=== PATIENT | male | born 1955 | race Caucasian/White ===

== ENCOUNTER 2018-05-03 19:30 | Inpatient (IN) | payer MEDICARE, OTHER ==
[~2018-05-03] VITALS: Ht 182.9 cm; Wt 93.4 kg
[~2018-05-03 19:30] MED LIST: ALPR0.5T6 PO; AMLO10TA4 PO; ASPI-612 PO; ATOR40TA59 PO; CARB15DR3 EACHEYE; CARB200T PO; DIVA500T4 PO; FENO54TA6 PO; FURO20TA3 PO; HYDR-2678 PO; HYDR-2868 PO; INSU100I17 SQ; ISOS30TA4 PO; LABE200T4 PO; LOSA25TA5 PO; METO25TA4 PO; OMEP20TA8 PO; PARO40TA3 PO; POLY17PO3 PO; TRAM50TA PO
[2018-05-03 20:02] LABS: BASO # 0.1 x10^3/uL (0.0-0.2); BASO % 1 % (0-3); EOS # 0.2 x10^3/uL (0.0-0.7); EOS % 2 % (0-3); HEMATOCRIT 29.9 % (39.0-53.0); LYMPH # 2.6 x10^3/uL (1.0-4.8); LYMPH % 20 % (24-48); MEAN CORPUSCULAR HEMOGLOBIN 31 pg (25-35); MEAN CORPUSCULAR HGB CONC 33 g/dL (31-37); MEAN CORPUSCULAR VOLUME 93 fL (79-100); MONO % 23 % (0-9); NEUT # 7.1 x10^3uL (1.8-7.7); NEUT % 55 % (31-73); PLATELET COUNT 334 x10^3/uL (140-400); RED BLOOD COUNT 3.22 x10^6/uL (4.30-5.70); RED CELL DISTRIBUTION WIDTH 17.3 % (11.5-14.5)
[2018-05-03 20:17] LABS: CALCIUM 9.6 mg/dL (8.5-10.1); GFR 34.1; POTASSIUM 4.5 mmol/L (3.5-5.1)
--- NOTE | 2018-05-03 20:20 | EKG ---
[facility] [address] [place] [address] Test Date: 2018-05-03 Test Time: 20:16:36 Pat Name: AUGUST MATA Department: Room: Gender: M [employer] Shearer: TW : 1955 Requested By: ISAAK MERAZ Order Number: [id number] Reading MD: Fahad Cook Measurements Intervals [place] Rate: 55 P: 42 WI: 178 QRS: -38 QRSD: 110 T: -68 QT: 432 QTc: 415 Interpretive Statements SINUS RHYTHM ABNORMAL LEFT AXIS DEVIATION LEFT ANTERIOR FASCICULAR BLOCK ST & T ABNORMALITY, CONSIDER HIGH LATERAL ISCHEMIA OR LEFT VENTRICULAR STRAIN INFERIOR ISCHEMIA OR LEFT VENTRICULAR STRAIN ABNORMAL ECG Electronically Signed On 05-04-2018 11:50:50 CDT by Fahad Cook
[2018-05-03 20:23] LABS: ALBUMIN 2.2 g/dL (3.4-5.0); ALBUMIN/GLOBULIN RATIO 0.4 (1.0-1.7); TOTAL BILIRUBIN 0.3 mg/dL (0.2-1.0); TOTAL PROTEIN 7.1 g/dL (6.4-8.2)
[2018-05-03] MEDS: fentaNYL PF VIAL 100 MCG/2 ML VIAL IV PRN (20:26)
[2018-05-03] MEDS ORDERED: ONDANSETRON PF 4 MG/2 ML VIAL. IV ONE (20:30)
[2018-05-03 20:38] LABS: % BANDS 5 % (0-9); % EOS 2 % (0-5); % LYMPHS 13 % (24-48); % MONOS 17 % (0-10); % MYELOS 1 % (0-0); % SEGS 62 % (35-66); ANISOCYTOSIS SLIGHT; PLT ESTIMATE ADEQUATE (ADEQUATE)
--- NOTE | 2018-05-03 20:57 | PHYS DOC ---
Past Medical History Past Medical History: Anemia, Anxiety, Bipolar, CVA, Diabetes-Type II, Hypertension, Other Additional Past Medical Histor: CHRONIC BACK PAIN,OSTEOMYELITIS,SPINAL STENOSIS ,CKD Past Surgical History: Coronary Bypass Surgery, Other Additional Past Surgical Histo: L LEG,BACK,L FOOT Alcohol Use: Sober Drug Use: None Adult General Chief Complaint Chief Complaint: ALTERED MENTAL STATUS HPI HPI Patient is a 62 year old [place] [facility] patient with history of CVA, left shoulder fracture, left ankle/foot cellulitis who is currently residing at [facility] for inpatient PT/OT rehab with reports of mental status changes with hallucinations. Patient's reportedly had hallucinations for the past 5 days. Initially, it was thought possibly due to his fentanyl and oxycodone. Since fentanyl was discontinued 3 days ago and patient has continued to have hallucinations at night. Patient reports feeling is that people are trying to treat her medically are orally hydrate him. Symptoms are usually present at that time. He is clearly anal 3 with GCS of 15. Denies chest pain, shortness of breath, fever chills, nausea vomiting and sweats. Reports left shoulder pain rated 2 recent fracture and chronic left ankle pain. No other acute symptoms or complaints. . Review of Systems Review of Systems ROS as per HPI. [] All other systems were reviewed and found to be within normal limits, except as documented in this note. Current Medications Current Medications Current Medications Medications (Trade) Dose Ordered Sig/Gema Start Time Stop Time Status Last Admin Dose Admin Fentanyl Citrate (Fentanyl 2ml Vial) 25 mcg PRN Q2HRS PRN 05/03/18 20:30 05/03/18 20:26 25 MCG Ondansetron HCl (Zofran) 4 mg 1X ONCE 05/03/18 20:30 05/03/18 20:31 DC 05/03/18 20:27 4 MG Allergies Allergies Allergies Coded Allergies Type Severity Reaction Last Updated Verified gabapentin Allergy Intermediate 03/05/16 Yes indomethacin Allergy Intermediate 03/05/16 Yes lisinopril Allergy Intermediate 03/05/16 Yes sertraline Allergy Intermediate 03/05/16 Yes Physical Exam Physical Exam Constitutional: Well developed, well nourished. [] HENT: Normocephalic, atraumatic, bilateral external ears normal, oropharynx moist. [] Eyes: PERRLA, EOMI, conjunctiva normal. [] Neck: Normal range of motion, no midline tenderness. [] Cardiovascular:Heart rate regular rhythm, no murmur.[] Lungs & Thorax: Bilateral breath sounds clear to auscultation. [] Abdomen: Bowel sounds normal, soft, no tenderness. [] Skin: Warm, dry. [] Back: No tenderness. [] Extremities: Left ankle swelling, tenderness, no skin breakdown, erythema or warmth. Left shoulder, deformity, bruising, tenderness. [] Neurologic: Alert and oriented X 3, normal motor function, normal sensory function, no focal deficits noted. [] Psychologic: Affect normal, judgement normal, mood normal. [] Current Patient Data Vital Signs Vital Signs Date Time Temp Pulse Resp B/P (MAP) Pulse Ox O2 Delivery O2 Flow Rate FiO2 05/03/18 20:26 14 96 Nasal Cannula 2.0 05/03/18 19:30 98.4 55 181/82 (115) 98.4 Lab Values Laboratory Tests Test 05/03/18 19:40 05/03/18 21:38 White Blood Count 13.0 x10^3/uL (4.0-11.0) H Red Blood Count 3.22 x10^6/uL (4.30-5.70) L Hemoglobin 10.0 g/dL (13.0-17.5) L Hematocrit 29.9 % (39.0-53.0) L Mean Corpuscular Volume 93 fL (79-100) Mean Corpuscular Hemoglobin 31 pg (25-35) Mean Corpuscular Hemoglobin Concent 33 g/dL (31-37) Red Cell Distribution Width 17.3 % (11.5-14.5) H Platelet Count 334 x10^3/uL (140-400) Neutrophils (%) (Auto) 55 % (31-73) Lymphocytes (%) (Auto) 20 % (24-48) L Monocytes (%) (Auto) 23 % (0-9) H Eosinophils (%) (Auto) 2 % (0-3) Basophils (%) (Auto) 1 % (0-3) Neutrophils # (Auto) 7.1 x10^3uL (1.8-7.7) Lymphocytes # (Auto) 2.6 x10^3/uL (1.0-4.8) Monocytes # (Auto) 3.0 x10^3/uL (0.0-1.1) H Eosinophils # (Auto) 0.2 x10^3/uL (0.0-0.7) Basophils # (Auto) 0.1 x10^3/uL (0.0-0.2) Segmented Neutrophils % 62 % (35-66) Band Neutrophils % 5 % (0-9) Lymphocytes % 13 % (24-48) L Monocytes % 17 % (0-10) H Eosinophils % 2 % (0-5) Myelocytes % 1 % (0-0) H Platelet Estimate Adequate (ADEQUATE) Anisocytosis Slight Erythrocyte Sedimentation Rate 103 (0-15) H D-Dimer (Elke) 1.85 ug/mlFEU (0.00-0.50) H Sodium Level 138 mmol/L (136-145) Potassium Level 4.5 mmol/L (3.5-5.1) Chloride Level 102 mmol/L (98-107) Carbon Dioxide Level 27 mmol/L (21-32) Anion Gap 9 (6-14) Blood Urea Nitrogen 31 mg/dL (8-26) H Creatinine 2.0 mg/dL (0.7-1.3) H Estimated GFR (Cockcroft-Gault) 34.1 BUN/Creatinine Ratio 16 (6-20) Glucose Level 137 mg/dL (70-99) H Calcium Level 9.6 mg/dL (8.5-10.1) Total Bilirubin 0.3 mg/dL (0.2-1.0) Aspartate Amino Transferase (AST) 14 U/L (15-37) L Alanine Aminotransferase (ALT) 12 U/L (16-63) L Alkaline Phosphatase 90 U/L (46-116) C-Reactive Protein, Quantitative 99.8 mg/L (0-3.3) H Total Protein 7.1 g/dL (6.4-8.2) Albumin 2.2 g/dL (3.4-5.0) L Albumin/Globulin Ratio 0.4 (1.0-1.7) L Thyroid Stimulating Hormone (TSH) 3.730 uIU/mL (0.358-3.74) Ethyl Alcohol Level < 10 mg/dL (0-10) Urine Collection Type Unknown Urine Color Yellow Urine Clarity Clear Urine pH 6.0 Urine Specific [place] 1.020 Urine Protein >=300 mg/dL (NEG-TRACE) Urine Glucose (UA) Negative mg/dL (NEG) Urine Ketones (Stick) Negative mg/dL (NEG) Urine Blood Small (NEG) Urine Nitrite Negative (NEG) Urine Bilirubin Negative (NEG) Urine Urobilinogen Dipstick 1.0 mg/dL (0.2 mg/dL) Urine Leukocyte Esterase Moderate (NEG) Urine RBC 0 /HPF (0-2) Urine WBC 20-40 /HPF (0-4) Urine Bacteria Moderate /HPF (0-FEW) Urine Mucus Mod /LPF Urine Sperm Present /HPF Urine Opiates Screen Neg (NEG) Urine Methadone Screen Neg (NEG) Urine Barbiturates Neg (NEG) Urine Phencyclidine Screen Neg (NEG) Urine Amphetamine/Methamphetamine Neg (NEG) Urine Benzodiazepines Screen Neg (NEG) Urine Cocaine Screen Neg (NEG) Urine Cannabinoids Screen Neg (NEG) Urine Ethyl Alcohol Neg (NEG) Laboratory Tests 05/03/18 19:40 Laboratory Tests 05/03/18 19:40 EKG EKG [] Radiology/Procedures Radiology/Procedures [CT head: No acute findings per radiology report Left ankle x-ray: Official radiology report pending] Course & Med Decision Making Course & Med Decision Making Pertinent Labs and Imaging studies reviewed. (See chart for details) [Patient with GCS of 15 ED. No hallucinations rest while in the emergency department. CT head, nonacute. Patient noted to have chronic renal insufficiency and elevated inflammatory/infectious disease markers with concern of recurrence of osteoarthritis of left foot. Will admit to the hospitalist service for anticipated infectious disease and neurology consult. Will defer anabolic utilizing patient to hospitalist. Inpatient bridge orders placed in consultation with Dr. marti. ] Dragon Disclaimer Dragon Disclaimer This electronic medical record was generated, in whole or in part, using a voice recognition dictation system. Departure Departure Impression: Primary Impression: Altered mental status Additional Impression: Left ankle pain Disposition: ADMITTED INPATIENT Admitting Physician: Jo Marti Condition: STABLE Referrals: MARILEE BACH APRN (PCP) Problem Qualifiers ISAAK MERAZ DO May 03, 2018 20:57
--- NOTE | 2018-05-03 21:07 | RAD ---
CT head without intravenous contrast History: Altered mental status. Comparison: CT head March 05, 2016. Technique: Axial images are obtained of the head from the skull base through the vertex without IV contrast. Exposure: One or more of the following individualized dose reduction techniques were utilized for this examination: 1. Automated exposure control 2. Adjustment of the mA and/or kV according to patient size 3. Use of iterative reconstruction technique Findings: The ventricles are appropriate in size, shape, and location for the patient's age. No obvious intracranial mass, mass-effect, midline shift, hemorrhage or obvious acute infarction is identified. Basilar cisterns are patent. Patchy, nonspecific white matter low-attenuation seen, probably from chronic microvascular ischemic disease. Bone windows demonstrate no acute calvarial abnormality. Mild mucosal disease involves left maxillary sinus. Impression: 1. No acute intracranial process. Please note that CT can be relatively insensitive to acute ischemic infarction for up to 24 hours after symptom onset. 2. Nonspecific white matter changes, probably from chronic microvascular ischemic disease. Electronically signed by: Garrick Fernandes MD (05/03/2018 9:03 PM) [facility]
[2018-05-03 21:46] LABS: BILIRUBIN,URINE NEGATIVE (NEG); CLARITY,URINE CLEAR; COLOR,URINE YELLOW; NITRITE,URINE NEGATIVE (NEG); PROTEIN,URINE >=300 mg/dL (NEG-TRACE)
[2018-05-03 21:50] LABS: BACTERIA,URINE MODERATE /HPF (0-FEW); RBC,URINE 0 /HPF (0-2); SPERM,URINE PRESENT /HPF; WBC,URINE 20-40 /HPF (0-4)
[2018-05-03 21:53] LABS: AMPHETAMINE/METHAMPHETAMINE NEG (NEG); BARBITURATES NEG (NEG); BENZODIAZEPINES NEG (NEG); CANNABINOIDS NEG (NEG); COCAINE NEG (NEG); METHADONE NEG (NEG); OPIATES NEG (NEG); PHENCYCLIDINE NEG (NEG)
[2018-05-03] MEDS ORDERED: ONDANSETRON PF 4 MG/2 ML VIAL. IV PRN (22:15)
[2018-05-03] MEDS ORDERED: fentaNYL PF VIAL 100 MCG/2 ML VIAL IV PRN (22:15)
[2018-05-03] MEDS ORDERED: PIP/TAZO PER PHARMACY MC PRN (22:30)
[2018-05-03] MEDS ORDERED: VANCOMYCIN PER PHARMACY MC PRN (22:30)
[2018-05-03] MEDS ORDERED: PIPERACILLIN/TAZOBACTAM 3.375 GM in IV NORMAL SALINE 50ML 50 ML IV ONE (22:45)
[2018-05-03] MEDS ORDERED: VANCOMYCIN 2 GM in IV NORMAL SALINE 500ML BAG 500 ML IV ONE (23:00)
[2018-05-04] MEDS: IV NORMAL SALINE 1000ML BAG 1,000 ML IV SCH ×3 (00:25→18:50)
[2018-05-04] MEDS: fentaNYL PF VIAL 100 MCG/2 ML VIAL IV PRN ×3 (01:28→14:34)
[2018-05-04 03:00] VITALS: BP 137/44
[2018-05-04] MEDS ORDERED: OXYC5TAB95 PO (03:11)
[2018-05-04] MEDS ORDERED: MULT-246 PO (03:11)
[2018-05-04] MEDS ORDERED: OMEG1CAP6 PO (03:11)
[2018-05-04] MEDS ORDERED: MICO71PO4 TP (03:11)
[2018-05-04] MEDS ORDERED: METO100T7 PO (03:11)
[2018-05-04] MEDS ORDERED: TEMA7.5C PO (03:11)
[2018-05-04] MEDS ORDERED: PARO40TA3 PO (03:11)
[2018-05-04] MEDS ORDERED: ZINC50TA33 PO (03:11)
[2018-05-04] MEDS ORDERED: CLON0.1T PO (03:11)
[2018-05-04] MEDS ORDERED: ALLO100T PO (03:11)
[2018-05-04] MEDS ORDERED: LIDO700A39 TP (03:11)
[2018-05-04] MEDS ORDERED: INSU100V13 SQ (03:11)
[2018-05-04] MEDS ORDERED: CHOL2000 PO (03:11)
[2018-05-04] MEDS: PIPERACILLIN/TAZOBACTAM 3.375 GM in IV NORMAL SALINE 50ML 50 ML IV SCH ×3 (05:59→18:50)
[2018-05-04 07:00] VITALS: BP 157/54
--- NOTE | 2018-05-04 07:58 | RAD ---
Three-view left ankle study Clinical indications: Lateral left ankle pain. History of osteomyelitis. FINDINGS: There is diffuse soft tissue swelling most prominent within the plantar aspect of the hindfoot. There is fragmentation of the calcaneus with apparent coronal fracture of the distal body with flattening of Boehler's angle and plantar subluxation of the navicular bone. This may be seen with Charcot's neuroarthropathy. No focal osteolytic process is seen to indicate osteomyelitis however. Mortise ankle joint appears intact. IMPRESSION: Fragmentation and fracture of the calcaneus which may be seen with Charcot's neuroarthropathy. Electronically signed by: Bk Estrada MD (05/04/2018 7:54 AM) [facility]
[2018-05-04] MEDS: LACTOBACILLUS RHAMNOSUS GG 1 CAPSULE. PO SCH ×2 (08:21→21:07)
--- NOTE | 2018-05-04 08:42 | PDOC1 ---
History and Physical Date of Admission Date of Admission DATE: 05/04/18 TIME: 08:39 Identification/Chief Complaint Chief Complaint foot pain, prior osteo Source Source: Chart review, Patient History of Present Illness History of Present Illness Mr. Byrd is a 62 year old admit from medical [facility] for confusion, disorientation and hallucination . Left foot pain, acute on chroinc prior osteo req. surg at [facility]. HAs had some confusion, he had worsening neuropathic pain, with pain not letting him sleep for days, shooting electric pain, a little improved with fentanyl and oxycodone. And he thought meds were causing confusion. fentanyl was discontinued 3 days ago He is upset about his medical care, and believes he has been in "[facility]" that people are just waiting around to ther. shoulder pain and foot pain 02/26, now 6 after meds Past Medical History Past Medical History [place] [facility] patient with history of CVA, left shoulder fracture, left ankle/foot cellulitis Cardiovascular: CAD, CHF, HTN, MO, Hyperlipidemia Pulmonary: No pertinent hx CENTRAL NERVOUS SYSTEM: CVA, Other GI: GERD, Peptic Ulcer disease, Other Heme/Onc: No pertinent hx Hepatobiliary: No pertinent hx Psych: Anxiety Musculoskeletal: Osteoarthritis Rheumatologic: No pertinent hx Infectious disease: No pertinent hx Renal/: Chronic renal insuff Past Surgical History Past Surgical History: CABG, Total hip replacement, Colon Resection, Other Family History Family History: Coronary Artery Disease, Heart Disease Family History: Parent Social History Smoke: No ALCOHOL: none Drugs: None Current Medications Current Medications Current Medications Fentanyl Citrate (Fentanyl 2ml Vial) 25 mcg PRN Q2HRS PRN IV SEVERE PAIN Last administered on 05/04/18at 08:21; Start 05/03/18 at 20:30; Stop 05/04/18 at 20 :29 Ondansetron HCl (Zofran) 4 mg 1X ONCE IV Last administered on 05/03/18at 20:27 ; Start 05/03/18 at 20:30; Stop 05/03/18 at 20:31; Status DC Ondansetron HCl (Zofran) 4 mg PRN Q8HRS PRN IV NAUSEA/VOMITING 1ST CHOICE Last administered on 05/03/18at 23:28; Start 05/03/18 at 22:15; Stop 05/04/18 at 22 :14 Fentanyl Citrate (Fentanyl 2ml Vial) 25 mcg PRN Q2MIN PRN IV SEVERE PAIN; Start 05/03/18 at 22:15; Stop 05/04/18 at 00:00; Status DC Sodium Chloride 1,000 ml @ 150 mls/hr Q6H40M IV Last administered on at 05:58; Start 05/03/18 at 22:30; Stop 05/04/18 at 22:29 Vancomycin HCl (Vanco Per Pharmacy) 1 each PRN DAILY PRN MC SEE COMMENTS Last administered on 05/04/18at 01:50; Start 05/03/18 at 22:30 Piperacillin Sod/ Tazobactam Sod (Zosyn Per Pharmacy) 1 each PRN DAILY PRN MC SEE COMMENTS; Start 05/03/18 at 22:30 Vancomycin HCl 2 gm/Sodium Chloride 500 ml @ 250 mls/hr 1X ONCE IV Last administered on 05/04/18at 00:24; Start 05/03/18 at 23:00; Stop 05/04/18 at 00 :59; Status DC Piperacillin Sod/ Tazobactam Sod 3.375 gm/Sodium Chloride 50 ml @ 100 mls/hr 1X ONCE IV Last administered on 05/03/18at 23:32; Start 05/03/18 at 22:45; Stop 05/03/18 at 23:14; Status DC Influenza Virus Vaccine (Afluria Trivalent [id number] Syringe) 0.5 ml ONCE ONCE VAX IM ; Start 05/04/18 at 09:00; Stop 05/04/18 at 09:01 Piperacillin Sod/ Tazobactam Sod 3.375 gm/Sodium Chloride 50 ml @ 100 mls/hr Q6HRS IV Last administered on 05/04/18at 05:59; Start 05/04/18 at 06:00 Lactobacillus Rhamnosus (Culturelle) 1 cap BID PO Last administered on at 08:21; Start 05/04/18 at 09:00 Vancomycin HCl 1.5 gm/Sodium Chloride 500 ml @ 250 mls/hr Q24H IV ; Start at 01:00 Vancomycin HCl (Vancomycin Trough Level) 1 each 1X ONCE MC ; Start 05/06/18 at 00:30; Stop 05/06/18 at 00:31 Active Scripts Active Reported Vitamin D (Cholecalciferol (Vitamin D3)) 2,000 Unit Capsule 1 Cap PO DAILY Zinc (Zinc Amino Acid Chelate) 50 Mg Tablet 50 Mg PO Temazepam 7.5 Mg Capsule 7.5 Mg PO Q12 PRN Paroxetine Hcl 40 Mg Tablet 1 Tab PO HS Oxycodone Hcl 5 Mg Tablet 1 Tab PO QID PRN Miconazorb Af (Miconazole Nitrate) 71 Gm Powder 71 Gm TP Multi-Vitamin Daily (Multivitamin) 1 Each Tablet 1 Each PO Metoprolol Tartrate 100 Mg Tablet 1 Tab PO BID Lidocaine 1 Each Adh..patch 1 Each TP Levemir (Insulin Detemir) 100 Unit/1 Ml Vial 25 Unit SQ HS Fish Oil 1,000 Mg Capsule ([place]-3 Fatty Acids/Fish Oil) 1 Each Capsule 1 Each PO Clonidine Hcl 0.1 Mg Tablet 0.1 Mg PO TID Allopurinol 100 Mg Tablet 2 Tab PO DAILY Lortab 5-325 mg Tablet (Hydrocodone/Acetaminophen) 1 Each Tablet 1 Tab PO PRN Q6HRS PRN Lofibra (Fenofibrate) 54 Mg Tablet 54 Mg PO DAILY Alprazolam 0.5 Mg Tablet 1 Tab PO TID PRN PRN Paroxetine Hcl 40 Mg Tablet 1 Tab PO HS Tramadol Hcl 50 Mg Tablet 1 Tab PO PRN Q6HRS Refresh Optive Eye Drops (Carboxymethylcellulos/Glycerin) 15 Ml Drops 1 Drop EACHEYE PRN BID PRN Atorvastatin Calcium 40 Mg Tablet 1 Tab PO DAILY Aspirin Ec (Aspirin) 81 Mg Tablet.dr 1 Tab PO DAILY Novolog Flexpen (Insulin Aspart) 100 Unit/1 Ml Insuln.pen 10 Unit SQ TIDAC Allergies Allergies: Coded Allergies: gabapentin (Verified Allergy, Intermediate, 03/05/16) indomethacin (Verified Allergy, Intermediate, 03/05/16) lisinopril (Verified Allergy, Intermediate, 03/05/16) sertraline (Verified Allergy, Intermediate, 03/05/16) ROS General: YES: Chills, Fatigue; No: Night Sweats, Malaise, Appetite, Other PSYCHOLOGICAL ROS: YES: Anxiety, Irritablity, Sleep disturbances, Other (PTSD) ; No: Behavioral Disorder, Concentration difficultie, Decreased libido, Depression, Disorientation, Hallucinations, Hostility, Memory difficulties, Mood Swings, Obsessive thoughts Eyes: No Blurry vision, No Decreased vision, No Double vision, No Dry eyes, No Excessive tearing, No Eye Pain, No Itchy Eyes, No Loss of vision, No Photophobia , No Scotomata, No Uses contacts, No Uses glasses, No Other HEENT: No: Heacaches, Visual Changes, Hearing change, Nasal congestion, Nasal discharge, Oral lesions, Sinus pain, Sore Throat, Epistaxis, Sneezing, Snoring, Tinnitus, Vertigo, Vocal changes, Other Respiratory: No: Cough, Hemoptysis, Orthopnea, Pleuritic Pain, Shortness of breath, SOB with excertion, Sputum Changes, Stridor, Tachypnea, Wheezing, Other Cardiovascular: No Chest Pain, No Palpitations, No Orthopnea, No Paroxysmal Noc. Dyspnea, No Edema, No Lt Headedness, No Other Gastrointestinal: No Nausea, No Vomiting, No Abdominal Pain, No Diarrhea, No Constipation, No Melena, No Hematochezia, No Other Genitourinary: No Dysuria, No Frequency, No Incontinence, No Hematuria, No Retention, No Discharge, No Urgency, No Pain, No Flank Pain, No Other, No , No , No , No , No , No , No Musculoskeletal: Yes Gait Disturbance, Yes Joint Pain, Yes Joint Stiffness, Yes Pain In: Neurological: Yes Gait Disturbance, Yes Other; No Behavorial Changes, No Bowel/Bladder ControlChng, No Confusion, No Dizziness, No Headaches, No Impaired Coord/balance, No Memory Loss, No Numbness/ Tingling, No Seizures, No Speech Problems, No Tremors, No Visual Changes, No Weakness Skin: Yes Dry Skin; No Eczema, No Hair Changes, No Lumps, No Mole Changes, No Mottling, No Nail Changes, No Pruritus, No Rash, No Skin Lesion Changes, No Other, No Acne Physical Exam General: Alert, Oriented X3, Cooperative, mild distress HEENT: Atraumatic, PERRLA, EOMI Lungs: Clear to auscultation, Normal air movement Heart: S1S2, other Abdomen: Normal bowel sounds, Soft Rectal Exam: not examined Extremities: No clubbing, No cyanosis, Normal pulses, Other (left foot swollen , not tender, chronic neuropathic pain) Skin: No rashes, No significant lesion Neuro: Normal speech, Normal tone, Sensation intact Psych/Mental Status: Mental status NL, Mood NL Vitals Vitals Vital Signs Date Time Temp Pulse Resp B/P (MAP) Pulse Ox O2 Delivery O2 Flow Rate FiO2 05/04/18 08:21 Nasal Cannula 2.0 05/04/18 07:00 98.4 64 16 157/54 (88) 94 98.4 Labs Labs Laboratory Tests Test 05/03/18 19:40 05/03/18 21:38 05/04/18 08:03 White Blood Count 13.0 x10^3/uL (4.0-11.0) Red Blood Count 3.22 x10^6/uL (4.30-5.70) Hemoglobin 10.0 g/dL (13.0-17.5) Hematocrit 29.9 % (39.0-53.0) Mean Corpuscular Volume 93 fL (79-100) Mean Corpuscular Hemoglobin 31 pg (25-35) Mean Corpuscular Hemoglobin Concent 33 g/dL (31-37) Red Cell Distribution Width 17.3 % (11.5-14.5) Platelet Count 334 x10^3/uL (140-400) Neutrophils (%) (Auto) 55 % (31-73) Lymphocytes (%) (Auto) 20 % (24-48) Monocytes (%) (Auto) 23 % (0-9) Eosinophils (%) (Auto) 2 % (0-3) Basophils (%) (Auto) 1 % (0-3) Neutrophils # (Auto) 7.1 x10^3uL (1.8-7.7) Lymphocytes # (Auto) 2.6 x10^3/uL (1.0-4.8) Monocytes # (Auto) 3.0 x10^3/uL (0.0-1.1) Eosinophils # (Auto) 0.2 x10^3/uL (0.0-0.7) Basophils # (Auto) 0.1 x10^3/uL (0.0-0.2) Segmented Neutrophils % 62 % (35-66) Band Neutrophils % 5 % (0-9) Lymphocytes % 13 % (24-48) Monocytes % 17 % (0-10) Eosinophils % 2 % (0-5) Myelocytes % 1 % (0-0) Platelet Estimate Adequate (ADEQUATE) Anisocytosis Slight Erythrocyte Sedimentation Rate 103 (0-15) D-Dimer (Elke) 1.85 ug/mlFEU (0.00-0.50) Sodium Level 138 mmol/L (136-145) Potassium Level 4.5 mmol/L (3.5-5.1) Chloride Level 102 mmol/L (98-107) Carbon Dioxide Level 27 mmol/L (21-32) Anion Gap 9 (6-14) Blood Urea Nitrogen 31 mg/dL (8-26) Creatinine 2.0 mg/dL (0.7-1.3) Estimated GFR (Cockcroft-Gault) 34.1 BUN/Creatinine Ratio 16 (6-20) Glucose Level 137 mg/dL (70-99) Calcium Level 9.6 mg/dL (8.5-10.1) Total Bilirubin 0.3 mg/dL (0.2-1.0) Aspartate Amino Transf (AST/SGOT) 14 U/L (15-37) Alanine Aminotransferase (ALT/SGPT) 12 U/L (16-63) Alkaline Phosphatase 90 U/L (46-116) C-Reactive Protein, Quantitative 99.8 mg/L (0-3.3) Total Protein 7.1 g/dL (6.4-8.2) Albumin 2.2 g/dL (3.4-5.0) Albumin/Globulin Ratio 0.4 (1.0-1.7) Thyroid Stimulating Hormone (TSH) 3.730 uIU/mL (0.358-3.74) Ethyl Alcohol Level < 10 mg/dL (0-10) Urine Collection Type Unknown Urine Color Yellow Urine Clarity Clear Urine pH 6.0 Urine Specific [place] 1.020 Urine Protein >=300 mg/dL (NEG-TRACE) Urine Glucose (UA) Negative mg/dL (NEG) Urine Ketones (Stick) Negative mg/dL (NEG) Urine Blood Small (NEG) Urine Nitrite Negative (NEG) Urine Bilirubin Negative (NEG) Urine Urobilinogen Dipstick 1.0 mg/dL (0.2 mg/dL) Urine Leukocyte Esterase Moderate (NEG) Urine RBC 0 /HPF (0-2) Urine WBC 20-40 /HPF (0-4) Urine Bacteria Moderate /HPF (0-FEW) Urine Mucus Mod /LPF Urine Sperm Present /HPF Urine Opiates Screen Neg (NEG) Urine Methadone Screen Neg (NEG) Urine Barbiturates Neg (NEG) Urine Phencyclidine Screen Neg (NEG) Urine Amphetamine/Methamphetamine Neg (NEG) Urine Benzodiazepines Screen Neg (NEG) Urine Cocaine Screen Neg (NEG) Urine Cannabinoids Screen Neg (NEG) Urine Ethyl Alcohol Neg (NEG) Glucose (Fingerstick) 180 mg/dL (70-99) Laboratory Tests Test 05/03/18 19:40 05/03/18 21:38 05/04/18 08:03 White Blood Count 13.0 x10^3/uL (4.0-11.0) Red Blood Count 3.22 x10^6/uL (4.30-5.70) Hemoglobin 10.0 g/dL (13.0-17.5) Hematocrit 29.9 % (39.0-53.0) Mean Corpuscular Volume 93 fL (79-100) Mean Corpuscular Hemoglobin 31 pg (25-35) Mean Corpuscular Hemoglobin Concent 33 g/dL (31-37) Red Cell Distribution Width 17.3 % (11.5-14.5) Platelet Count 334 x10^3/uL (140-400) Neutrophils (%) (Auto) 55 % (31-73) Lymphocytes (%) (Auto) 20 % (24-48) Monocytes (%) (Auto) 23 % (0-9) Eosinophils (%) (Auto) 2 % (0-3) Basophils (%) (Auto) 1 % (0-3) Neutrophils # (Auto) 7.1 x10^3uL (1.8-7.7) Lymphocytes # (Auto) 2.6 x10^3/uL (1.0-4.8) Monocytes # (Auto) 3.0 x10^3/uL (0.0-1.1) Eosinophils # (Auto) 0.2 x10^3/uL (0.0-0.7) Basophils # (Auto) 0.1 x10^3/uL (0.0-0.2) Segmented Neutrophils % 62 % (35-66) Band Neutrophils % 5 % (0-9) Lymphocytes % 13 % (24-48) Monocytes % 17 % (0-10) Eosinophils % 2 % (0-5) Myelocytes % 1 % (0-0) Platelet Estimate Adequate (ADEQUATE) Anisocytosis Slight Erythrocyte Sedimentation Rate 103 (0-15) D-Dimer (Elke) 1.85 ug/mlFEU (0.00-0.50) Sodium Level 138 mmol/L (136-145) Potassium Level 4.5 mmol/L (3.5-5.1) Chloride Level 102 mmol/L (98-107) Carbon Dioxide Level 27 mmol/L (21-32) Anion Gap 9 (6-14) Blood Urea Nitrogen 31 mg/dL (8-26) Creatinine 2.0 mg/dL (0.7-1.3) Estimated GFR (Cockcroft-Gault) 34.1 BUN/Creatinine Ratio 16 (6-20) Glucose Level 137 mg/dL (70-99) Calcium Level 9.6 mg/dL (8.5-10.1) Total Bilirubin 0.3 mg/dL (0.2-1.0) Aspartate Amino Transf (AST/SGOT) 14 U/L (15-37) Alanine Aminotransferase (ALT/SGPT) 12 U/L (16-63) Alkaline Phosphatase 90 U/L (46-116) C-Reactive Protein, Quantitative 99.8 mg/L (0-3.3) Total Protein 7.1 g/dL (6.4-8.2) Albumin 2.2 g/dL (3.4-5.0) Albumin/Globulin Ratio 0.4 (1.0-1.7) Thyroid Stimulating Hormone (TSH) 3.730 uIU/mL (0.358-3.74) Ethyl Alcohol Level < 10 mg/dL (0-10) Urine Collection Type Unknown Urine Color Yellow Urine Clarity Clear Urine pH 6.0 Urine Specific [place] 1.020 Urine Protein >=300 mg/dL (NEG-TRACE) Urine Glucose (UA) Negative mg/dL (NEG) Urine Ketones (Stick) Negative mg/dL (NEG) Urine Blood Small (NEG) Urine Nitrite Negative (NEG) Urine Bilirubin Negative (NEG) Urine Urobilinogen Dipstick 1.0 mg/dL (0.2 mg/dL) Urine Leukocyte Esterase Moderate (NEG) Urine RBC 0 /HPF (0-2) Urine WBC 20-40 /HPF (0-4) Urine Bacteria Moderate /HPF (0-FEW) Urine Mucus Mod /LPF Urine Sperm Present /HPF Urine Opiates Screen Neg (NEG) Urine Methadone Screen Neg (NEG) Urine Barbiturates Neg (NEG) Urine Phencyclidine Screen Neg (NEG) Urine Amphetamine/Methamphetamine Neg (NEG) Urine Benzodiazepines Screen Neg (NEG) Urine Cocaine Screen Neg (NEG) Urine Cannabinoids Screen Neg (NEG) Urine Ethyl Alcohol Neg (NEG) Glucose (Fingerstick) 180 mg/dL (70-99) VTE Prophylaxis Ordered VTE Prophylaxis Devices: No VTE Pharmacological Prophylaxi: Yes Assessment/Plan Assessment/Plan sepsis, cellulitis probable osteomyelitis left foot Dm2 CAD, hx CABG Htn, chronic diastoilc CHF left arm fracture, shoulder and wrist, poorly mobile with left foot and left arm unusable PHU MESA MD May 04, 2018 08:42
[2018-05-04] MEDS ORDERED: TEMAZEPAM 7.5 MG CAPSULE PO PRN (08:45)
[2018-05-04] MEDS ORDERED: traMADol 50 MG TABLET PO PRN (08:45)
[2018-05-04] MEDS ORDERED: POLYVINYL ALCOHOL 1.4% OPHTH SOLUTION 15ML BOTTLE. OU PRN (09:15)
[2018-05-04] MEDS ORDERED: SALIVA STIMULANT AGENT 44ML SPRAY BOTTLE. PO PRN (09:15)
[2018-05-04 09:44] LABS: BASO % 0 % (0-3); EOS # 0.2 x10^3/uL (0.0-0.7); EOS % 1 % (0-3); HEMATOCRIT 28.3 % (39.0-53.0); HEMOGLOBIN 9.1 g/dL (13.0-17.5); LYMPH # 2.1 x10^3/uL (1.0-4.8); LYMPH % 18 % (24-48); MEAN CORPUSCULAR HEMOGLOBIN 30 pg (25-35); MEAN CORPUSCULAR HGB CONC 32 g/dL (31-37); MEAN CORPUSCULAR VOLUME 94 fL (79-100); MONO # 2.2 x10^3/uL (0.0-1.1); MONO % 19 % (0-9); NEUT % 61 % (31-73); PLATELET COUNT 318 x10^3/uL (140-400); RED CELL DISTRIBUTION WIDTH 17.3 % (11.5-14.5); WHITE BLOOD COUNT 11.5 x10^3/uL (4.0-11.0)
[2018-05-04 09:49] LABS: CALCIUM 9.1 mg/dL (8.5-10.1); CREATININE 2.2 mg/dL (0.7-1.3); GFR 30.6; POTASSIUM 4.8 mmol/L (3.5-5.1)
--- NOTE | 2018-05-04 10:16 | PDOC ---
Infectious Disease Note Vital Sign Vital Signs Vital Signs Date Time Temp Pulse Resp B/P (MAP) Pulse Ox O2 Delivery O2 Flow Rate FiO2 05/04/18 09:00 Nasal Cannula 2.0 05/04/18 07:00 98.4 64 16 157/54 (88) 94 98.4 Labs Lab Laboratory Tests Test 05/03/18 19:40 05/03/18 21:38 05/04/18 08:03 05/04/18 09:00 White Blood Count 13.0 x10^3/uL (4.0-11.0) 11.5 x10^3/uL (4.0-11.0) Red Blood Count 3.22 x10^6/uL (4.30-5.70) 3.00 x10^6/uL (4.30-5.70) Hemoglobin 10.0 g/dL (13.0-17.5) 9.1 g/dL (13.0-17.5) Hematocrit 29.9 % (39.0-53.0) 28.3 % (39.0-53.0) Mean Corpuscular Volume 93 fL (79-100) 94 fL (79-100) Mean Corpuscular Hemoglobin 31 pg (25-35) 30 pg (25-35) Mean Corpuscular Hemoglobin Concent 33 g/dL (31-37) 32 g/dL (31-37) Red Cell Distribution Width 17.3 % (11.5-14.5) 17.3 % (11.5-14.5) Platelet Count 334 x10^3/uL (140-400) 318 x10^3/uL (140-400) Neutrophils (%) (Auto) 55 % (31-73) 61 % (31-73) Lymphocytes (%) (Auto) 20 % (24-48) 18 % (24-48) Monocytes (%) (Auto) 23 % (0-9) 19 % (0-9) Eosinophils (%) (Auto) 2 % (0-3) 1 % (0-3) Basophils (%) (Auto) 1 % (0-3) 0 % (0-3) Neutrophils # (Auto) 7.1 x10^3uL (1.8-7.7) 7.0 x10^3uL (1.8-7.7) Lymphocytes # (Auto) 2.6 x10^3/uL (1.0-4.8) 2.1 x10^3/uL (1.0-4.8) Monocytes # (Auto) 3.0 x10^3/uL (0.0-1.1) 2.2 x10^3/uL (0.0-1.1) Eosinophils # (Auto) 0.2 x10^3/uL (0.0-0.7) 0.2 x10^3/uL (0.0-0.7) Basophils # (Auto) 0.1 x10^3/uL (0.0-0.2) 0.0 x10^3/uL (0.0-0.2) Segmented Neutrophils % 62 % (35-66) Band Neutrophils % 5 % (0-9) Lymphocytes % 13 % (24-48) Monocytes % 17 % (0-10) Eosinophils % 2 % (0-5) Myelocytes % 1 % (0-0) Platelet Estimate Adequate (ADEQUATE) Anisocytosis Slight Erythrocyte Sedimentation Rate 103 (0-15) D-Dimer (Elke) 1.85 ug/mlFEU (0.00-0.50) Sodium Level 138 mmol/L (136-145) 139 mmol/L (136-145) Potassium Level 4.5 mmol/L (3.5-5.1) 4.8 mmol/L (3.5-5.1) Chloride Level 102 mmol/L (98-107) 103 mmol/L (98-107) Carbon Dioxide Level 27 mmol/L (21-32) 29 mmol/L (21-32) Anion Gap 9 (6-14) 7 (6-14) Blood Urea Nitrogen 31 mg/dL (8-26) 29 mg/dL (8-26) Creatinine 2.0 mg/dL (0.7-1.3) 2.2 mg/dL (0.7-1.3) Estimated GFR (Cockcroft-Gault) 34.1 30.6 BUN/Creatinine Ratio 16 (6-20) Glucose Level 137 mg/dL (70-99) 208 mg/dL (70-99) Calcium Level 9.6 mg/dL (8.5-10.1) 9.1 mg/dL (8.5-10.1) Total Bilirubin 0.3 mg/dL (0.2-1.0) Aspartate Amino Transf (AST/SGOT) 14 U/L (15-37) Alanine Aminotransferase (ALT/SGPT) 12 U/L (16-63) Alkaline Phosphatase 90 U/L (46-116) C-Reactive Protein, Quantitative 99.8 mg/L (0-3.3) Total Protein 7.1 g/dL (6.4-8.2) Albumin 2.2 g/dL (3.4-5.0) Albumin/Globulin Ratio 0.4 (1.0-1.7) Thyroid Stimulating Hormone (TSH) 3.730 uIU/mL (0.358-3.74) Ethyl Alcohol Level < 10 mg/dL (0-10) Urine Collection Type Unknown Urine Color Yellow Urine Clarity Clear Urine pH 6.0 Urine Specific [place] 1.020 Urine Protein >=300 mg/dL (NEG-TRACE) Urine Glucose (UA) Negative mg/dL (NEG) Urine Ketones (Stick) Negative mg/dL (NEG) Urine Blood Small (NEG) Urine Nitrite Negative (NEG) Urine Bilirubin Negative (NEG) Urine Urobilinogen Dipstick 1.0 mg/dL (0.2 mg/dL) Urine Leukocyte Esterase Moderate (NEG) Urine RBC 0 /HPF (0-2) Urine WBC 20-40 /HPF (0-4) Urine Bacteria Moderate /HPF (0-FEW) Urine Mucus Mod /LPF Urine Sperm Present /HPF Urine Opiates Screen Neg (NEG) Urine Methadone Screen Neg (NEG) Urine Barbiturates Neg (NEG) Urine Phencyclidine Screen Neg (NEG) Urine Amphetamine/Methamphetamine Neg (NEG) Urine Benzodiazepines Screen Neg (NEG) Urine Cocaine Screen Neg (NEG) Urine Cannabinoids Screen Neg (NEG) Urine Ethyl Alcohol Neg (NEG) Glucose (Fingerstick) 180 mg/dL (70-99) Objective Assessment Leukocytosis Left ankle fracture - h/o Osteomyelitis UTI -POA Encephalopathy - improving ALISON on CKD LUE fracture Bipolar DM Plan Plan of Care D/c Vanc with Renal failure and dose Zyvox - d/c Tramadol Cont zosyn for now MRI ankle Await Ortho eval F/u labs and cults Obtain [facility] records Thank you # [id number] MARLENE CARLOS MD May 04, 2018 10:16
[2018-05-04] MEDS: METOPROLOL TART IMMED RELEASE 50 MG TABLET. PO SCH ×2 (10:28→21:11)
[2018-05-04] MEDS: ENOXAPARIN 40 MG/0.4 ML SYRINGE. SQ SCH (10:28)
[2018-05-04] MEDS: HYDROcodone/APAP 5/325MG 1 TAB TABLET PO PRN (10:28)
[2018-05-04] MEDS: LINEZOLID 600 MG TABLET PO SCH ×2 (10:29→21:07)
[2018-05-04] MEDS: ALPRAZolam 0.5 MG TABLET PO PRN ×2 (10:29→14:34)
[2018-05-04] MEDS: GABAPENTIN 400 MG CAPSULE. PO SCH ×3 (10:29→21:11)
[2018-05-04] MEDS: ALLOPURINOL 100 MG TABLET. PO SCH (10:29)
[2018-05-04] MEDS: ASPIRIN ENTERIC COATED 81 MG TABLET.DR. PO SCH (10:29)
[2018-05-04] MEDS: cloNIDine HCL 0.1 MG TABLET PO SCH ×3 (10:29→21:07)
[2018-05-04 10:42] VITALS: BP 173/56
--- NOTE | 2018-05-04 11:59 | RAD ---
MR of the left ankle HISTORY: Osteomyelitis with debridement of the left ankle and heel 3 months ago. New fracture. TECHNIQUE: Routine multiplanar sequences are obtained. FINDINGS: There is a large defect at the posteroinferior calcaneal tuberosity, could be related to chronic osteomyelitis or postsurgical defect. There is a fracture of the distal calcaneus with about 10 mm displacement. There is some ill-defined edema and loss of fatty marrow signal on T1-weighted images at the calcaneus both proximal and distal to this fracture. There is subluxation at the posterior subtalar joint which is distracted. Fluid within the widened posterior subtalar joint. Subchondral marrow edema at the adjacent talus. Mild subchondral marrow edema at the distal posterior tibia. Marrow edema within the distal fibula and the medial malleolus. There is mild diffuse soft tissue edema. There is intramuscular edema and atrophy. No organized fluid collection or drainable abscess. Small tibiotalar joint effusion of uncertain sterility. Peroneal tendons are intact. No acute discontinuity of the lateral collateral ligaments or inferior tibiofibular ligament. The flexor pollicis longus tendon demonstrates tendinosis with partial tearing but no rupture. The Achilles tendon demonstrates moderate thickening of the insertion. No acute tear. IMPRESSION: 1. Well-defined chronic appearing defect at the posteroinferior calcaneus, could be due to surgical resection or chronic osteomyelitis. 2. Fracture of the distal calcaneus, does not appear acute by MRI imaging. Fracture could be related to diabetic neuropathy if there is no history of appropriate trauma. Pathologic fracture due to calcaneal osteomyelitis is also possible. Heterogeneous calcaneal marrow signal marginating this fracture, is likely related to the fracture itself, although osteomyelitis is difficult to exclude. 3. There is a subtalar and tibiotalar joint effusion of uncertain sterility. Could be sterile fluid or infected content. 4. Moderate insertional Achilles tendinosis. 5. Patchy bone marrow edema at the talus, distal tibia and distal fibula, likely degenerative or reactive. #6 subluxation of the posterior subtalar joint. Electronically signed by: Garrick Xavier MD (05/04/2018 11:56 AM) [facility]
--- NOTE | 2018-05-04 12:02 | CONS ---
DATE OF CONSULTATION: 05/04/2018 REQUESTING PHYSICIAN: Dr. Jo Craig. REASON FOR CONSULTATION: Left heel pain. HISTORY OF PRESENT ILLNESS: The patient is a 62-year-old male who is currently residing at [facility] in [place], [place] for rehabilitation stay who was admitted with mental status changes and hallucinations for several days prior to his admission. Reason for orthopedic consultation is chronic left foot pain, which he says has been going on for years. He says it is a burning pain that bothers him mainly at night rather than with activity and he indicates a previous history of surgery on the left heel, he says, a lot of which he understood was removed. PAST MEDICAL HISTORY: Significant for previous stroke, type 2 diabetes, hypertension, bipolar disorder, anemia, anxiety, chronic back pain, osteomyelitis, spinal stenosis, heart disease. PAST SURGICAL HISTORY: Coronary bypass surgery, surgery on his left heel, on his left leg and his back. FAMILY HISTORY: Unknown. SOCIAL HISTORY: He is treated at [facility]. Denies any alcohol or drug use. MEDICATIONS: List is reviewed. ALLERGIES: INCLUDE GABAPENTIN, INDOMETHACIN, LISINOPRIL, AND SERTRALINE. REVIEW OF SYSTEMS: Significant for the left heel pain. Denies any radiating pain in the extremities or other extremity or joint pain. Denies any skin problems or drainage or for that matter increased pain with activity related issues in the left heel. Really denies any significant pain in the other foot. PHYSICAL EXAMINATION: GENERAL: A pleasant, cooperative 62-year-old male. EXTREMITIES: Examination of lower extremities reveals intact skin over his heel. He certainly does have some deformity due to either removal or deformity of the bone in the left heel. Achilles insertion is intact. It is somewhat prominent over the posterior aspect of his heel, but there is no pain on any palpation or on push off. He really has no pain on palpation over the heel itself or the fat pad or surrounding medially or laterally. He has minimal subtalar joint motion, overall good ankle joint motion and stability. Normal examination of the contralateral foot and ankle. Sensation is grossly intact as is capillary refill bilaterally. No evidence of any skin breakdown, ulceration or really even significant callus formation over the feet. Normal alignment, stability of bilateral hips and knees. DIAGNOSTIC DATA: X-rays of the left foot with particular attention to the heel area reveals what looks to me like Charcot changes with significant bony deformity. The heel is somewhat flared out as a result of a little prominent posteriorly at the Achilles insertion. Subtalar joint is extremely narrowed as a result. The ankle joint appears to be well maintained and aside from the apparent Charcot changes of the heel and around the calcaneocuboid joint area do not appear to significantly affect the rest of the mid foot or forefoot. IMPRESSION: Nighttime non-activity related left heel pain. TREATMENT PLAN: I was very careful to clarify with him that he does not have any increase in pain with ambulation or pressure on the foot at all. He says his heel christiansen and throbs at night. He is currently in a bunny boot for protection. There are no areas of specific tenderness on any palpation over the heel and no evidence of any type of skin breakdown. I went over with him that while the x-rays did show some changes consistent with a condition we sometimes see in diabetes, Charcot deformity, that this is not surgically treatable. Furthermore, if there is even any attempt at making correction to the bony area, which I do not recommend at all because of lack of any point tenderness, it would likely open him up for further problems, infection, wound healing, etc. and could even compromised Achilles insertion. Especially, since he only has the problem at night, I do not think this is surgically treatable at all. It is certainly possible that he could have medical management of the issue; however, apparently lists an ALLERGY TO GABAPENTIN, which he was unsure exactly what this was; however, perhaps another agent like Lyrica could be appropriate in the longer term for him. I do not see any benefit in any orthopedic or surgical intervention at all and other than the above medical treatment, which can be directed by his ongoing medical providers, follow up with me would not be necessary or desired. ESDRAS FLORES MD DR: BILL/clarisa JOB#: [id number] / [id number]
[2018-05-04] MEDS: INSULIN LISPRO 300 UNITS/3 ML INSULN.PEN. SQ SCH ×2 (12:23→18:54)
--- NOTE | 2018-05-04 13:00 | CONS ---
DATE OF CONSULTATION: 05/04/2018 LOCATION: The patient's room 504. REQUESTING PHYSICIAN: Dr. Hannah. REASON FOR CONSULTATION: Left ankle pain, history of osteomyelitis. HISTORY OF PRESENT ILLNESS: The patient is a 62-year-old gentleman who is a alf resident at [facility]. States within the last month, he has fallen and suffered a fracture to his left upper extremity. He states that several days ago, he got out of bed, although he is instructed not to. He states he had to go to the restroom and states that his left ankle gave out. He denies any pain or cracking or crunching sound, but he was brought to [facility] Emergency Room on the evening of 05/03/2018 secondary to mental status change with hallucinations. On arrival, he had a white count of 13,000. Sed rate was 103. CT scan of the head showed no acute intracranial process. Ankle x-ray revealed fragmentation of fracture of the calcaneus, which may be seen with Charcot neuropathy. He has been afebrile, but his urinalysis is suggestive of a urinary tract infection. I placed her on vancomycin and Zosyn. Currently, he is fairly comfortable. Denies any gross headaches. No sore throat or cough or chest pain. No nausea, vomiting, diarrhea. Does have some complications at times with urinary retention. Denies any rashes. PAST MEDICAL HISTORY: Positive for fracture of the left shoulder. 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 Hyperlipidemia; nicotine dependence, in remission; bipolar disorder; major depressive disorder; post-traumatic stress; obstructive sleep apnea; dry eye syndrome; cataracts; history of right eye retinal hemorrhage; hypertension; atherosclerotic heart disease; hemorrhoids; idiopathic chronic gout; spinal stenosis; history of osteomyelitis of the left ankle; chronic kidney disease; BPH; erectile dysfunction; Hirschsprung disease; history of TIA; peripheral vascular disease with angioplasty; right artificial hip. REVIEW OF SYSTEMS: Otherwise negative. ALLERGIES: Gabapentin, indomethacin, lisinopril, and sertraline. SOCIAL HISTORY: He is a alf resident, smoking, no alcohol. FAMILY HISTORY: Noncontributory. CURRENT MEDICATIONS: Include Zosyn, vancomycin, allopurinol, Xanax, Ecotrin, Lipitor, Catapres, Lovenox, fentanyl, insulin, lactobacillus, Zofran, Paxil, Restoril, Ultram. PHYSICAL EXAMINATION: VITAL SIGNS: He is afebrile, temperature 98.4, pulse 64, respirations 16, blood pressure 157/54, satting 94% on 2 liters. CONSTITUTIONAL: He is cooperative. He is in no acute distress. He is lying in bed. His left arm is in a sling. HEENT: He has normal conjunctivae. Oral cavity, pharynx is dry. NECK: Supple, no JVD. LUNGS: Clear to auscultation. HEART: S1, S2. ABDOMEN: Obese, soft, nontender, no guarding. EXTREMITIES: Without clubbing or cyanosis. His left ankle has trace to 1+ edema. There is no bruising associated with the ankle. He has a well-healed scar in the posterior aspect. There is no gross erythema or warmth, but is mildly tender left shoulder, again has some tenderness. NEUROLOGICAL: He is alert and oriented. Affect is appropriate. SKIN: Warm to touch without signs of rash. LABORATORY VALUES: White count 13, hemoglobin 10, platelets of 334 with segs 62, bands 5, lymphs 13, monos 17. Creatinine of 2, glucose 137. Normal liver function study tests. C-reactive protein of 99.8. Sed rate was 103. Imaging reviewed in history of present illness. ASSESSMENT: 1. Leukocytosis. 2. Left ankle fracture, history of osteomyelitis treated by Dr. Alonso roque at [facility]. Last followup was about a month ago, he states in the wound care center. 3. Urinary tract infection, present on admission. 4. Encephalopathy, seems to be improving. 5. Acute kidney injury on chronic kidney disease, left upper extremity fracture. 6. Bipolar disorder. 7. Diabetes. RECOMMENDATIONS: We will discontinue the vancomycin with his renal failure, dose Zyvox, discontinue the tramadol and continue the Zosyn. MRI his ankle. Await orthopedic evaluation. Follow up labs and cultures obtained on [facility] records. Thank you for asking us to participate in this patient's care. Should you have further questions, please do not hesitate to contact me. MARLENE CARLOS MD DR: LEANNA/clarisa JOB#: [id number] / [id number]
--- NOTE | 2018-05-04 14:21 | PDOC2 ---
NEUROLOGY CONSULT Date of Admission Date of Admission DATE: 05/04/18 TIME: 14:03 Reason for Consult Reason for Consult: IMPRESSION: Metabolic encephalopathy. Hallucinations. UTI. Leukocytosis. Elevated ESR, 103. Elevated CRP 99.8. Left LE cellulitis. Left shoulder fracture, 3 weeks ago. Left distal calcaneus fracture, chronic. Osteomyelitis. Renal failure. CKD. Anemia. Right C7 radiculopathy. CAD s/p CABG. Bipolar disorder. RECOMMENDATIONS/PLAN: EEG. Lab: see orders. Please consult ID. Treat medical diseases. OT/PT. Discussed with his at bedside. HISTORY OF THE PRESENT ILLNESS: 62-y-old male patient with above medical and orthopedic diseases was treated win outside hospital then went rehab. He was noted MS changes and hallucinations. After discontinued narcotics, but he still has hallucination, so he was brought to the ER of [facility]. Past Medical History Past Medical History ID rehabilitation skilled nursing patient with history of CVA, left shoulder fracture, left ankle/foot cellulitis Cardiovascular: CAD, CHF, HTN, [place], Hyperlipidemia Pulmonary: No pertinent hx CENTRAL NERVOUS SYSTEM: CVA, Other GI: GERD, Peptic Ulcer disease, Other Heme/Onc: No pertinent hx Hepatobiliary: No pertinent hx Psych: Anxiety Musculoskeletal: Osteoarthritis Rheumatologic: No pertinent hx Infectious disease: No pertinent hx Renal/: Chronic renal insuff Past Surgical History CABG, Total hip replacement, Colon Resection, Other Family History Coronary Artery Disease, Heart Disease Social History Smoke: No ALCOHOL: none Drugs: None ALLERGY: Reviewed. MEDICATIONS: Refer to MAR REVIEW OF SYSTEMS: Constitutional: No malnutrition, weight loss, cachexia. Head: No traumatic brain or head injury. Skin: No edema, or rash. Ear: No infection. Eyes: No vision loss or color blindness. Nose: No bleeding or purulent discharges. Hearing: No hearing decrease. Cardiac: CAD, s/p CABG, HTN. Pulmonary: No COPD. GI: No GI ulcer, GI bleeding. Urinary/genital: CKD. Endocrinologic: Diabetes Mellitus. Skeletomuscular: Fractures in shoulder and foot. Neurological: see HP. Psychiatric: Denies drug use/abuse. Otherwise, not [id number] review of systems. PHYSICAL EXAMINATION: General appearance is in subacute distress. HEENT: Normocephalic and nontraumatic. Eyes, nose, ears, and throat are unremarkable. Neck is supple. No lymphadenopathy. No crepitus. Cardiovascular: S1, S2, regular rate and rhythm. Pulmonary: Clear to auscultation bilaterally. Abdomen: Bowel sounds are positive. Abdomen is soft, nontender, and nondistended. Extremities: No rash, lesions, or edema. No restriction of range of motion NEUROLOGICAL EXAMINATION: Awake. Oriented partially to time, knew place and person. PERRL. EOMI. CN: no focal findings. Muscle tone: within normal. Muscle strength: 4 UE, 4- LE DTR: 1-2 Plantar reflex: Flexor response at right side. Not able to access left side since wrapped. Gait: not examined in bed. Sensory exam: no abnormal findings. No cerebellar signs elicited. F-T-N test fine Current Medications Current Medications Current Medications Fentanyl Citrate (Fentanyl 2ml Vial) 25 mcg PRN Q2HRS PRN IV SEVERE PAIN Last administered on 05/04/18at 08:21; Start 05/03/18 at 20:30; Stop 05/04/18 at 20 :29 Ondansetron HCl (Zofran) 4 mg 1X ONCE IV Last administered on 05/03/18at 20:27 ; Start 05/03/18 at 20:30; Stop 05/03/18 at 20:31; Status DC Ondansetron HCl (Zofran) 4 mg PRN Q8HRS PRN IV NAUSEA/VOMITING 1ST CHOICE Last administered on 05/03/18at 23:28; Start 05/03/18 at 22:15; Stop 05/04/18 at 22 :14 Fentanyl Citrate (Fentanyl 2ml Vial) 25 mcg PRN Q2MIN PRN IV SEVERE PAIN; Start 05/03/18 at 22:15; Stop 05/04/18 at 00:00; Status DC Sodium Chloride 1,000 ml @ 150 mls/hr Q6H40M IV Last administered on at 05:58; Start 05/03/18 at 22:30; Stop 05/04/18 at 22:29 Vancomycin HCl (Vanco Per Pharmacy) 1 each PRN DAILY PRN MC SEE COMMENTS Last administered on 05/04/18at 01:50; Start 05/03/18 at 22:30; Stop 05/04/18 at 10 :05; Status DC Piperacillin Sod/ Tazobactam Sod (Zosyn Per Pharmacy) 1 each PRN DAILY PRN MC SEE COMMENTS; Start 05/03/18 at 22:30 Vancomycin HCl 2 gm/Sodium Chloride 500 ml @ 250 mls/hr 1X ONCE IV Last administered on 05/04/18at 00:24; Start 05/03/18 at 23:00; Stop 05/04/18 at 00 :59; Status DC Piperacillin Sod/ Tazobactam Sod 3.375 gm/Sodium Chloride 50 ml @ 100 mls/hr 1X ONCE IV Last administered on 05/03/18at 23:32; Start 05/03/18 at 22:45; Stop 05/03/18 at 23:14; Status DC Influenza Virus Vaccine (Afluria Trivalent [id number] Syringe) 0.5 ml ONCE ONCE VAX IM ; Start 05/04/18 at 09:00; Stop 05/04/18 at 09:01; Status DC Piperacillin Sod/ Tazobactam Sod 3.375 gm/Sodium Chloride 50 ml @ 100 mls/hr Q6HRS IV Last administered on 05/04/18at 12:19; Start 05/04/18 at 06:00 Lactobacillus Rhamnosus (Culturelle) 1 cap BID PO Last administered on at 08:21; Start 05/04/18 at 09:00 Vancomycin HCl 1.5 gm/Sodium Chloride 500 ml @ 250 mls/hr Q24H IV ; Start at 01:00; Stop 05/05/18 at 01:00; Status DC Vancomycin HCl (Vancomycin Trough Level) 1 each 1X ONCE MC ; Start 05/06/18 at 00:30; Stop 05/06/18 at 00:30; Status DC Allopurinol (Zyloprim) 200 mg DAILY PO Last administered on 05/04/18at 10:29; Start 05/04/18 at 10:00 Alprazolam (Xanax) 0.5 mg TID PRN PRN PO ANXIETY / AGITATION Last administered on 05/04/18at 10:29; Start 05/04/18 at 08:45 Aspirin (Ecotrin) 81 mg DAILY08 PO Last administered on 05/04/18at 10:29; Start 05/04/18 at 10:00 Atorvastatin Calcium (Lipitor) 40 mg QHS PO ; Start 05/04/18 at 21:00 Clonidine HCl (Catapres) 0.1 mg TID PO Last administered on 05/04/18at 10:29; Start 05/04/18 at 10:00 Acetaminophen/ Hydrocodone Bitart (Lortab 5/325) 1 tab PRN Q6HRS PRN PO PAIN MILD Last administered on 05/04/18at 10:28; Start 05/04/18 at 08:45 Temazepam (Restoril) 7.5 mg PRN QHS PRN PO INSOMNIA; Start 05/04/18 at 08:45 Tramadol HCl (Ultram) 50 mg PRN Q6HRS PRN PO MODERATE PAIN; Start 05/04/18 at 08:45; Stop 05/04/18 at 10:13; Status DC Artificial Tears (Artificial Tears) 1 drop PRN Q15MIN PRN OU DRY EYE; Start at 09:15 Insulin Human Lispro (HumaLOG) 10 units TIDWMEALS SQ Last administered on 05/04at 12:23; Start 05/04/18 at 12:00 Insulin Glargine (Lantus) 25 units QHS SQ ; Start 05/04/18 at 21:00 Metoprolol Tartrate (Lopressor) 100 mg BID PO Last administered on 05/04/18at 10:28; Start 05/04/18 at 10:00 Paroxetine HCl (Paxil) 40 mg QHS PO ; Start 05/04/18 at 21:00 Gabapentin (Neurontin) 400 mg TID PO Last administered on 05/04/18at 10:29; Start 05/04/18 at 09:30 Saliva Substitute (Biotene Moisturizing Mouth) 2 spray PRN Q15MIN PRN PO DRY MOUTH; Start 05/04/18 at 09:15 Enoxaparin Sodium (Lovenox Per Pharmacy Prophylaxis Dosing) 1 each PRN DAILY PRN MC SEE COMMENTS; Start 05/05/18 at 17:00 Enoxaparin Sodium (Lovenox 40mg Syringe) 40 mg DAILY SQ Last administered on at 10:28; Start 05/04/18 at 10:00 Linezolid (Zyvox) 600 mg BID PO Last administered on 05/04/18at 10:29; Start 05/04/18 at 10:30 Active Scripts Active Reported Vitamin D (Cholecalciferol (Vitamin D3)) 2,000 Unit Capsule 1 Cap PO DAILY Zinc (Zinc Amino Acid Chelate) 50 Mg Tablet 50 Mg PO Temazepam 7.5 Mg Capsule 7.5 Mg PO Q12 PRN Paroxetine Hcl 40 Mg Tablet 1 Tab PO HS Oxycodone Hcl 5 Mg Tablet 1 Tab PO QID PRN Miconazorb Af (Miconazole Nitrate) 71 Gm Powder 71 Gm TP Multi-Vitamin Daily (Multivitamin) 1 Each Tablet 1 Each PO Metoprolol Tartrate 100 Mg Tablet 1 Tab PO BID Lidocaine 1 Each Adh..patch 1 Each TP Levemir (Insulin Detemir) 100 Unit/1 Ml Vial 25 Unit SQ HS Fish Oil 1,000 Mg Capsule (Ramona-3 Fatty Acids/Fish Oil) 1 Each Capsule 1 Each PO Clonidine Hcl 0.1 Mg Tablet 0.1 Mg PO TID Allopurinol 100 Mg Tablet 2 Tab PO DAILY Lortab 5-325 mg Tablet (Hydrocodone/Acetaminophen) 1 Each Tablet 1 Tab PO PRN Q6HRS PRN Lofibra (Fenofibrate) 54 Mg Tablet 54 Mg PO DAILY Alprazolam 0.5 Mg Tablet 1 Tab PO TID PRN PRN Paroxetine Hcl 40 Mg Tablet 1 Tab PO HS Tramadol Hcl 50 Mg Tablet 1 Tab PO PRN Q6HRS Refresh Optive Eye Drops (Carboxymethylcellulos/Glycerin) 15 Ml Drops 1 Drop EACHEYE PRN BID PRN Atorvastatin Calcium 40 Mg Tablet 1 Tab PO DAILY Aspirin Ec (Aspirin) 81 Mg Tablet.dr 1 Tab PO DAILY Novolog Flexpen (Insulin Aspart) 100 Unit/1 Ml Insuln.pen 10 Unit SQ TIDAC Allergies Allergies: Allergies Coded Allergies Type Severity Reaction Last Updated Verified gabapentin Allergy Intermediate 05/04/18 Yes indomethacin Allergy Intermediate 03/05/16 Yes lisinopril Allergy Intermediate 03/05/16 Yes sertraline Allergy Intermediate 03/05/16 Yes ROS Review of System The patient denies any associated fevers, chills, headache, ear pain, rhinorrhea , sore throat, stiff neck, productive cough, chest pain, shortness of breath, back or flank pain, abdominal pain, nausea, vomiting, diarrhea, constipation, dysuria, rash, numbness, weakness, tingling, incontinence, difficulty ambulating, or diaphoresis. Physical Exam Physical Exam General: Well developed, well nourished, no acute distress, well appearing HEENT: Pupils equally round and reactive to light, EOMI, no discharge, normal conjunctiva Neck: Supple, no nuchal rigidity, no JVD, trachea midline, no tenderness Cardiac: RRR, no murmurs, no gallops, no rubs Chest/Lungs: CTAB, no wheeze, no rhonchi, no crackles Abdomen: soft, non-distended, no guarding, no peritoneal signs, non-tender Back: No tenderness Extremities: no edema, pulses intact, non-tender,capillary refill <3 sec bilateral upper and lower extremities, Neuro: Alert and oriented x 4, no focal deficits, normal speech Vitals Vitals: Vital Signs Date Time Temp Pulse Resp B/P (MAP) Pulse Ox O2 Delivery O2 Flow Rate FiO2 05/04/18 12:19 Nasal Cannula 2.0 05/04/18 10:42 99.0 64 18 173/56 (95) 94 99.0 Labs Labs Laboratory Tests Test 05/03/18 19:40 05/03/18 21:38 05/04/18 08:03 05/04/18 09:00 White Blood Count 13.0 x10^3/uL (4.0-11.0) 11.5 x10^3/uL (4.0-11.0) Red Blood Count 3.22 x10^6/uL (4.30-5.70) 3.00 x10^6/uL (4.30-5.70) Hemoglobin 10.0 g/dL (13.0-17.5) 9.1 g/dL (13.0-17.5) Hematocrit 29.9 % (39.0-53.0) 28.3 % (39.0-53.0) Mean Corpuscular Volume 93 fL (79-100) 94 fL (79-100) Mean Corpuscular Hemoglobin 31 pg (25-35) 30 pg (25-35) Mean Corpuscular Hemoglobin Concent 33 g/dL (31-37) 32 g/dL (31-37) Red Cell Distribution Width 17.3 % (11.5-14.5) 17.3 % (11.5-14.5) Platelet Count 334 x10^3/uL (140-400) 318 x10^3/uL (140-400) Neutrophils (%) (Auto) 55 % (31-73) 61 % (31-73) Lymphocytes (%) (Auto) 20 % (24-48) 18 % (24-48) Monocytes (%) (Auto) 23 % (0-9) 19 % (0-9) Eosinophils (%) (Auto) 2 % (0-3) 1 % (0-3) Basophils (%) (Auto) 1 % (0-3) 0 % (0-3) Neutrophils # (Auto) 7.1 x10^3uL (1.8-7.7) 7.0 x10^3uL (1.8-7.7) Lymphocytes # (Auto) 2.6 x10^3/uL (1.0-4.8) 2.1 x10^3/uL (1.0-4.8) Monocytes # (Auto) 3.0 x10^3/uL (0.0-1.1) 2.2 x10^3/uL (0.0-1.1) Eosinophils # (Auto) 0.2 x10^3/uL (0.0-0.7) 0.2 x10^3/uL (0.0-0.7) Basophils # (Auto) 0.1 x10^3/uL (0.0-0.2) 0.0 x10^3/uL (0.0-0.2) Segmented Neutrophils % 62 % (35-66) Band Neutrophils % 5 % (0-9) Lymphocytes % 13 % (24-48) Monocytes % 17 % (0-10) Eosinophils % 2 % (0-5) Myelocytes % 1 % (0-0) Platelet Estimate Adequate (ADEQUATE) Anisocytosis Slight Erythrocyte Sedimentation Rate 103 (0-15) D-Dimer (Elke) 1.85 ug/mlFEU (0.00-0.50) Sodium Level 138 mmol/L (136-145) 139 mmol/L (136-145) Potassium Level 4.5 mmol/L (3.5-5.1) 4.8 mmol/L (3.5-5.1) Chloride Level 102 mmol/L (98-107) 103 mmol/L (98-107) Carbon Dioxide Level 27 mmol/L (21-32) 29 mmol/L (21-32) Anion Gap 9 (6-14) 7 (6-14) Blood Urea Nitrogen 31 mg/dL (8-26) 29 mg/dL (8-26) Creatinine 2.0 mg/dL (0.7-1.3) 2.2 mg/dL (0.7-1.3) Estimated GFR (Cockcroft-Gault) 34.1 30.6 BUN/Creatinine Ratio 16 (6-20) Glucose Level 137 mg/dL (70-99) 208 mg/dL (70-99) Calcium Level 9.6 mg/dL (8.5-10.1) 9.1 mg/dL (8.5-10.1) Total Bilirubin 0.3 mg/dL (0.2-1.0) Aspartate Amino Transf (AST/SGOT) 14 U/L (15-37) Alanine Aminotransferase (ALT/SGPT) 12 U/L (16-63) Alkaline Phosphatase 90 U/L (46-116) C-Reactive Protein, Quantitative 99.8 mg/L (0-3.3) Total Protein 7.1 g/dL (6.4-8.2) Albumin 2.2 g/dL (3.4-5.0) Albumin/Globulin Ratio 0.4 (1.0-1.7) Thyroid Stimulating Hormone (TSH) 3.730 uIU/mL (0.358-3.74) Ethyl Alcohol Level < 10 mg/dL (0-10) Urine Collection Type Unknown Urine Color Yellow Urine Clarity Clear Urine pH 6.0 Urine Specific [place] 1.020 Urine Protein >=300 mg/dL (NEG-TRACE) Urine Glucose (UA) Negative mg/dL (NEG) Urine Ketones (Stick) Negative mg/dL (NEG) Urine Blood Small (NEG) Urine Nitrite Negative (NEG) Urine Bilirubin Negative (NEG) Urine Urobilinogen Dipstick 1.0 mg/dL (0.2 mg/dL) Urine Leukocyte Esterase Moderate (NEG) Urine RBC 0 /HPF (0-2) Urine WBC 20-40 /HPF (0-4) Urine Bacteria Moderate /HPF (0-FEW) Urine Mucus Mod /LPF Urine Sperm Present /HPF Urine Opiates Screen Neg (NEG) Urine Methadone Screen Neg (NEG) Urine Barbiturates Neg (NEG) Urine Phencyclidine Screen Neg (NEG) Urine Amphetamine/Methamphetamine Neg (NEG) Urine Benzodiazepines Screen Neg (NEG) Urine Cocaine Screen Neg (NEG) Urine Cannabinoids Screen Neg (NEG) Urine Ethyl Alcohol Neg (NEG) Glucose (Fingerstick) 180 mg/dL (70-99) Test 05/04/18 11:51 Glucose (Fingerstick) 208 mg/dL (70-99) Laboratory Tests Test 05/03/18 19:40 05/03/18 21:38 05/04/18 08:03 05/04/18 09:00 White Blood Count 13.0 x10^3/uL (4.0-11.0) 11.5 x10^3/uL (4.0-11.0) Red Blood Count 3.22 x10^6/uL (4.30-5.70) 3.00 x10^6/uL (4.30-5.70) Hemoglobin 10.0 g/dL (13.0-17.5) 9.1 g/dL (13.0-17.5) Hematocrit 29.9 % (39.0-53.0) 28.3 % (39.0-53.0) Mean Corpuscular Volume 93 fL (79-100) 94 fL (79-100) Mean Corpuscular Hemoglobin 31 pg (25-35) 30 pg (25-35) Mean Corpuscular Hemoglobin Concent 33 g/dL (31-37) 32 g/dL (31-37) Red Cell Distribution Width 17.3 % (11.5-14.5) 17.3 % (11.5-14.5) Platelet Count 334 x10^3/uL (140-400) 318 x10^3/uL (140-400) Neutrophils (%) (Auto) 55 % (31-73) 61 % (31-73) Lymphocytes (%) (Auto) 20 % (24-48) 18 % (24-48) Monocytes (%) (Auto) 23 % (0-9) 19 % (0-9) Eosinophils (%) (Auto) 2 % (0-3) 1 % (0-3) Basophils (%) (Auto) 1 % (0-3) 0 % (0-3) Neutrophils # (Auto) 7.1 x10^3uL (1.8-7.7) 7.0 x10^3uL (1.8-7.7) Lymphocytes # (Auto) 2.6 x10^3/uL (1.0-4.8) 2.1 x10^3/uL (1.0-4.8) Monocytes # (Auto) 3.0 x10^3/uL (0.0-1.1) 2.2 x10^3/uL (0.0-1.1) Eosinophils # (Auto) 0.2 x10^3/uL (0.0-0.7) 0.2 x10^3/uL (0.0-0.7) Basophils # (Auto) 0.1 x10^3/uL (0.0-0.2) 0.0 x10^3/uL (0.0-0.2) Segmented Neutrophils % 62 % (35-66) Band Neutrophils % 5 % (0-9) Lymphocytes % 13 % (24-48) Monocytes % 17 % (0-10) Eosinophils % 2 % (0-5) Myelocytes % 1 % (0-0) Platelet Estimate Adequate (ADEQUATE) Anisocytosis Slight Erythrocyte Sedimentation Rate 103 (0-15) D-Dimer (Elke) 1.85 ug/mlFEU (0.00-0.50) Sodium Level 138 mmol/L (136-145) 139 mmol/L (136-145) Potassium Level 4.5 mmol/L (3.5-5.1) 4.8 mmol/L (3.5-5.1) Chloride Level 102 mmol/L (98-107) 103 mmol/L (98-107) Carbon Dioxide Level 27 mmol/L (21-32) 29 mmol/L (21-32) Anion Gap 9 (6-14) 7 (6-14) Blood Urea Nitrogen 31 mg/dL (8-26) 29 mg/dL (8-26) Creatinine 2.0 mg/dL (0.7-1.3) 2.2 mg/dL (0.7-1.3) Estimated GFR (Cockcroft-Gault) 34.1 30.6 BUN/Creatinine Ratio 16 (6-20) Glucose Level 137 mg/dL (70-99) 208 mg/dL (70-99) Calcium Level 9.6 mg/dL (8.5-10.1) 9.1 mg/dL (8.5-10.1) Total Bilirubin 0.3 mg/dL (0.2-1.0) Aspartate Amino Transf (AST/SGOT) 14 U/L (15-37) Alanine Aminotransferase (ALT/SGPT) 12 U/L (16-63) Alkaline Phosphatase 90 U/L (46-116) C-Reactive Protein, Quantitative 99.8 mg/L (0-3.3) Total Protein 7.1 g/dL (6.4-8.2) Albumin 2.2 g/dL (3.4-5.0) Albumin/Globulin Ratio 0.4 (1.0-1.7) Thyroid Stimulating Hormone (TSH) 3.730 uIU/mL (0.358-3.74) Ethyl Alcohol Level < 10 mg/dL (0-10) Urine Collection Type Unknown Urine Color Yellow Urine Clarity Clear Urine pH 6.0 Urine Specific [place]on 1.020 Urine Protein >=300 mg/dL (NEG-TRACE) Urine Glucose (UA) Negative mg/dL (NEG) Urine Ketones (Stick) Negative mg/dL (NEG) Urine Blood Small (NEG) Urine Nitrite Negative (NEG) Urine Bilirubin Negative (NEG) Urine Urobilinogen Dipstick 1.0 mg/dL (0.2 mg/dL) Urine Leukocyte Esterase Moderate (NEG) Urine RBC 0 /HPF (0-2) Urine WBC 20-40 /HPF (0-4) Urine Bacteria Moderate /HPF (0-FEW) Urine Mucus Mod /LPF Urine Sperm Present /HPF Urine Opiates Screen Neg (NEG) Urine Methadone Screen Neg (NEG) Urine Barbiturates Neg (NEG) Urine Phencyclidine Screen Neg (NEG) Urine Amphetamine/Methamphetamine Neg (NEG) Urine Benzodiazepines Screen Neg (NEG) Urine Cocaine Screen Neg (NEG) Urine Cannabinoids Screen Neg (NEG) Urine Ethyl Alcohol Neg (NEG) Glucose (Fingerstick) 180 mg/dL (70-99) Test 05/04/18 11:51 Glucose (Fingerstick) 208 mg/dL (70-99) QUENTIN KHAN MD May 04, 2018 14:21
[2018-05-04 14:32] VITALS: BP 148/45
[2018-05-04 19:00] VITALS: BP 190/55
[2018-05-04] MEDS: PARoxetine 20 MG TABLET PO SCH (21:07)
[2018-05-04] MEDS: ATORVASTATIN CALCIUM 40 MG TABLET. PO SCH (21:07)
[2018-05-04] MEDS: INSULIN GLARGINE 300 UNITS/3 ML INSULN.PEN. SQ SCH (21:17)
[2018-05-04 23:00] VITALS: BP 162/66
[2018-05-05] VITALS (8 sets, daily range): BP systolic 94–193; BP diastolic 47–73
[2018-05-05] MEDS: PIPERACILLIN/TAZOBACTAM 3.375 GM in IV NORMAL SALINE 50ML 50 ML IV SCH ×2 (00:32→05:18)
[2018-05-05] MEDS ORDERED: VANCOMYCIN 1.5 GM in IV NORMAL SALINE 500ML BAG 500 ML IV SCH (01:00)
[2018-05-05] MEDS: HYDROcodone/APAP 5/325MG 1 TAB TABLET PO PRN ×3 (04:41→18:21)
[2018-05-05] MEDS: ALPRAZolam 0.5 MG TABLET PO PRN ×2 (04:46→08:58)
[2018-05-05 06:06] LABS: CALCIUM 9.1 mg/dL (8.5-10.1); CREATININE 2.5 mg/dL (0.7-1.3); GFR 26.4; POTASSIUM 4.7 mmol/L (3.5-5.1)
[2018-05-05 06:07] LABS: BASO % 0 % (0-3); EOS # 0.3 x10^3/uL (0.0-0.7); EOS % 3 % (0-3); HEMATOCRIT 26.3 % (39.0-53.0); HEMOGLOBIN 8.9 g/dL (13.0-17.5); LYMPH # 1.3 x10^3/uL (1.0-4.8); LYMPH % 13 % (24-48); MEAN CORPUSCULAR HEMOGLOBIN 31 pg (25-35); MEAN CORPUSCULAR HGB CONC 34 g/dL (31-37); MEAN CORPUSCULAR VOLUME 93 fL (79-100); MONO % 20 % (0-9); NEUT # 6.4 x10^3uL (1.8-7.7); NEUT % 64 % (31-73); PLATELET COUNT 330 x10^3/uL (140-400); RED BLOOD COUNT 2.83 x10^6/uL (4.30-5.70); RED CELL DISTRIBUTION WIDTH 17.1 % (11.5-14.5)
--- NOTE | 2018-05-05 07:03 | PDOC ---
Infectious Disease Note Subjective Subjective Additional info from [facility]. Previous cult[facility] grew PSA/Enterococcus faecalis/Prevotella/STCN/Diptheroids and was on Zosyn. Admitted to [facility] in September and underwent stenting to [facility] and underwent L heel I and D 10/13/[address] Jaime. - no positive cults. Treated initially with zyvox and Meropenem and cont the Meropenem for 6 weeks at [facility] and then unknown oral abx for 6 weeks. Underwent 30 HBO treatments. Wound cult 12/30/17 - Corynebacterium. Was discharged from wound care 02/[address] Sneed Doing ok this am but has some constipation No F/C/S/N/V/D/Rash/SOA. + appetite ROS ROS o/w neg Vital Sign Vital Signs Vital Signs Date Time Temp Pulse Resp B/P (MAP) Pulse Ox O2 Delivery O2 Flow Rate FiO2 05/05/18 06:00 94 Nasal Cannula 2.0 05/05/18 04:41 16 05/05/18 03:00 97.1 63 134/53 (80) 97.1 Physical Exam PHYSICAL EXAM CONSTITUTIONAL: He is cooperative. He is in no acute distress. He is lying in bed. His left arm is in a sling. HEENT: He has normal conjunctivae. Oral cavity, pharynx is dry. NECK: Supple, no JVD. LUNGS: Clear to auscultation. HEART: S1, S2. ABDOMEN: Obese, soft, nontender, no guarding. EXTREMITIES: Without clubbing or cyanosis. His left ankle has trace to 1+ edema. There is no bruising associated with the ankle. He has a well-healed scar in the posterior aspect. There is no gross erythema or warmth, but is mildly tender left shoulder, again has some tenderness. NEUROLOGICAL: He is alert and oriented. Affect is appropriate. SKIN: Warm to touch without signs of rash. Labs Lab Laboratory Tests Test 05/04/18 08:03 05/04/18 09:00 05/04/18 11:51 05/04/18 17:10 Glucose (Fingerstick) 180 mg/dL (70-99) 208 mg/dL (70-99) 252 mg/dL (70-99) White Blood Count 11.5 x10^3/uL (4.0-11.0) Red Blood Count 3.00 x10^6/uL (4.30-5.70) Hemoglobin 9.1 g/dL (13.0-17.5) Hematocrit 28.3 % (39.0-53.0) Mean Corpuscular Volume 94 fL (79-100) Mean Corpuscular Hemoglobin 30 pg (25-35) Mean Corpuscular Hemoglobin Concent 32 g/dL (31-37) Red Cell Distribution Width 17.3 % (11.5-14.5) Platelet Count 318 x10^3/uL (140-400) Neutrophils (%) (Auto) 61 % (31-73) Lymphocytes (%) (Auto) 18 % (24-48) Monocytes (%) (Auto) 19 % (0-9) Eosinophils (%) (Auto) 1 % (0-3) Basophils (%) (Auto) 0 % (0-3) Neutrophils # (Auto) 7.0 x10^3uL (1.8-7.7) Lymphocytes # (Auto) 2.1 x10^3/uL (1.0-4.8) Monocytes # (Auto) 2.2 x10^3/uL (0.0-1.1) Eosinophils # (Auto) 0.2 x10^3/uL (0.0-0.7) Basophils # (Auto) 0.0 x10^3/uL (0.0-0.2) Sodium Level 139 mmol/L (136-145) Potassium Level 4.8 mmol/L (3.5-5.1) Chloride Level 103 mmol/L (98-107) Carbon Dioxide Level 29 mmol/L (21-32) Anion Gap 7 (6-14) Blood Urea Nitrogen 29 mg/dL (8-26) Creatinine 2.2 mg/dL (0.7-1.3) Estimated GFR (Cockcroft-Gault) 30.6 Glucose Level 208 mg/dL (70-99) Calcium Level 9.1 mg/dL (8.5-10.1) Test 05/04/18 18:40 05/05/18 05:20 Glucose (Fingerstick) 257 mg/dL (70-99) White Blood Count 10.0 x10^3/uL (4.0-11.0) Red Blood Count 2.83 x10^6/uL (4.30-5.70) Hemoglobin 8.9 g/dL (13.0-17.5) Hematocrit 26.3 % (39.0-53.0) Mean Corpuscular Volume 93 fL (79-100) Mean Corpuscular Hemoglobin 31 pg (25-35) Mean Corpuscular Hemoglobin Concent 34 g/dL (31-37) Red Cell Distribution Width 17.1 % (11.5-14.5) Platelet Count 330 x10^3/uL (140-400) Neutrophils (%) (Auto) 64 % (31-73) Lymphocytes (%) (Auto) 13 % (24-48) Monocytes (%) (Auto) 20 % (0-9) Eosinophils (%) (Auto) 3 % (0-3) Basophils (%) (Auto) 0 % (0-3) Neutrophils # (Auto) 6.4 x10^3uL (1.8-7.7) Lymphocytes # (Auto) 1.3 x10^3/uL (1.0-4.8) Monocytes # (Auto) 2.0 x10^3/uL (0.0-1.1) Eosinophils # (Auto) 0.3 x10^3/uL (0.0-0.7) Basophils # (Auto) 0.0 x10^3/uL (0.0-0.2) Sodium Level 139 mmol/L (136-145) Potassium Level 4.7 mmol/L (3.5-5.1) Chloride Level 105 mmol/L (98-107) Carbon Dioxide Level 26 mmol/L (21-32) Anion Gap 8 (6-14) Blood Urea Nitrogen 29 mg/dL (8-26) Creatinine 2.5 mg/dL (0.7-1.3) Estimated GFR (Cockcroft-Gault) 26.4 Glucose Level 244 mg/dL (70-99) Calcium Level 9.1 mg/dL (8.5-10.1) Micro MRI IMPRESSION: 1. Well-defined chronic appearing defect at the posteroinferior calcaneus, could be due to surgical resection or chronic osteomyelitis. 2. Fracture of the distal calcaneus, does not appear acute by MRI imaging. Fracture could be related to diabetic neuropathy if there is no history of appropriate trauma. Pathologic fracture due to calcaneal osteomyelitis is also possible. Heterogeneous calcaneal marrow signal marginating this fracture, is likely related to the fracture itself, although osteomyelitis is difficult to exclude. 3. There is a subtalar and tibiotalar joint effusion of uncertain sterility. Could be sterile fluid or infected content. 4. Moderate insertional Achilles tendinosis. 5. Patchy bone marrow edema at the talus, distal tibia and distal fibula, likely degenerative or reactive. #6 subluxation of the posterior subtalar joint. Objective Assessment Leukocytosis - better - may be sec to UTI Left ankle fracture - h/o Osteomyelitis - appears chronic UTI -POA Encephalopathy - improving AILSON on CKD worse LUE fracture Bipolar DM Plan Plan of Care Cont Zyvox is tolerating - d/c'd Tramadol and cont zosyn for now but adjust dose. Will treat for UTI as ankle changes appear chronic. F/u urine cult May need Renal eval Appreciate Ortho eval F/u labs in am and cults Obtain [facility] records MARLENE CARLOS MD May 05, 2018 07:03
[2018-05-05] MEDS: LINEZOLID 600 MG TABLET PO SCH ×2 (08:58→21:04)
[2018-05-05] MEDS: cloNIDine HCL 0.1 MG TABLET PO SCH ×3 (08:58→21:00)
[2018-05-05] MEDS: ASPIRIN ENTERIC COATED 81 MG TABLET.DR. PO SCH (08:58)
[2018-05-05] MEDS: METOPROLOL TART IMMED RELEASE 50 MG TABLET. PO SCH ×2 (08:58→21:00)
[2018-05-05] MEDS: GABAPENTIN 400 MG CAPSULE. PO SCH ×3 (08:58→21:03)
[2018-05-05] MEDS: LACTOBACILLUS RHAMNOSUS GG 1 CAPSULE. PO SCH ×2 (08:59→21:03)
[2018-05-05] MEDS: ENOXAPARIN 40 MG/0.4 ML SYRINGE. SQ SCH (08:59)
[2018-05-05] MEDS: ALLOPURINOL 100 MG TABLET. PO SCH (08:59)
[2018-05-05] MEDS: INSULIN LISPRO 300 UNITS/3 ML INSULN.PEN. SQ SCH ×3 (09:09→18:23)
[2018-05-05] MEDS: PIPERACILLIN/TAZOBACTAM 2.25 GM in IV NORMAL SALINE 50ML 50 ML IV SCH ×3 (11:43→23:33)
--- NOTE | 2018-05-05 12:03 | PDOC ---
PROGRESS NOTES History of Present Illness History of Present Illness Pt seen and examined Odd affect today LEONID RN VSS Notes reviewed Vitals Vitals Vital Signs Date Time Temp Pulse Resp B/P (MAP) Pulse Ox O2 Delivery O2 Flow Rate FiO2 05/05/18 08:58 61 185/66 05/05/18 08:30 Nasal Cannula 2.0 05/05/18 07:00 98.1 18 95 98.1 Physical Exam Physical Exam CONSTITUTIONAL: Sleeping, awakens HEENT: He has normal conjunctivae. Oral cavity, pharynx is dry. NECK: Supple, no JVD. LUNGS: Clear to auscultation. HEART: S1, S2. ABDOMEN: Obese, soft, nontender, no guarding. EXTREMITIES: Without clubbing or cyanosis. His left ankle has trace to 1+ edema. There is no bruising associated with the ankle. He has a well-healed scar in the posterior aspect. There is no gross erythema or warmth, but is mildly tender left shoulder, again has some tenderness. NEUROLOGICAL: Odd affect SKIN: Warm to touch without signs of rash. General: Alert, Oriented X3, Cooperative, mild distress Lungs: Clear Abdomen: Normal bowel sounds, Soft Extremities: No clubbing, No cyanosis, Normal pulses, Other (left foot swollen , not tender, chronic neuropathic pain) Skin: No rashes, No significant lesion Labs LABS Laboratory Tests Test 05/04/18 17:10 05/04/18 18:40 05/04/18 21:05 05/05/18 05:20 Glucose (Fingerstick) 252 mg/dL (70-99) 257 mg/dL (70-99) 264 mg/dL (70-99) White Blood Count 10.0 x10^3/uL (4.0-11.0) Red Blood Count 2.83 x10^6/uL (4.30-5.70) Hemoglobin 8.9 g/dL (13.0-17.5) Hematocrit 26.3 % (39.0-53.0) Mean Corpuscular Volume 93 fL (79-100) Mean Corpuscular Hemoglobin 31 pg (25-35) Mean Corpuscular Hemoglobin Concent 34 g/dL (31-37) Red Cell Distribution Width 17.1 % (11.5-14.5) Platelet Count 330 x10^3/uL (140-400) Neutrophils (%) (Auto) 64 % (31-73) Lymphocytes (%) (Auto) 13 % (24-48) Monocytes (%) (Auto) 20 % (0-9) Eosinophils (%) (Auto) 3 % (0-3) Basophils (%) (Auto) 0 % (0-3) Neutrophils # (Auto) 6.4 x10^3uL (1.8-7.7) Lymphocytes # (Auto) 1.3 x10^3/uL (1.0-4.8) Monocytes # (Auto) 2.0 x10^3/uL (0.0-1.1) Eosinophils # (Auto) 0.3 x10^3/uL (0.0-0.7) Basophils # (Auto) 0.0 x10^3/uL (0.0-0.2) Sodium Level 139 mmol/L (136-145) Potassium Level 4.7 mmol/L (3.5-5.1) Chloride Level 105 mmol/L (98-107) Carbon Dioxide Level 26 mmol/L (21-32) Anion Gap 8 (6-14) Blood Urea Nitrogen 29 mg/dL (8-26) Creatinine 2.5 mg/dL (0.7-1.3) Estimated GFR (Cockcroft-Gault) 26.4 Glucose Level 244 mg/dL (70-99) Calcium Level 9.1 mg/dL (8.5-10.1) Test 05/05/18 08:03 Glucose (Fingerstick) 195 mg/dL (70-99) Review of Systems Review of Systems co weakness co hunger Assessment and Plan Assessmemt and Plan Leukocytosis Left ankle fracture UTI Encephalopathy ALISON LUE fracture Bipolar DM Plan ID following Labs Home meds Cont Zyvox is tolerating - d/c'd Tramadol and cont zosyn for now but adjust dose. Will treat for UTI as ankle changes appear chronic. F/u urine cult May need Renal eval Ortho following F/u labs in am and cults Comment Review of Relevant I have reviewed the following items rebeka (where applicable) has been applied. Labs Laboratory Tests Test 05/03/18 19:40 05/03/18 21:38 05/04/18 06:00 05/04/18 08:03 White Blood Count 13.0 x10^3/uL (4.0-11.0) Red Blood Count 3.22 x10^6/uL (4.30-5.70) Hemoglobin 10.0 g/dL (13.0-17.5) Hematocrit 29.9 % (39.0-53.0) Mean Corpuscular Volume 93 fL (79-100) Mean Corpuscular Hemoglobin 31 pg (25-35) Mean Corpuscular Hemoglobin Concent 33 g/dL (31-37) Red Cell Distribution Width 17.3 % (11.5-14.5) Platelet Count 334 x10^3/uL (140-400) Neutrophils (%) (Auto) 55 % (31-73) Lymphocytes (%) (Auto) 20 % (24-48) Monocytes (%) (Auto) 23 % (0-9) Eosinophils (%) (Auto) 2 % (0-3) Basophils (%) (Auto) 1 % (0-3) Neutrophils # (Auto) 7.1 x10^3uL (1.8-7.7) Lymphocytes # (Auto) 2.6 x10^3/uL (1.0-4.8) Monocytes # (Auto) 3.0 x10^3/uL (0.0-1.1) Eosinophils # (Auto) 0.2 x10^3/uL (0.0-0.7) Basophils # (Auto) 0.1 x10^3/uL (0.0-0.2) Segmented Neutrophils % 62 % (35-66) Band Neutrophils % 5 % (0-9) Lymphocytes % 13 % (24-48) Monocytes % 17 % (0-10) Eosinophils % 2 % (0-5) Myelocytes % 1 % (0-0) Platelet Estimate Adequate (ADEQUATE) Anisocytosis Slight Erythrocyte Sedimentation Rate 103 (0-15) D-Dimer (Elke) 1.85 ug/mlFEU (0.00-0.50) Sodium Level 138 mmol/L (136-145) Potassium Level 4.5 mmol/L (3.5-5.1) Chloride Level 102 mmol/L (98-107) Carbon Dioxide Level 27 mmol/L (21-32) Anion Gap 9 (6-14) Blood Urea Nitrogen 31 mg/dL (8-26) Creatinine 2.0 mg/dL (0.7-1.3) Estimated GFR (Cockcroft-Gault) 34.1 BUN/Creatinine Ratio 16 (6-20) Glucose Level 137 mg/dL (70-99) Calcium Level 9.6 mg/dL (8.5-10.1) Total Bilirubin 0.3 mg/dL (0.2-1.0) Aspartate Amino Transf (AST/SGOT) 14 U/L (15-37) Alanine Aminotransferase (ALT/SGPT) 12 U/L (16-63) Alkaline Phosphatase 90 U/L (46-116) C-Reactive Protein, Quantitative 99.8 mg/L (0-3.3) Total Protein 7.1 g/dL (6.4-8.2) Albumin 2.2 g/dL (3.4-5.0) Albumin/Globulin Ratio 0.4 (1.0-1.7) Thyroid Stimulating Hormone (TSH) 3.730 uIU/mL (0.358-3.74) Ethyl Alcohol Level < 10 mg/dL (0-10) Urine Collection Type Unknown Urine Color Yellow Urine Clarity Clear Urine pH 6.0 Urine Specific [place] 1.020 Urine Protein >=300 mg/dL (NEG-TRACE) Urine Glucose (UA) Negative mg/dL (NEG) Urine Ketones (Stick) Negative mg/dL (NEG) Urine Blood Small (NEG) Urine Nitrite Negative (NEG) Urine Bilirubin Negative (NEG) Urine Urobilinogen Dipstick 1.0 mg/dL (0.2 mg/dL) Urine Leukocyte Esterase Moderate (NEG) Urine RBC 0 /HPF (0-2) Urine WBC 20-40 /HPF (0-4) Urine Bacteria Moderate /HPF (0-FEW) Urine Mucus Mod /LPF Urine Sperm Present /HPF Urine Opiates Screen Neg (NEG) Urine Methadone Screen Neg (NEG) Urine Barbiturates Neg (NEG) Urine Phencyclidine Screen Neg (NEG) Urine Amphetamine/Methamphetamine Neg (NEG) Urine Benzodiazepines Screen Neg (NEG) Urine Cocaine Screen Neg (NEG) Urine Cannabinoids Screen Neg (NEG) Urine Ethyl Alcohol Neg (NEG) Nasal Screen MRSA (PCR) Negative (Negative) Glucose (Fingerstick) 180 mg/dL (70-99) Test 05/04/18 09:00 05/04/18 11:51 05/04/18 17:10 05/04/18 18:40 White Blood Count 11.5 x10^3/uL (4.0-11.0) Red Blood Count 3.00 x10^6/uL (4.30-5.70) Hemoglobin 9.1 g/dL (13.0-17.5) Hematocrit 28.3 % (39.0-53.0) Mean Corpuscular Volume 94 fL (79-100) Mean Corpuscular Hemoglobin 30 pg (25-35) Mean Corpuscular Hemoglobin Concent 32 g/dL (31-37) Red Cell Distribution Width 17.3 % (11.5-14.5) Platelet Count 318 x10^3/uL (140-400) Neutrophils (%) (Auto) 61 % (31-73) Lymphocytes (%) (Auto) 18 % (24-48) Monocytes (%) (Auto) 19 % (0-9) Eosinophils (%) (Auto) 1 % (0-3) Basophils (%) (Auto) 0 % (0-3) Neutrophils # (Auto) 7.0 x10^3uL (1.8-7.7) Lymphocytes # (Auto) 2.1 x10^3/uL (1.0-4.8) Monocytes # (Auto) 2.2 x10^3/uL (0.0-1.1) Eosinophils # (Auto) 0.2 x10^3/uL (0.0-0.7) Basophils # (Auto) 0.0 x10^3/uL (0.0-0.2) Sodium Level 139 mmol/L (136-145) Potassium Level 4.8 mmol/L (3.5-5.1) Chloride Level 103 mmol/L (98-107) Carbon Dioxide Level 29 mmol/L (21-32) Anion Gap 7 (6-14) Blood Urea Nitrogen 29 mg/dL (8-26) Creatinine 2.2 mg/dL (0.7-1.3) Estimated GFR (Cockcroft-Gault) 30.6 Glucose Level 208 mg/dL (70-99) Calcium Level 9.1 mg/dL (8.5-10.1) Glucose (Fingerstick) 208 mg/dL (70-99) 252 mg/dL (70-99) 257 mg/dL (70-99) Test 05/04/18 21:05 05/05/18 05:20 05/05/18 08:03 Glucose (Fingerstick) 264 mg/dL (70-99) 195 mg/dL (70-99) White Blood Count 10.0 x10^3/uL (4.0-11.0) Red Blood Count 2.83 x10^6/uL (4.30-5.70) Hemoglobin 8.9 g/dL (13.0-17.5) Hematocrit 26.3 % (39.0-53.0) Mean Corpuscular Volume 93 fL (79-100) Mean Corpuscular Hemoglobin 31 pg (25-35) Mean Corpuscular Hemoglobin Concent 34 g/dL (31-37) Red Cell Distribution Width 17.1 % (11.5-14.5) Platelet Count 330 x10^3/uL (140-400) Neutrophils (%) (Auto) 64 % (31-73) Lymphocytes (%) (Auto) 13 % (24-48) Monocytes (%) (Auto) 20 % (0-9) Eosinophils (%) (Auto) 3 % (0-3) Basophils (%) (Auto) 0 % (0-3) Neutrophils # (Auto) 6.4 x10^3uL (1.8-7.7) Lymphocytes # (Auto) 1.3 x10^3/uL (1.0-4.8) Monocytes # (Auto) 2.0 x10^3/uL (0.0-1.1) Eosinophils # (Auto) 0.3 x10^3/uL (0.0-0.7) Basophils # (Auto) 0.0 x10^3/uL (0.0-0.2) Sodium Level 139 mmol/L (136-145) Potassium Level 4.7 mmol/L (3.5-5.1) Chloride Level 105 mmol/L (98-107) Carbon Dioxide Level 26 mmol/L (21-32) Anion Gap 8 (6-14) Blood Urea Nitrogen 29 mg/dL (8-26) Creatinine 2.5 mg/dL (0.7-1.3) Estimated GFR (Cockcroft-Gault) 26.4 Glucose Level 244 mg/dL (70-99) Calcium Level 9.1 mg/dL (8.5-10.1) Laboratory Tests Test 05/04/18 17:10 05/04/18 18:40 05/04/18 21:05 05/05/18 05:20 Glucose (Fingerstick) 252 mg/dL (70-99) 257 mg/dL (70-99) 264 mg/dL (70-99) White Blood Count 10.0 x10^3/uL (4.0-11.0) Red Blood Count 2.83 x10^6/uL (4.30-5.70) Hemoglobin 8.9 g/dL (13.0-17.5) Hematocrit 26.3 % (39.0-53.0) Mean Corpuscular Volume 93 fL (79-100) Mean Corpuscular Hemoglobin 31 pg (25-35) Mean Corpuscular Hemoglobin Concent 34 g/dL (31-37) Red Cell Distribution Width 17.1 % (11.5-14.5) Platelet Count 330 x10^3/uL (140-400) Neutrophils (%) (Auto) 64 % (31-73) Lymphocytes (%) (Auto) 13 % (24-48) Monocytes (%) (Auto) 20 % (0-9) Eosinophils (%) (Auto) 3 % (0-3) Basophils (%) (Auto) 0 % (0-3) Neutrophils # (Auto) 6.4 x10^3uL (1.8-7.7) Lymphocytes # (Auto) 1.3 x10^3/uL (1.0-4.8) Monocytes # (Auto) 2.0 x10^3/uL (0.0-1.1) Eosinophils # (Auto) 0.3 x10^3/uL (0.0-0.7) Basophils # (Auto) 0.0 x10^3/uL (0.0-0.2) Sodium Level 139 mmol/L (136-145) Potassium Level 4.7 mmol/L (3.5-5.1) Chloride Level 105 mmol/L (98-107) Carbon Dioxide Level 26 mmol/L (21-32) Anion Gap 8 (6-14) Blood Urea Nitrogen 29 mg/dL (8-26) Creatinine 2.5 mg/dL (0.7-1.3) Estimated GFR (Cockcroft-Gault) 26.4 Glucose Level 244 mg/dL (70-99) Calcium Level 9.1 mg/dL (8.5-10.1) Test 05/05/18 08:03 Glucose (Fingerstick) 195 mg/dL (70-99) Microbiology 05/04/18 Blood Culture - Preliminary, Resulted NO GROWTH AFTER 1 DAY Medications Current Medications Fentanyl Citrate (Fentanyl 2ml Vial) 25 mcg PRN Q2HRS PRN IV SEVERE PAIN Last administered on 05/04/18at 14:34; Start 05/03/18 at 20:30; Stop 05/04/18 at 20 :29; Status DC Ondansetron HCl (Zofran) 4 mg 1X ONCE IV Last administered on 05/03/18at 20:27 ; Start 05/03/18 at 20:30; Stop 05/03/18 at 20:31; Status DC Ondansetron HCl (Zofran) 4 mg PRN Q8HRS PRN IV NAUSEA/VOMITING 1ST CHOICE Last administered on 05/03/18at 23:28; Start 05/03/18 at 22:15; Stop 05/04/18 at 22 :14; Status DC Fentanyl Citrate (Fentanyl 2ml Vial) 25 mcg PRN Q2MIN PRN IV SEVERE PAIN; Start 05/03/18 at 22:15; Stop 05/04/18 at 00:00; Status DC Sodium Chloride 1,000 ml @ 150 mls/hr Q6H40M IV Last administered on at 18:50; Start 05/03/18 at 22:30; Stop 05/04/18 at 22:29; Status DC Vancomycin HCl (Vanco Per Pharmacy) 1 each PRN DAILY PRN MC SEE COMMENTS Last administered on 05/04/18at 01:50; Start 05/03/18 at 22:30; Stop 05/04/18 at 10 :05; Status DC Piperacillin Sod/ Tazobactam Sod (Zosyn Per Pharmacy) 1 each PRN DAILY PRN MC SEE COMMENTS; Start 05/03/18 at 22:30 Vancomycin HCl 2 gm/Sodium Chloride 500 ml @ 250 mls/hr 1X ONCE IV Last administered on 05/04/18at 00:24; Start 05/03/18 at 23:00; Stop 05/04/18 at 00 :59; Status DC Piperacillin Sod/ Tazobactam Sod 3.375 gm/Sodium Chloride 50 ml @ 100 mls/hr 1X ONCE IV Last administered on 05/03/18at 23:32; Start 05/03/18 at 22:45; Stop 05/03/18 at 23:14; Status DC Influenza Virus Vaccine (Afluria Trivalent [id number] Syringe) 0.5 ml ONCE ONCE VAX IM ; Start 05/04/18 at 09:00; Stop 05/04/18 at 09:01; Status DC Piperacillin Sod/ Tazobactam Sod 3.375 gm/Sodium Chloride 50 ml @ 100 mls/hr Q6HRS IV Last administered on 05/05/18at 05:18; Start 05/04/18 at 06:00; Stop 05/05/18 at 07:45; Status DC Lactobacillus Rhamnosus (Culturelle) 1 cap BID PO Last administered on at 08:59; Start 05/04/18 at 09:00 Vancomycin HCl 1.5 gm/Sodium Chloride 500 ml @ 250 mls/hr Q24H IV ; Start at 01:00; Stop 05/05/18 at 01:00; Status DC Vancomycin HCl (Vancomycin Trough Level) 1 each 1X ONCE MC ; Start 05/06/18 at 00:30; Stop 05/06/18 at 00:30; Status DC Allopurinol (Zyloprim) 200 mg DAILY PO Last administered on 05/05/18at 08:59; Start 05/04/18 at 10:00 Alprazolam (Xanax) 0.5 mg TID PRN PRN PO ANXIETY / AGITATION Last administered on 05/05/18at 08:58; Start 05/04/18 at 08:45 Aspirin (Ecotrin) 81 mg DAILY08 PO Last administered on 05/05/18at 08:58; Start 05/04/18 at 10:00 Atorvastatin Calcium (Lipitor) 40 mg QHS PO Last administered on 05/04/18at 21: 07; Start 05/04/18 at 21:00 Clonidine HCl (Catapres) 0.1 mg TID PO Last administered on 05/05/18at 08:58; Start 05/04/18 at 10:00 Acetaminophen/ Hydrocodone Bitart (Lortab 5/325) 1 tab PRN Q6HRS PRN PO PAIN MILD Last administered on 05/05/18at 04:41; Start 05/04/18 at 08:45 Temazepam (Restoril) 7.5 mg PRN QHS PRN PO INSOMNIA; Start 05/04/18 at 08:45 Tramadol HCl (Ultram) 50 mg PRN Q6HRS PRN PO MODERATE PAIN; Start 05/04/18 at 08:45; Stop 05/04/18 at 10:13; Status DC Artificial Tears (Artificial Tears) 1 drop PRN Q15MIN PRN OU DRY EYE; Start at 09:15 Insulin Human Lispro (HumaLOG) 10 units TIDWMEALS SQ Last administered on 05/05at 09:09; Start 05/04/18 at 12:00 Insulin Glargine (Lantus) 25 units QHS SQ Last administered on 05/04/18at 21:17 ; Start 05/04/18 at 21:00 Metoprolol Tartrate (Lopressor) 100 mg BID PO Last administered on 05/05/18at 08:58; Start 05/04/18 at 10:00 Paroxetine HCl (Paxil) 40 mg QHS PO Last administered on 05/04/18at 21:07; Start 05/04/18 at 21:00 Gabapentin (Neurontin) 400 mg TID PO Last administered on 05/05/18at 08:58; Start 05/04/18 at 09:30 Saliva Substitute (Biotene Moisturizing Mouth) 2 spray PRN Q15MIN PRN PO DRY MOUTH; Start 05/04/18 at 09:15 Enoxaparin Sodium (Lovenox Per Pharmacy Prophylaxis Dosing) 1 each PRN DAILY PRN MC SEE COMMENTS; Start 05/05/18 at 17:00 Enoxaparin Sodium (Lovenox 40mg Syringe) 40 mg DAILY SQ Last administered on at 08:59; Start 05/04/18 at 10:00 Linezolid (Zyvox) 600 mg BID PO Last administered on 05/05/18at 08:58; Start 05/04/18 at 10:30 Piperacillin Sod/ Tazobactam Sod 2.25 gm/Sodium Chloride 50 ml @ 100 mls/hr Q6HRS IV ; Start 05/05/18 at 12:00 Active Scripts Active Reported Vitamin D (Cholecalciferol (Vitamin D3)) 2,000 Unit Capsule 1 Cap PO DAILY Zinc (Zinc Amino Acid Chelate) 50 Mg Tablet 50 Mg PO Temazepam 7.5 Mg Capsule 7.5 Mg PO Q12 PRN Paroxetine Hcl 40 Mg Tablet 1 Tab PO HS Oxycodone Hcl 5 Mg Tablet 1 Tab PO QID PRN Miconazorb Af (Miconazole Nitrate) 71 Gm Powder 71 Gm TP Multi-Vitamin Daily (Multivitamin) 1 Each Tablet 1 Each PO Metoprolol Tartrate 100 Mg Tablet 1 Tab PO BID Lidocaine 1 Each Adh..patch 1 Each TP Levemir (Insulin Detemir) 100 Unit/1 Ml Vial 25 Unit SQ HS Fish Oil 1,000 Mg Capsule ([place]-3 Fatty Acids/Fish Oil) 1 Each Capsule 1 Each PO Clonidine Hcl 0.1 Mg Tablet 0.1 Mg PO TID Allopurinol 100 Mg Tablet 2 Tab PO DAILY Lortab 5-325 mg Tablet (Hydrocodone/Acetaminophen) 1 Each Tablet 1 Tab PO PRN Q6HRS PRN Lofibra (Fenofibrate) 54 Mg Tablet 54 Mg PO DAILY Alprazolam 0.5 Mg Tablet 1 Tab PO TID PRN PRN Paroxetine Hcl 40 Mg Tablet 1 Tab PO HS Tramadol Hcl 50 Mg Tablet 1 Tab PO PRN Q6HRS Refresh Optive Eye Drops (Carboxymethylcellulos/Glycerin) 15 Ml Drops 1 Drop EACHEYE PRN BID PRN Atorvastatin Calcium 40 Mg Tablet 1 Tab PO DAILY Aspirin Ec (Aspirin) 81 Mg Tablet.dr 1 Tab PO DAILY Novolog Flexpen (Insulin Aspart) 100 Unit/1 Ml Insuln.pen 10 Unit SQ TIDAC Vitals/I & O Vital Sign - Last 24 Hours 05/04/18 05/04/18 05/04/18 05/04/18 14:32 14:34 14:34 16:00 Temp 97.8 97.8 Pulse 54 54 Resp 18 B/P (MAP) 148/45 (79) 148/45 Pulse Ox 94 O2 Delivery Room Air Room Air Room Air 05/04/18 05/04/18 05/04/18 05/04/18 19:00 20:00 21:07 21:11 Temp 96.7 96.7 Pulse 60 60 Resp 18 B/P (MAP) 190/55 (100) 190/55 190/55 Pulse Ox 92 O2 Delivery Room Air Nasal Cannula O2 Flow Rate 2.0 10/16/18 10/16/18 10/17/18 10/17/18 22:18 23:00 03:00 04:41 Temp 96.9 97.1 96.9 97.1 Pulse 62 63 Resp 20 18 16 B/P (MAP) 162/66 (98) 134/53 (80) Pulse Ox 94 93 94 O2 Delivery Nasal Cannula Nasal Cannula Nasal Cannula Nasal Cannula O2 Flow Rate 2.0 2.0 2.0 2.0 05/05/18 05/05/18 05/05/18 05/05/18 06:00 07:00 08:30 08:58 Temp 98.1 98.1 Pulse 61 61 Resp 18 B/P (MAP) 185/66 (105) 185/66 Pulse Ox 94 95 O2 Delivery Nasal Cannula Nasal Cannula Nasal Cannula O2 Flow Rate 2.0 2.0 2.0 05/05/18 08:58 Pulse 61 B/P (MAP) 185/66 Intake and Output 05/04/18 05/04/18 05/05/18 15:01 23:01 07:01 Intake Total 50 ml 1460 ml 1565 ml Balance 50 ml 1460 ml 1565 ml CASTNITZA,NIAL K III DO May 05, 2018 12:03
--- NOTE | 2018-05-05 13:53 | EEG ---
DATE OF SERVICE: 05/04/2018 EEG NUMBER: [id number]. OBJECTIVE: This is a 62-year-old male patient with history of mental status changes and hallucination. EEG was requested to help rule out seizure. METHODS: Twenty electrodes were applied according to the international 10-20 electrode placement system. EKG monitoring, hyperventilation, intermittent photic stimulation, monopolar and bipolar montages are routinely utilized. The record was obtained on a digital system with video monitoring. FINDINGS: 1. Background: The patient was recorded in the awake, drowsy and sleep states. The overall background amplitude is 5-10 microvolts. A posterior dominant rhythm of 8 Hz is observed with superimposed slowing in the theta and delta frequencies, but less than 50% of the time. 2. Abnormalities: No specific epileptiform discharge or electrographic seizure is seen. No diffuse slowing. 3. Activation: Hyperventilation was performed with fair efforts and normal response. Intermittent photic stimulation was performed with photic driving. No specific epileptiform discharge or electrographic seizure induced by hyperventilation or intermittent photic stimulation. IMPRESSION: This EEG falls into the abnormal category of the study for the awake, drowsy, and sleep states. Various superimposed slowing in the theta and delta frequencies, but less than 50% of the time. No focal, lateralizing, specific epileptiform discharge or electrographic seizure is seen. This pattern of EEG may suggest mild encephalopathy. QUENTIN KHAN MD DR: NURIA/clarisa JOB#: [id number] / [id number] BERNADETTE
--- NOTE | 2018-05-05 14:35 | PDOC ---
PROGRESS NOTES Assessment Assessment Metabolic encephalopathy. Hallucinations. UTI. Leukocytosis. Elevated ESR, 103. Elevated CRP 99.8. Left LE cellulitis. Left shoulder fracture, 3 weeks ago. Left distal calcaneus fracture, chronic. Osteomyelitis. Renal failure. CKD. Anemia. Right C7 radiculopathy. CAD s/p CABG. Bipolar disorder. RECOMMENDATIONS/PLAN: Consulted ID. Treat medical diseases. Lab: see orders. OT/PT. Discussed with his at bedside on 05/04/18. EEG on 05/04/18: Mild encephalopathy. HISTORY OF THE PRESENT ILLNESS: 62-y-old male patient with above medical and orthopedic diseases was treated win outside hospital then went rehab. He was noted MS changes and hallucinations. After discontinued narcotics, but he still has hallucination, so he was brought to the ER of [facility]. Past Medical History Past Medical History DE rehabilitation snf patient with history of CVA, left shoulder fracture, left ankle/foot cellulitis Cardiovascular: CAD, CHF, HTN, ND, Hyperlipidemia Pulmonary: No pertinent hx CENTRAL NERVOUS SYSTEM: CVA, Other GI: GERD, Peptic Ulcer disease, Other Heme/Onc: No pertinent hx Hepatobiliary: No pertinent hx Psych: Anxiety Musculoskeletal: Osteoarthritis Rheumatologic: No pertinent hx Infectious disease: No pertinent hx Renal/: Chronic renal insuff Past Surgical History CABG, Total hip replacement, Colon Resection, Other Family History Coronary Artery Disease, Heart Disease Social History Smoke: No ALCOHOL: none Drugs: None ALLERGY: Reviewed. MEDICATIONS: Refer to [facility] REVIEW OF SYSTEMS: Constitutional: No malnutrition, weight loss, cachexia. Head: No traumatic brain or head injury. Skin: No edema, or rash. Ear: No infection. Eyes: No vision loss or color blindness. Nose: No bleeding or purulent discharges. Hearing: No hearing decrease. Cardiac: CAD, s/p CABG, HTN. Pulmonary: No COPD. GI: No GI ulcer, GI bleeding. Urinary/genital: CKD. Endocrinologic: Diabetes Mellitus. Skeletomuscular: Fractures in shoulder and foot. Neurological: see HP. Psychiatric: Denies drug use/abuse. Otherwise, not [id number] review of systems. PHYSICAL EXAMINATION: General appearance is in subacute on chronic distress. HEENT: Normocephalic and nontraumatic. Eyes, nose, ears, and throat are unremarkable. Neck is supple. No lymphadenopathy. No crepitus. Cardiovascular: S1, S2, regular rate and rhythm. Pulmonary: Clear to auscultation bilaterally. Abdomen: Bowel sounds are positive. Abdomen is soft, nontender, and nondistended. Extremities: No rash, lesions, or edema. No restriction of range of motion NEUROLOGICAL EXAMINATION: Awake. Oriented partially to time, knew place and person. PERRL. EOMI. CN: no focal findings. Muscle tone: within normal. Muscle strength: 4+ UE, 4- LE DTR: 2- UE, 0 at knee. Plantar reflex: Flexor response at right side. Not able to access left side since wrapped. Gait: not examined in bed. Sensory exam: no abnormal findings in UE, decreased vibration sense in LE. No cerebellar signs elicited. F-T-N test fine Objective Objective Vital Signs Date Time Temp Pulse Resp B/P (MAP) Pulse Ox O2 Delivery O2 Flow Rate FiO2 05/05/18 12:45 Nasal Cannula 2.0 05/05/18 08:58 61 185/66 05/05/18 07:00 98.1 18 95 98.1 Intake and Output 05/05/18 07:00 Intake Total 3075 ml Balance 3075 ml Intake Oral 985 ml IV Total 2090 ml # Voids 8 Vitals Signs Vitals VS - Last 72 Hours, by Label Date Time Temp Pulse Resp B/P (MAP) Pulse Ox O2 Delivery O2 Flow Rate FiO2 05/05/18 12:45 Nasal Cannula 2.0 05/05/18 11:43 Nasal Cannula 2.0 05/05/18 08:58 61 185/66 05/05/18 08:58 61 185/66 05/05/18 08:30 Nasal Cannula 2.0 05/05/18 07:00 98.1 61 18 185/66 (105) 95 Nasal Cannula 2.0 98.1 05/05/18 06:00 94 05/05/18 04:41 16 94 Nasal Cannula 2.0 05/05/18 03:00 97.1 63 18 134/53 (80) 93 Nasal Cannula 2.0 97.1 05/04/18 23:00 96.9 62 20 162/66 (98) 94 Nasal Cannula 2.0 96.9 05/04/18 22:18 Nasal Cannula 2.0 05/04/18 21:11 60 190/55 10/16/18 21:07 190/55 05/04/18 20:00 Nasal Cannula 2.0 05/04/18 19:00 96.7 60 18 190/55 (100) 92 Room Air 96.7 05/04/18 16:00 Room Air 05/04/18 14:34 54 148/45 05/04/18 14:34 Room Air 05/04/18 14:32 97.8 54 18 148/45 (79) 94 Room Air 97.8 05/04/18 10:42 99.0 64 18 173/56 (95) 94 Nasal Cannula 2.0 99.0 05/04/18 10:29 64 173/56 05/04/18 10:28 64 173/56 05/04/18 10:28 Nasal Cannula 2.0 05/04/18 09:00 2.0 05/04/18 08:21 Nasal Cannula 2.0 05/04/18 07:30 Nasal Cannula 2.0 05/04/18 07:00 98.4 64 16 157/54 (88) 94 Nasal Cannula 2.0 98.4 Laboratory Laboratory Laboratory Tests Test 05/04/18 17:10 05/04/18 18:40 05/04/18 21:05 05/05/18 05:20 Glucose (Fingerstick) 252 mg/dL (70-99) 257 mg/dL (70-99) 264 mg/dL (70-99) White Blood Count 10.0 x10^3/uL (4.0-11.0) Red Blood Count 2.83 x10^6/uL (4.30-5.70) Hemoglobin 8.9 g/dL (13.0-17.5) Hematocrit 26.3 % (39.0-53.0) Mean Corpuscular Volume 93 fL (79-100) Mean Corpuscular Hemoglobin 31 pg (25-35) Mean Corpuscular Hemoglobin Concent 34 g/dL (31-37) Red Cell Distribution Width 17.1 % (11.5-14.5) Platelet Count 330 x10^3/uL (140-400) Neutrophils (%) (Auto) 64 % (31-73) Lymphocytes (%) (Auto) 13 % (24-48) Monocytes (%) (Auto) 20 % (0-9) Eosinophils (%) (Auto) 3 % (0-3) Basophils (%) (Auto) 0 % (0-3) Neutrophils # (Auto) 6.4 x10^3uL (1.8-7.7) Lymphocytes # (Auto) 1.3 x10^3/uL (1.0-4.8) Monocytes # (Auto) 2.0 x10^3/uL (0.0-1.1) Eosinophils # (Auto) 0.3 x10^3/uL (0.0-0.7) Basophils # (Auto) 0.0 x10^3/uL (0.0-0.2) Sodium Level 139 mmol/L (136-145) Potassium Level 4.7 mmol/L (3.5-5.1) Chloride Level 105 mmol/L (98-107) Carbon Dioxide Level 26 mmol/L (21-32) Anion Gap 8 (6-14) Blood Urea Nitrogen 29 mg/dL (8-26) Creatinine 2.5 mg/dL (0.7-1.3) Estimated GFR (Cockcroft-Gault) 26.4 Glucose Level 244 mg/dL (70-99) Calcium Level 9.1 mg/dL (8.5-10.1) Test 05/05/18 08:03 05/05/18 11:47 Glucose (Fingerstick) 195 mg/dL (70-99) 169 mg/dL (70-99) Microbiology 05/04/18 Blood Culture - Preliminary, Resulted NO GROWTH AFTER 1 DAY Medication Medications Current Medications Atorvastatin Calcium (Lipitor) 40 mg QHS PO Last administered on 05/04/18at 21: 07; Start 05/04/18 at 21:00 Enoxaparin Sodium (Lovenox Per Pharmacy Prophylaxis Dosing) 1 each PRN DAILY PRN MC SEE COMMENTS; Start 05/05/18 at 17:00 Insulin Glargine (Lantus) 25 units QHS SQ Last administered on 05/04/18at 21:17 ; Start 05/04/18 at 21:00 Paroxetine HCl (Paxil) 40 mg QHS PO Last administered on 05/04/18at 21:07; Start 05/04/18 at 21:00 Piperacillin Sod/ Tazobactam Sod 2.25 gm/Sodium Chloride 50 ml @ 100 mls/hr Q6HRS IV Last administered on 05/05/18at 11:43; Start 05/05/18 at 12:00 Vancomycin HCl (Vancomycin Trough Level) 1 each 1X ONCE MC ; Start 05/06/18 at 00:30; Stop 05/06/18 at 00:30; Status DC Vancomycin HCl 1.5 gm/Sodium Chloride 500 ml @ 250 mls/hr Q24H IV ; Start at 01:00; Stop 05/05/18 at 01:00; Status DC Comment Review of Relevant I have reviewed the following items rebeka (where applicable) has been applied. QUENTIN KHAN MD May 05, 2018 14:35
[2018-05-05] MEDS: PARoxetine 20 MG TABLET PO SCH (21:03)
[2018-05-05] MEDS: ATORVASTATIN CALCIUM 40 MG TABLET. PO SCH (21:03)
[2018-05-05] MEDS: INSULIN GLARGINE 300 UNITS/3 ML INSULN.PEN. SQ SCH (21:09)
[2018-05-05] MEDS ORDERED: METOPROLOL TART IMMED RELEASE 50 MG TABLET. PO ONE (23:55)
[2018-05-06] MEDS: cloNIDine HCL 0.1 MG TABLET PO SCH ×4 (00:01→20:41)
[2018-05-06 03:00] VITALS: BP 204/74
[2018-05-06] MEDS: HYDROcodone/APAP 5/325MG 1 TAB TABLET PO PRN ×3 (05:11→23:23)
[2018-05-06] MEDS: PIPERACILLIN/TAZOBACTAM 2.25 GM in IV NORMAL SALINE 50ML 50 ML IV SCH ×4 (05:11→23:23)
[2018-05-06] MEDS: ISOSORBIDE DINITRATE 10 MG TABLET. PO PRN ×2 (05:12→23:34)
[2018-05-06 07:00] VITALS: BP 177/68
--- NOTE | 2018-05-06 07:53 | PDOC ---
Infectious Disease Note Subjective Subjective Additional info from [facility]. [facility] cult[facility] grew PSA/Enterococcus faecalis/Prevotella/STCN/Diptheroids and was on Zosyn. Admitted to [facility] in September and underwent stenting to LLE and underwent L heel I and D 10/13/[address] Jaime. - no positive cults. Treated initially with zyvox and Meropenem and cont the Meropenem for 6 weeks at [facility] and then unknown oral abx for 6 weeks. Underwent 30 HBO treatments. Wound cult 12/30/17 - Corynebacterium. Was discharged from wound care 02/[address] Sneed Doing ok this am. New medicine made his LLE pain go away No F/C/S/N/V/D/Rash/SOA. + appetite ROS ROS o/w neg Vital Sign Vital Signs Vital Signs Date Time Temp Pulse Resp B/P (MAP) Pulse Ox O2 Delivery O2 Flow Rate FiO2 05/06/18 06:10 95 Nasal Cannula 2.0 05/06/18 05:12 58 204/74 05/06/18 03:00 98.9 20 98.9 Physical Exam PHYSICAL EXAM CONSTITUTIONAL: Sleeping, awakens HEENT: He has normal conjunctivae. Oral cavity, pharynx is dry. NECK: Supple, no JVD. LUNGS: Clear to auscultation. HEART: S1, S2. ABDOMEN: Obese, soft, nontender, no guarding. EXTREMITIES: Without clubbing or cyanosis. His left ankle has trace to 1+ edema. There is no bruising associated with the ankle. He has a well-healed scar in the posterior aspect. There is no gross erythema or warmth, but is mildly tender left shoulder, again has some tenderness. NEUROLOGICAL: Odd affect SKIN: Warm to touch without signs of rash. Labs Lab Laboratory Tests Test 05/05/18 08:03 05/05/18 11:47 05/05/18 14:49 05/05/18 16:43 Glucose (Fingerstick) 195 mg/dL (70-99) 169 mg/dL (70-99) 110 mg/dL (70-99) 141 mg/dL (70-99) Test 05/05/18 21:07 Glucose (Fingerstick) 164 mg/dL (70-99) Micro MRI IMPRESSION: 1. Well-defined chronic appearing defect at the posteroinferior calcaneus, could be due to surgical resection or chronic osteomyelitis. 2. Fracture of the distal calcaneus, does not appear acute by MRI imaging. Fracture could be related to diabetic neuropathy if there is no history of appropriate trauma. Pathologic fracture due to calcaneal osteomyelitis is also possible. Heterogeneous calcaneal marrow signal marginating this fracture, is likely related to the fracture itself, although osteomyelitis is difficult to exclude. 3. There is a subtalar and tibiotalar joint effusion of uncertain sterility. Could be sterile fluid or infected content. 4. Moderate insertional Achilles tendinosis. 5. Patchy bone marrow edema at the talus, distal tibia and distal fibula, likely degenerative or reactive. #6 subluxation of the posterior subtalar joint. Objective Assessment Leukocytosis - better - may be sec to UTI Left ankle fracture - h/o Osteomyelitis - appears chronic UTI -POA - strep in urine could be enterococcus Encephalopathy - improving ALISON on CKD worse HTN LUE fracture - chronic Bipolar DM Plan Plan of Care Will discont Zyvox as he BP his elevated although it was elevated at admit and it was started 05/04. he is not anxious and HR normal Cont zosyn adjusted dose. Will treat for UTI as ankle changes appear chronic. F/u urine cult Appreciate Ortho eval - D/w Dr. Doe 05/05 F/u labs in am and cults MARLENE CARLOS MD May 06, 2018 07:53
[2018-05-06] MEDS: GABAPENTIN 400 MG CAPSULE. PO SCH (08:11)
[2018-05-06] MEDS: ASPIRIN ENTERIC COATED 81 MG TABLET.DR. PO SCH (08:12)
[2018-05-06] MEDS: ALPRAZolam 0.5 MG TABLET PO PRN ×2 (08:12→13:55)
[2018-05-06] MEDS: LACTOBACILLUS RHAMNOSUS GG 1 CAPSULE. PO SCH ×2 (08:12→20:40)
[2018-05-06] MEDS: ENOXAPARIN 40 MG/0.4 ML SYRINGE. SQ SCH (08:13)
[2018-05-06] MEDS: ALLOPURINOL 100 MG TABLET. PO SCH (08:13)
[2018-05-06] MEDS: INSULIN LISPRO 300 UNITS/3 ML INSULN.PEN. SQ SCH ×3 (08:20→17:00)
[2018-05-06] MEDS: METOPROLOL TART IMMED RELEASE 50 MG TABLET. PO SCH ×2 (08:22→20:41)
[2018-05-06 08:29] LABS: CREATININE 2.2 mg/dL (0.7-1.3); GFR 30.6; POTASSIUM 4.3 mmol/L (3.5-5.1)
[2018-05-06 11:00] VITALS: BP 111/49
[2018-05-06] MEDS ORDERED: CHOLECALCIFEROL (VITAMIN D3) 1,000 UNIT TABLET PO SCH (12:00)
[2018-05-06] MEDS ORDERED: oxyCODONE IR 5 MG TABLET PO ONE (12:00)
[2018-05-06] MEDS: GABAPENTIN 100 MG CAPSULE. PO SCH ×2 (13:54→20:40)
[2018-05-06] MEDS ORDERED: ERGOCALCIFEROL (VITAMIN D2) 50,000 UNIT CAPSULE. PO SCH (14:00)
--- NOTE | 2018-05-06 14:10 | PDOC ---
PROGRESS NOTES Chief Complaint Chief Complaint Leukocytosis Left ankle fracture UTI Encephalopathy, acute ALISON on CKD 3 - vasomotor LUE fracture Bipolar DM 2 History of Present Illness History of Present Illness has been confused, will taper gabapentin back down, no pain now cont abx PT and OT decrease metoprolol, check orthostatics ID following Labs Home meds Vitals Vitals Vital Signs Date Time Temp Pulse Resp B/P (MAP) Pulse Ox O2 Delivery O2 Flow Rate FiO2 05/06/18 13:53 55 154/60 05/06/18 11:50 Room Air 05/06/18 11:00 97.4 18 96 97.4 05/06/18 06:10 2.0 Physical Exam Physical Exam CONSTITUTIONAL: Sleeping, awakens HEENT: He has normal conjunctivae. Oral cavity, pharynx is dry. NECK: Supple, no JVD. LUNGS: Clear to auscultation. HEART: S1, S2. ABDOMEN: Obese, soft, nontender, no guarding. EXTREMITIES: Without clubbing or cyanosis. His left ankle has trace to 1+ edema. There is no bruising associated with the ankle. He has a well-healed scar in the posterior aspect. There is no gross erythema or warmth, but is mildly tender left shoulder, again has some tenderness. NEUROLOGICAL: Odd affect SKIN: Warm to touch without signs of rash. General: Alert, Oriented X3, Cooperative, mild distress Lungs: Clear Abdomen: Normal bowel sounds, Soft Extremities: No clubbing, No cyanosis, Normal pulses, Other (left foot swollen , not tender, chronic neuropathic pain) Skin: No rashes, No significant lesion Labs LABS Laboratory Tests Test 05/05/18 14:49 05/05/18 16:43 05/05/18 21:07 05/06/18 07:23 Glucose (Fingerstick) 110 mg/dL (70-99) 141 mg/dL (70-99) 164 mg/dL (70-99) 131 mg/dL (70-99) Test 05/06/18 07:50 05/06/18 10:54 Sodium Level 143 mmol/L (136-145) Potassium Level 4.3 mmol/L (3.5-5.1) Chloride Level 106 mmol/L (98-107) Carbon Dioxide Level 27 mmol/L (21-32) Anion Gap 10 (6-14) Blood Urea Nitrogen 22 mg/dL (8-26) Creatinine 2.2 mg/dL (0.7-1.3) Estimated GFR (Cockcroft-Gault) 30.6 Glucose Level 151 mg/dL (70-99) Calcium Level 9.0 mg/dL (8.5-10.1) Glucose (Fingerstick) 135 mg/dL (70-99) Comment Review of Relevant I have reviewed the following items rebeka (where applicable) has been applied. Labs Laboratory Tests Test 05/04/18 17:10 05/04/18 18:40 05/04/18 21:05 05/05/18 05:20 Glucose (Fingerstick) 252 mg/dL (70-99) 257 mg/dL (70-99) 264 mg/dL (70-99) White Blood Count 10.0 x10^3/uL (4.0-11.0) Red Blood Count 2.83 x10^6/uL (4.30-5.70) Hemoglobin 8.9 g/dL (13.0-17.5) Hematocrit 26.3 % (39.0-53.0) Mean Corpuscular Volume 93 fL (79-100) Mean Corpuscular Hemoglobin 31 pg (25-35) Mean Corpuscular Hemoglobin Concent 34 g/dL (31-37) Red Cell Distribution Width 17.1 % (11.5-14.5) Platelet Count 330 x10^3/uL (140-400) Neutrophils (%) (Auto) 64 % (31-73) Lymphocytes (%) (Auto) 13 % (24-48) Monocytes (%) (Auto) 20 % (0-9) Eosinophils (%) (Auto) 3 % (0-3) Basophils (%) (Auto) 0 % (0-3) Neutrophils # (Auto) 6.4 x10^3uL (1.8-7.7) Lymphocytes # (Auto) 1.3 x10^3/uL (1.0-4.8) Monocytes # (Auto) 2.0 x10^3/uL (0.0-1.1) Eosinophils # (Auto) 0.3 x10^3/uL (0.0-0.7) Basophils # (Auto) 0.0 x10^3/uL (0.0-0.2) Sodium Level 139 mmol/L (136-145) Potassium Level 4.7 mmol/L (3.5-5.1) Chloride Level 105 mmol/L (98-107) Carbon Dioxide Level 26 mmol/L (21-32) Anion Gap 8 (6-14) Blood Urea Nitrogen 29 mg/dL (8-26) Creatinine 2.5 mg/dL (0.7-1.3) Estimated GFR (Cockcroft-Gault) 26.4 Glucose Level 244 mg/dL (70-99) Calcium Level 9.1 mg/dL (8.5-10.1) Vitamin B12 Level 430 pg/mL (247-911) 25-Hydroxy Vitamin D Total 24.6 ng/mL (30-100) Test 05/05/18 08:03 05/05/18 11:47 05/05/18 14:49 05/05/18 16:43 Glucose (Fingerstick) 195 mg/dL (70-99) 169 mg/dL (70-99) 110 mg/dL (70-99) 141 mg/dL (70-99) Test 05/05/18 21:07 05/06/18 07:23 05/06/18 07:50 05/06/18 10:54 Glucose (Fingerstick) 164 mg/dL (70-99) 131 mg/dL (70-99) 135 mg/dL (70-99) Sodium Level 143 mmol/L (136-145) Potassium Level 4.3 mmol/L (3.5-5.1) Chloride Level 106 mmol/L (98-107) Carbon Dioxide Level 27 mmol/L (21-32) Anion Gap 10 (6-14) Blood Urea Nitrogen 22 mg/dL (8-26) Creatinine 2.2 mg/dL (0.7-1.3) Estimated GFR (Cockcroft-Gault) 30.6 Glucose Level 151 mg/dL (70-99) Calcium Level 9.0 mg/dL (8.5-10.1) Laboratory Tests Test 05/05/18 14:49 05/05/18 16:43 05/05/18 21:07 05/06/18 07:23 Glucose (Fingerstick) 110 mg/dL (70-99) 141 mg/dL (70-99) 164 mg/dL (70-99) 131 mg/dL (70-99) Test 05/06/18 07:50 05/06/18 10:54 Sodium Level 143 mmol/L (136-145) Potassium Level 4.3 mmol/L (3.5-5.1) Chloride Level 106 mmol/L (98-107) Carbon Dioxide Level 27 mmol/L (21-32) Anion Gap 10 (6-14) Blood Urea Nitrogen 22 mg/dL (8-26) Creatinine 2.2 mg/dL (0.7-1.3) Estimated GFR (Cockcroft-Gault) 30.6 Glucose Level 151 mg/dL (70-99) Calcium Level 9.0 mg/dL (8.5-10.1) Glucose (Fingerstick) 135 mg/dL (70-99) Microbiology 05/04/18 Blood Culture - Preliminary, Resulted NO GROWTH AFTER 2 DAYS 05/03/18 Urine Culture - Preliminary, Resulted 05/03/18 Urine Culture Result 1 (ANDREIA) - Preliminary, Resulted Medications Current Medications Fentanyl Citrate (Fentanyl 2ml Vial) 25 mcg PRN Q2HRS PRN IV SEVERE PAIN Last administered on 05/04/18at 14:34; Start 05/03/18 at 20:30; Stop 05/04/18 at 20 :29; Status DC Ondansetron HCl (Zofran) 4 mg 1X ONCE IV Last administered on 05/03/18at 20:27 ; Start 05/03/18 at 20:30; Stop 05/03/18 at 20:31; Status DC Ondansetron HCl (Zofran) 4 mg PRN Q8HRS PRN IV NAUSEA/VOMITING 1ST CHOICE Last administered on 05/03/18at 23:28; Start 05/03/18 at 22:15; Stop 05/04/18 at 22 :14; Status DC Fentanyl Citrate (Fentanyl 2ml Vial) 25 mcg PRN Q2MIN PRN IV SEVERE PAIN; Start 05/03/18 at 22:15; Stop 05/04/18 at 00:00; Status DC Sodium Chloride 1,000 ml @ 150 mls/hr Q6H40M IV Last administered on at 18:50; Start 05/03/18 at 22:30; Stop 05/04/18 at 22:29; Status DC Vancomycin HCl (Vanco Per Pharmacy) 1 each PRN DAILY PRN MC SEE COMMENTS Last administered on 05/04/18at 01:50; Start 05/03/18 at 22:30; Stop 05/04/18 at 10 :05; Status DC Piperacillin Sod/ Tazobactam Sod (Zosyn Per Pharmacy) 1 each PRN DAILY PRN MC SEE COMMENTS; Start 05/03/18 at 22:30 Vancomycin HCl 2 gm/Sodium Chloride 500 ml @ 250 mls/hr 1X ONCE IV Last administered on 05/04/18at 00:24; Start 05/03/18 at 23:00; Stop 05/04/18 at 00 :59; Status DC Piperacillin Sod/ Tazobactam Sod 3.375 gm/Sodium Chloride 50 ml @ 100 mls/hr 1X ONCE IV Last administered on 05/03/18at 23:32; Start 05/03/18 at 22:45; Stop 05/03/18 at 23:14; Status DC Influenza Virus Vaccine (Afluria Trivalent [id number] Syringe) 0.5 ml ONCE ONCE VAX IM ; Start 05/04/18 at 09:00; Stop 05/04/18 at 09:01; Status DC Piperacillin Sod/ Tazobactam Sod 3.375 gm/Sodium Chloride 50 ml @ 100 mls/hr Q6HRS IV Last administered on 05/05/18at 05:18; Start 05/04/18 at 06:00; Stop 05/05/18 at 07:45; Status DC Lactobacillus Rhamnosus (Culturelle) 1 cap BID PO Last administered on at 08:12; Start 05/04/18 at 09:00 Vancomycin HCl 1.5 gm/Sodium Chloride 500 ml @ 250 mls/hr Q24H IV ; Start at 01:00; Stop 05/05/18 at 01:00; Status DC Vancomycin HCl (Vancomycin Trough Level) 1 each 1X ONCE MC ; Start 05/06/18 at 00:30; Stop 05/06/18 at 00:30; Status DC Allopurinol (Zyloprim) 200 mg DAILY PO Last administered on 05/06/18at 08:13; Start 05/04/18 at 10:00 Alprazolam (Xanax) 0.5 mg TID PRN PRN PO ANXIETY / AGITATION Last administered on 05/06/18at 13:55; Start 05/04/18 at 08:45 Aspirin (Ecotrin) 81 mg DAILY08 PO Last administered on 05/06/18at 08:12; Start 05/04/18 at 10:00 Atorvastatin Calcium (Lipitor) 40 mg QHS PO Last administered on 05/05/18at 21: 03; Start 05/04/18 at 21:00 Clonidine HCl (Catapres) 0.1 mg TID PO Last administered on 05/06/18at 13:53; Start 05/04/18 at 10:00 Acetaminophen/ Hydrocodone Bitart (Lortab 5/325) 1 tab PRN Q6HRS PRN PO PAIN MILD Last administered on 05/06/18at 05:11; Start 05/04/18 at 08:45; Stop at 11:23; Status DC Temazepam (Restoril) 7.5 mg PRN QHS PRN PO INSOMNIA; Start 05/04/18 at 08:45 Tramadol HCl (Ultram) 50 mg PRN Q6HRS PRN PO MODERATE PAIN; Start 05/04/18 at 08:45; Stop 05/04/18 at 10:13; Status DC Artificial Tears (Artificial Tears) 1 drop PRN Q15MIN PRN OU DRY EYE; Start at 09:15 Insulin Human Lispro (HumaLOG) 10 units TIDWMEALS SQ Last administered on 05/06at 11:52; Start 05/04/18 at 12:00 Insulin Glargine (Lantus) 25 units QHS SQ Last administered on 05/05/18at 21:09 ; Start 05/04/18 at 21:00 Metoprolol Tartrate (Lopressor) 100 mg BID PO Last administered on 05/05/18at 08:58; Start 05/04/18 at 10:00 Paroxetine HCl (Paxil) 40 mg QHS PO Last administered on 05/05/18at 21:03; Start 05/04/18 at 21:00 Gabapentin (Neurontin) 400 mg TID PO Last administered on 05/06/18at 08:11; Start 05/04/18 at 09:30; Stop 05/06/18 at 12:44; Status DC Saliva Substitute (Biotene Moisturizing Mouth) 2 spray PRN Q15MIN PRN PO DRY MOUTH; Start 05/04/18 at 09:15 Enoxaparin Sodium (Lovenox Per Pharmacy Prophylaxis Dosing) 1 each PRN DAILY PRN MC SEE COMMENTS; Start 05/05/18 at 17:00 Enoxaparin Sodium (Lovenox 40mg Syringe) 40 mg DAILY SQ Last administered on at 08:13; Start 05/04/18 at 10:00 Linezolid (Zyvox) 600 mg BID PO Last administered on 05/05/18at 21:04; Start 05/04/18 at 10:30; Stop 05/06/18 at 07:52; Status DC Piperacillin Sod/ Tazobactam Sod 2.25 gm/Sodium Chloride 50 ml @ 100 mls/hr Q6HRS IV Last administered on 05/06/18at 11:50; Start 05/05/18 at 12:00 Metoprolol Tartrate (Lopressor) 50 mg 1X ONCE PO Last administered on at 00:00; Start 05/05/18 at 23:55; Stop 05/05/18 at 23:56; Status DC Isosorbide Dinitrate (Isordil) 10 mg PRN TID PRN PO HYPERTENSION, SEE COMMENTS Last administered on 05/06/18at 05:12; Start 05/05/18 at 23:45 Vitamin D (Vitamin D3) 2,000 unit DAILY PO Last administered on 05/06/18at 11: 49; Start 05/06/18 at 12:00; Stop 05/06/18 at 12:59; Status DC Acetaminophen/ Hydrocodone Bitart (Lortab 5/325) 1 tab PRN Q4HRS PRN PO PAIN; Start 05/06/18 at 11:30 Oxycodone HCl (Roxicodone) 10 mg 1X ONCE PO Last administered on 05/06/18at 11 :50; Start 05/06/18 at 12:00; Stop 05/06/18 at 12:01; Status DC Gabapentin (Neurontin) 200 mg TID PO Last administered on 05/06/18at 13:54; Start 05/06/18 at 14:00 Ergocalciferol (Vitamin D2) 50,000 unit WEEKLY PO Last administered on at 13:54; Start 05/06/18 at 14:00 Active Scripts Active Reported Vitamin D (Cholecalciferol (Vitamin D3)) 2,000 Unit Capsule 1 Cap PO DAILY Zinc (Zinc Amino Acid Chelate) 50 Mg Tablet 50 Mg PO Temazepam 7.5 Mg Capsule 7.5 Mg PO Q12 PRN Paroxetine Hcl 40 Mg Tablet 1 Tab PO HS Oxycodone Hcl 5 Mg Tablet 1 Tab PO QID PRN Miconazorb Af (Miconazole Nitrate) 71 Gm Powder 71 Gm TP Multi-Vitamin Daily (Multivitamin) 1 Each Tablet 1 Each PO Metoprolol Tartrate 100 Mg Tablet 1 Tab PO BID Lidocaine 1 Each Adh..patch 1 Each TP Levemir (Insulin Detemir) 100 Unit/1 Ml Vial 25 Unit SQ HS Fish Oil 1,000 Mg Capsule (Prichard-3 Fatty Acids/Fish Oil) 1 Each Capsule 1 Each PO Clonidine Hcl 0.1 Mg Tablet 0.1 Mg PO TID Allopurinol 100 Mg Tablet 2 Tab PO DAILY Lortab 5-325 mg Tablet (Hydrocodone/Acetaminophen) 1 Each Tablet 1 Tab PO PRN Q6HRS PRN Lofibra (Fenofibrate) 54 Mg Tablet 54 Mg PO DAILY Alprazolam 0.5 Mg Tablet 1 Tab PO TID PRN PRN Paroxetine Hcl 40 Mg Tablet 1 Tab PO HS Tramadol Hcl 50 Mg Tablet 1 Tab PO PRN Q6HRS Refresh Optive Eye Drops (Carboxymethylcellulos/Glycerin) 15 Ml Drops 1 Drop EACHEYE PRN BID PRN Atorvastatin Calcium 40 Mg Tablet 1 Tab PO DAILY Aspirin Ec (Aspirin) 81 Mg Tablet.dr 1 Tab PO DAILY Novolog Flexpen (Insulin Aspart) 100 Unit/1 Ml Insuln.pen 10 Unit SQ TIDAC Vitals/I & O Vital Sign - Last 24 Hours 05/05/18 05/05/18 05/05/18 05/05/18 14:50 14:52 14:55 15:00 Temp 97.6 97.6 Pulse 49 48 55 51 Resp 16 B/P (MAP) 94/51 (65) 100/47 (64) 95/49 (64) 105/51 (69) Pulse Ox 97 O2 Delivery Room Air 05/05/18 05/05/18 05/05/18 05/05/18 18:21 19:00 20:00 21:00 Temp 98.7 98.7 Pulse 61 51 Resp 20 B/P (MAP) 156/55 (88) 105/51 Pulse Ox 98 O2 Delivery Room Air Room Air Nasal Cannula O2 Flow Rate 2.0 05/05/18 05/06/18 05/06/18 05/06/18 23:00 00:00 00:01 03:00 Temp 98.1 98.9 98.1 98.9 Pulse 56 56 56 58 Resp 20 20 B/P (MAP) 193/73 (113) 193/73 193/73 204/74 (117) Pulse Ox 97 95 O2 Delivery Room Air Room Air 05/06/18 05/06/18 05/06/18 05/06/18 05:11 05:12 06:10 07:00 Temp 97.5 97.5 Pulse 58 57 Resp 17 B/P (MAP) 204/74 177/68 (104) Pulse Ox 95 95 92 O2 Delivery Nasal Cannula Nasal Cannula Room Air O2 Flow Rate 2.0 2.0 05/06/18 05/06/18 05/06/18 05/06/18 08:00 08:12 08:22 11:00 Temp 97.4 97.4 Pulse 57 57 56 Resp 18 B/P (MAP) 177/68 177/68 111/49 (69) Pulse Ox 96 O2 Delivery Room Air Room Air 05/06/18 05/06/18 11:50 13:53 Pulse 55 B/P (MAP) 154/60 O2 Delivery Room Air Intake and Output 05/05/18 05/05/18 05/06/18 15:00 23:00 07:00 Intake Total 50 ml 50 ml 100 ml Output Total 250 ml Balance 50 ml 50 ml -150 ml PHU MESA MD May 06, 2018 14:10
[2018-05-06 15:00] VITALS: BP 171/66
--- NOTE | 2018-05-06 16:17 | PDOC2 ---
CONSULT Date of Consult Date of Consult DATE: 05/06/18 TIME: 15:46 Reason for Consult Reason for Consult: CKD 3- not responding to IVF Identification/Chief Complaint Chief Complaint None today Source Source: Chart review, Patient History of Present Illness Reason for Visit: Pt is a 62-year-old CM ,prison resident He has fallen and suffered a fracture to his left upper extremity within the last month, He states that several days ago, he got out of bed, to go to the restroom and states that his left ankle gave out. He was brought to [facility] ER on 05/03/2018 secondary to mental status change with hallucinations. Ankle x-ray revealed fragmentation of fracture of the calcaneus. He has been afebrile Denies cough or chest pain. No nausea, vomiting, diarrhea. Has urinary retention in the past . Currently denies any symptoms of UTI . He is Incontinent and reports and feels uop has decreased Reports PO intake is Good. He was on IVF, Off now . 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 Past Medical History Cardiovascular: CAD, CHF, HTN, [place], Hyperlipidemia Pulmonary: No pertinent hx CENTRAL NERVOUS SYSTEM: CVA, Other GI: GERD, Peptic Ulcer disease, Other Heme/Onc: No pertinent hx Hepatobiliary: No pertinent hx Psych: Anxiety Musculoskeletal: Osteoarthritis Rheumatologic: No pertinent hx Infectious disease: No pertinent hx Renal/: Chronic renal insuff Past Surgical History Past Surgical History: CABG, Total hip replacement, Colon Resection, Other Family History Family History: Coronary Artery Disease, Heart Disease Social History Social History: Parent No ALCOHOL: none Drugs: None Lives: Alone Current Medications Current Medications Current Medications Fentanyl Citrate (Fentanyl 2ml Vial) 25 mcg PRN Q2HRS PRN IV SEVERE PAIN Last administered on 05/04/18at 14:34; Start 05/03/18 at 20:30; Stop 05/04/18 at 20 :29; Status DC Ondansetron HCl (Zofran) 4 mg 1X ONCE IV Last administered on 05/03/18at 20:27 ; Start 05/03/18 at 20:30; Stop 05/03/18 at 20:31; Status DC Ondansetron HCl (Zofran) 4 mg PRN Q8HRS PRN IV NAUSEA/VOMITING 1ST CHOICE Last administered on 05/03/18at 23:28; Start 05/03/18 at 22:15; Stop 05/04/18 at 22 :14; Status DC Fentanyl Citrate (Fentanyl 2ml Vial) 25 mcg PRN Q2MIN PRN IV SEVERE PAIN; Start 05/03/18 at 22:15; Stop 05/04/18 at 00:00; Status DC Sodium Chloride 1,000 ml @ 150 mls/hr Q6H40M IV Last administered on at 18:50; Start 05/03/18 at 22:30; Stop 05/04/18 at 22:29; Status DC Vancomycin HCl (Vanco Per Pharmacy) 1 each PRN DAILY PRN MC SEE COMMENTS Last administered on 05/04/18at 01:50; Start 05/03/18 at 22:30; Stop 05/04/18 at 10 :05; Status DC Piperacillin Sod/ Tazobactam Sod (Zosyn Per Pharmacy) 1 each PRN DAILY PRN MC SEE COMMENTS; Start 05/03/18 at 22:30 Vancomycin HCl 2 gm/Sodium Chloride 500 ml @ 250 mls/hr 1X ONCE IV Last administered on 05/04/18at 00:24; Start 05/03/18 at 23:00; Stop 05/04/18 at 00 :59; Status DC Piperacillin Sod/ Tazobactam Sod 3.375 gm/Sodium Chloride 50 ml @ 100 mls/hr 1X ONCE IV Last administered on 05/03/18at 23:32; Start 05/03/18 at 22:45; Stop 05/03/18 at 23:14; Status DC Influenza Virus Vaccine (Afluria Trivalent [id number] Syringe) 0.5 ml ONCE ONCE VAX IM ; Start 05/04/18 at 09:00; Stop 05/04/18 at 09:01; Status DC Piperacillin Sod/ Tazobactam Sod 3.375 gm/Sodium Chloride 50 ml @ 100 mls/hr Q6HRS IV Last administered on 05/05/18at 05:18; Start 05/04/18 at 06:00; Stop 05/05/18 at 07:45; Status DC Lactobacillus Rhamnosus (Culturelle) 1 cap BID PO Last administered on at 08:12; Start 05/04/18 at 09:00 Vancomycin HCl 1.5 gm/Sodium Chloride 500 ml @ 250 mls/hr Q24H IV ; Start at 01:00; Stop 05/05/18 at 01:00; Status DC Vancomycin HCl (Vancomycin Trough Level) 1 each 1X ONCE MC ; Start 05/06/18 at 00:30; Stop 05/06/18 at 00:30; Status DC Allopurinol (Zyloprim) 200 mg DAILY PO Last administered on 05/06/18at 08:13; Start 05/04/18 at 10:00 Alprazolam (Xanax) 0.5 mg TID PRN PRN PO ANXIETY / AGITATION Last administered on 05/06/18at 13:55; Start 05/04/18 at 08:45 Aspirin (Ecotrin) 81 mg DAILY08 PO Last administered on 05/06/18at 08:12; Start 05/04/18 at 10:00 Atorvastatin Calcium (Lipitor) 40 mg QHS PO Last administered on 05/05/18at 21: 03; Start 05/04/18 at 21:00 Clonidine HCl (Catapres) 0.1 mg TID PO Last administered on 05/06/18at 13:53; Start 05/04/18 at 10:00 Acetaminophen/ Hydrocodone Bitart (Lortab 5/325) 1 tab PRN Q6HRS PRN PO PAIN MILD Last administered on 05/06/18at 05:11; Start 05/04/18 at 08:45; Stop at 11:23; Status DC Temazepam (Restoril) 7.5 mg PRN QHS PRN PO INSOMNIA; Start 05/04/18 at 08:45 Tramadol HCl (Ultram) 50 mg PRN Q6HRS PRN PO MODERATE PAIN; Start 05/04/18 at 08:45; Stop 05/04/18 at 10:13; Status DC Artificial Tears (Artificial Tears) 1 drop PRN Q15MIN PRN OU DRY EYE; Start at 09:15 Insulin Human Lispro (HumaLOG) 10 units TIDWMEALS SQ Last administered on 05/06at 11:52; Start 05/04/18 at 12:00 Insulin Glargine (Lantus) 25 units QHS SQ Last administered on 05/05/18at 21:09 ; Start 05/04/18 at 21:00 Metoprolol Tartrate (Lopressor) 100 mg BID PO Last administered on 05/05/18at 08:58; Start 05/04/18 at 10:00; Stop 05/06/18 at 14:09; Status DC Paroxetine HCl (Paxil) 40 mg QHS PO Last administered on 05/05/18at 21:03; Start 05/04/18 at 21:00 Gabapentin (Neurontin) 400 mg TID PO Last administered on 05/06/18at 08:11; Start 05/04/18 at 09:30; Stop 05/06/18 at 12:44; Status DC Saliva Substitute (Biotene Moisturizing Mouth) 2 spray PRN Q15MIN PRN PO DRY MOUTH; Start 05/04/18 at 09:15 Enoxaparin Sodium (Lovenox Per Pharmacy Prophylaxis Dosing) 1 each PRN DAILY PRN MC SEE COMMENTS; Start 05/05/18 at 17:00 Enoxaparin Sodium (Lovenox 40mg Syringe) 40 mg DAILY SQ Last administered on at 08:13; Start 05/04/18 at 10:00 Linezolid (Zyvox) 600 mg BID PO Last administered on 05/05/18at 21:04; Start 05/04/18 at 10:30; Stop 05/06/18 at 07:52; Status DC Piperacillin Sod/ Tazobactam Sod 2.25 gm/Sodium Chloride 50 ml @ 100 mls/hr Q6HRS IV Last administered on 05/06/18at 11:50; Start 05/05/18 at 12:00 Metoprolol Tartrate (Lopressor) 50 mg 1X ONCE PO Last administered on at 00:00; Start 05/05/18 at 23:55; Stop 05/05/18 at 23:56; Status DC Isosorbide Dinitrate (Isordil) 10 mg PRN TID PRN PO HYPERTENSION, SEE COMMENTS Last administered on 05/06/18at 05:12; Start 05/05/18 at 23:45 Vitamin D (Vitamin D3) 2,000 unit DAILY PO Last administered on 05/06/18at 11: 49; Start 05/06/18 at 12:00; Stop 05/06/18 at 12:59; Status DC Acetaminophen/ Hydrocodone Bitart (Lortab 5/325) 1 tab PRN Q4HRS PRN PO PAIN; Start 05/06/18 at 11:30 Oxycodone HCl (Roxicodone) 10 mg 1X ONCE PO Last administered on 05/06/18at 11 :50; Start 05/06/18 at 12:00; Stop 05/06/18 at 12:01; Status DC Gabapentin (Neurontin) 200 mg TID PO Last administered on 05/06/18at 13:54; Start 05/06/18 at 14:00 Ergocalciferol (Vitamin D2) 50,000 unit WEEKLY PO Last administered on at 13:54; Start 05/06/18 at 14:00 Metoprolol Tartrate (Lopressor) 50 mg BID PO ; Start 05/06/18 at 21:00 Active Scripts Active Reported Vitamin D (Cholecalciferol (Vitamin D3)) 2,000 Unit Capsule 1 Cap PO DAILY Zinc (Zinc Amino Acid Chelate) 50 Mg Tablet 50 Mg PO Temazepam 7.5 Mg Capsule 7.5 Mg PO Q12 PRN Paroxetine Hcl 40 Mg Tablet 1 Tab PO HS Oxycodone Hcl 5 Mg Tablet 1 Tab PO QID PRN Miconazorb Af (Miconazole Nitrate) 71 Gm Powder 71 Gm TP Multi-Vitamin Daily (Multivitamin) 1 Each Tablet 1 Each PO Metoprolol Tartrate 100 Mg Tablet 1 Tab PO BID Lidocaine 1 Each Adh..patch 1 Each TP Levemir (Insulin Detemir) 100 Unit/1 Ml Vial 25 Unit SQ HS Fish Oil 1,000 Mg Capsule ([place]-3 Fatty Acids/Fish Oil) 1 Each Capsule 1 Each PO Clonidine Hcl 0.1 Mg Tablet 0.1 Mg PO TID Allopurinol 100 Mg Tablet 2 Tab PO DAILY Lortab 5-325 mg Tablet (Hydrocodone/Acetaminophen) 1 Each Tablet 1 Tab PO PRN Q6HRS PRN Lofibra (Fenofibrate) 54 Mg Tablet 54 Mg PO DAILY Alprazolam 0.5 Mg Tablet 1 Tab PO TID PRN PRN Paroxetine Hcl 40 Mg Tablet 1 Tab PO HS Tramadol Hcl 50 Mg Tablet 1 Tab PO PRN Q6HRS Refresh Optive Eye Drops (Carboxymethylcellulos/Glycerin) 15 Ml Drops 1 Drop EACHEYE PRN BID PRN Atorvastatin Calcium 40 Mg Tablet 1 Tab PO DAILY Aspirin Ec (Aspirin) 81 Mg Tablet.dr 1 Tab PO DAILY Novolog Flexpen (Insulin Aspart) 100 Unit/1 Ml Insuln.pen 10 Unit SQ TIDAC Allergies Allergies: Coded Allergies: indomethacin (Verified Allergy, Intermediate, 03/05/16) lisinopril (Verified Allergy, Intermediate, 03/05/16) sertraline (Verified Allergy, Intermediate, 03/05/16) ROS Review of System As per HPI Physical Exam Physical Exam General- NAD , His left arm is in a sling. HEENT: OM Dryish NECK: Supple, no JVD. LUNGS: Clear to auscultation. HEART: S1, S2. ABDOMEN: Obese, soft, nontender, EXTREMITIES: left ankle has trace to 1+ edema. NEUROLOGICAL: He is alert and oriented. SKIN: No rash - No CA or SP tenderness , No [place] Vital Signs Vital Signs Date Time Temp Pulse Resp B/P (MAP) Pulse Ox O2 Delivery O2 Flow Rate FiO2 05/06/18 13:53 55 154/60 05/06/18 11:50 Room Air 05/06/18 11:00 97.4 18 96 97.4 05/06/18 06:10 2.0 Assessment & Plan ALISON - ATN , Hypotensive episodes as per vitals recorded , UTI Don't have accurate UOP as Pt Incontinent(hx of urinary retention in past) Will get a Bladder scan / PVR E-Lytes wnl, Monitor CKD stage 3 -Cr 1.5 in November at [facility] (Dr. Mendes) Creat has been 2-2.1 since 2013 as per Records available in [employer] [facility]- Likely acute UTI - On Abx, ID following AMS- Hospitalized with Confusion Left ankle fracture - h/o Osteomyelitis - appears chronic DM- as per primary HTN- Hypotensive episodes, Now mildly above goal On multiple meds Discussed above with Pt, his and RN Labs Labs Laboratory Tests Test 05/04/18 17:10 05/04/18 18:40 05/04/18 21:05 05/05/18 05:20 Glucose (Fingerstick) 252 mg/dL (70-99) 257 mg/dL (70-99) 264 mg/dL (70-99) White Blood Count 10.0 x10^3/uL (4.0-11.0) Red Blood Count 2.83 x10^6/uL (4.30-5.70) Hemoglobin 8.9 g/dL (13.0-17.5) Hematocrit 26.3 % (39.0-53.0) Mean Corpuscular Volume 93 fL (79-100) Mean Corpuscular Hemoglobin 31 pg (25-35) Mean Corpuscular Hemoglobin Concent 34 g/dL (31-37) Red Cell Distribution Width 17.1 % (11.5-14.5) Platelet Count 330 x10^3/uL (140-400) Neutrophils (%) (Auto) 64 % (31-73) Lymphocytes (%) (Auto) 13 % (24-48) Monocytes (%) (Auto) 20 % (0-9) Eosinophils (%) (Auto) 3 % (0-3) Basophils (%) (Auto) 0 % (0-3) Neutrophils # (Auto) 6.4 x10^3uL (1.8-7.7) Lymphocytes # (Auto) 1.3 x10^3/uL (1.0-4.8) Monocytes # (Auto) 2.0 x10^3/uL (0.0-1.1) Eosinophils # (Auto) 0.3 x10^3/uL (0.0-0.7) Basophils # (Auto) 0.0 x10^3/uL (0.0-0.2) Sodium Level 139 mmol/L (136-145) Potassium Level 4.7 mmol/L (3.5-5.1) Chloride Level 105 mmol/L (98-107) Carbon Dioxide Level 26 mmol/L (21-32) Anion Gap 8 (6-14) Blood Urea Nitrogen 29 mg/dL (8-26) Creatinine 2.5 mg/dL (0.7-1.3) Estimated GFR (Cockcroft-Gault) 26.4 Glucose Level 244 mg/dL (70-99) Calcium Level 9.1 mg/dL (8.5-10.1) Vitamin B12 Level 430 pg/mL (247-911) 25-Hydroxy Vitamin D Total 24.6 ng/mL (30-100) Test 05/05/18 08:03 05/05/18 11:47 05/05/18 14:49 05/05/18 16:43 Glucose (Fingerstick) 195 mg/dL (70-99) 169 mg/dL (70-99) 110 mg/dL (70-99) 141 mg/dL (70-99) Test 05/05/18 21:07 05/06/18 07:23 05/06/18 07:50 05/06/18 10:54 Glucose (Fingerstick) 164 mg/dL (70-99) 131 mg/dL (70-99) 135 mg/dL (70-99) Sodium Level 143 mmol/L (136-145) Potassium Level 4.3 mmol/L (3.5-5.1) Chloride Level 106 mmol/L (98-107) Carbon Dioxide Level 27 mmol/L (21-32) Anion Gap 10 (6-14) Blood Urea Nitrogen 22 mg/dL (8-26) Creatinine 2.2 mg/dL (0.7-1.3) Estimated GFR (Cockcroft-Gault) 30.6 Glucose Level 151 mg/dL (70-99) Calcium Level 9.0 mg/dL (8.5-10.1) Laboratory Tests Test 05/05/18 16:43 05/05/18 21:07 05/06/18 07:23 05/06/18 07:50 Glucose (Fingerstick) 141 mg/dL (70-99) 164 mg/dL (70-99) 131 mg/dL (70-99) Sodium Level 143 mmol/L (136-145) Potassium Level 4.3 mmol/L (3.5-5.1) Chloride Level 106 mmol/L (98-107) Carbon Dioxide Level 27 mmol/L (21-32) Anion Gap 10 (6-14) Blood Urea Nitrogen 22 mg/dL (8-26) Creatinine 2.2 mg/dL (0.7-1.3) Estimated GFR (Cockcroft-Gault) 30.6 Glucose Level 151 mg/dL (70-99) Calcium Level 9.0 mg/dL (8.5-10.1) Test 05/06/18 10:54 Glucose (Fingerstick) 135 mg/dL (70-99) Review All relevant outside records, renal labs, imaging studies, telemetry/EKG's were reviewed. Images Images Renal US and Doppler in 2016 The right kidney measures 12.6 cm in length while the left kidney measures 12.4 cm. There is mild bilateral renal cortical scarring. There is no evidence of hydronephrosis or a renal mass. The renal parenchymal echogenicity is within normal limits. No abnormal perinephric process is seen. The partially filled urinary bladder is unremarkable. IMPRESSION: 1. Mild renal cortical scarring. 2. The kidneys are otherwise unremarkable. Deep Doppler renal ultrasound, 03/06/2016: History: Uncontrolled hypertension Duplex evaluation of the main renal arteries was attempted including grayscale, color-flow and spectral Doppler analysis. The origins of the renal arteries could not be visualized due to overlying bowel. The Doppler waveforms obtained from the mid and distal aspects of the right and left renal arteries demonstrate no high velocities to suggest significant renal artery stenosis. No parvus/tardus phenomena is seen. Patent renal veins were noted. IMPRESSION: No duplex evidence of significant renal artery stenosis, although the renal artery origins were not adequately visualized. ALEXSANDRA WINSTON MD May 06, 2018 16:17
--- NOTE | 2018-05-06 18:35 | PDOC ---
PROGRESS NOTES Assessment Assessment Metabolic encephalopathy. Hallucinations. UTI. Leukocytosis. Elevated ESR, 103. Elevated CRP 99.8. Left LE cellulitis. Left shoulder fracture, 3 weeks ago. Left distal calcaneus fracture, chronic. Osteomyelitis. Renal failure. CKD. Anemia. Right C7 radiculopathy. CAD s/p CABG. Bipolar disorder. RECOMMENDATIONS/PLAN: Consulted ID. Treat medical diseases. Lab: see orders. OT/PT. Discussed with his at bedside on 05/06/18. EEG on 05/04/18: Mild encephalopathy. HISTORY OF THE PRESENT ILLNESS: 62-y-old male patient with above medical and orthopedic diseases was treated win outside hospital then went rehab. He was noted MS changes and hallucinations. After discontinued narcotics, but he still has hallucination, so he was brought to the ER of [facility]. Past Medical History Past Medical History [place] rehabilitation half-way patient with history of CVA, left shoulder fracture, left ankle/foot cellulitis Cardiovascular: CAD, CHF, HTN, [place], Hyperlipidemia Pulmonary: No pertinent hx CENTRAL NERVOUS SYSTEM: CVA, Other GI: GERD, Peptic Ulcer disease, Other Heme/Onc: No pertinent hx Hepatobiliary: No pertinent hx Psych: Anxiety Musculoskeletal: Osteoarthritis Rheumatologic: No pertinent hx Infectious disease: No pertinent hx Renal/: Chronic renal insuff Past Surgical History CABG, Total hip replacement, Colon Resection, Other Family History Coronary Artery Disease, Heart Disease Social History Smoke: No ALCOHOL: none Drugs: None ALLERGY: Reviewed. MEDICATIONS: Refer to [facility] REVIEW OF SYSTEMS: Constitutional: No malnutrition, weight loss, cachexia. Head: No traumatic brain or head injury. Skin: No edema, or rash. Ear: No infection. Eyes: No vision loss or color blindness. Nose: No bleeding or purulent discharges. Hearing: No hearing decrease. Cardiac: CAD, s/p CABG, HTN. Pulmonary: No COPD. GI: No GI ulcer, GI bleeding. Urinary/genital: CKD. Endocrinologic: Diabetes Mellitus. Skeletomuscular: Fractures in shoulder and foot. Neurological: see HP. Psychiatric: Denies drug use/abuse. Otherwise, not [id number] review of systems. PHYSICAL EXAMINATION: General appearance is in subacute on chronic distress. HEENT: Normocephalic and nontraumatic. Eyes, nose, ears, and throat are unremarkable. Neck is supple. No lymphadenopathy. No crepitus. Cardiovascular: S1, S2, regular rate and rhythm. Pulmonary: Clear to auscultation bilaterally. Abdomen: Bowel sounds are positive. Abdomen is soft, nontender, and nondistended. Extremities: No rash, lesions, or edema. No restriction of range of motion NEUROLOGICAL EXAMINATION: Awake. Oriented partially to time, knew place and person. PERRL. EOMI. CN: no focal findings. Muscle tone: within normal. Muscle strength: 4+ UE, 4- LE DTR: 2- UE, 0 at knee. Plantar reflex: Flexor response at right side. Not able to access left side since wrapped. Gait: Able to walk. Sensory exam: no abnormal findings in UE, decreased vibration sense in LE. No cerebellar signs elicited. F-T-N test fine Objective Objective Vital Signs Date Time Temp Pulse Resp B/P (MAP) Pulse Ox O2 Delivery O2 Flow Rate FiO2 05/06/18 18:17 Room Air 05/06/18 15:00 98.5 54 18 171/66 (101) 96 98.5 05/06/18 06:10 2.0 Intake and Output 05/06/18 07:00 Intake Total 200 ml Output Total 250 ml Balance -50 ml IV Total 200 ml Output Urine Total 250 ml # Voids 4 # Bowel Movements 4 Vitals Signs Vitals VS - Last 72 Hours, by Label Date Time Temp Pulse Resp B/P (MAP) Pulse Ox O2 Delivery O2 Flow Rate FiO2 05/06/18 18:17 Room Air 05/06/18 15:00 98.5 54 18 171/66 (101) 96 Room Air 98.5 05/06/18 13:53 55 154/60 05/06/18 13:00 Room Air 05/06/18 11:50 Room Air 05/06/18 11:00 97.4 56 18 111/49 (69) 96 Room Air 97.4 05/06/18 08:22 57 177/68 05/06/18 08:12 57 177/68 05/06/18 08:00 Room Air 05/06/18 07:00 97.5 57 17 177/68 (104) 92 Room Air 97.5 05/06/18 06:10 95 Nasal Cannula 2.0 05/06/18 05:12 58 204/74 05/06/18 05:11 95 Nasal Cannula 2.0 05/06/18 03:00 98.9 58 20 204/74 (117) 95 Room Air 98.9 05/06/18 00:01 56 193/73 05/06/18 00:00 56 193/73 05/05/18 23:00 98.1 56 20 193/73 (113) 97 Room Air 98.1 05/05/18 21:00 51 105/51 05/05/18 20:00 Nasal Cannula 2.0 05/05/18 19:00 98.7 61 20 156/55 (88) 98 Room Air 98.7 05/05/18 18:21 Room Air 05/05/18 15:00 97.6 51 16 105/51 (69) 97 Room Air 97.6 05/05/18 14:55 55 95/49 (64) 05/05/18 14:52 48 100/47 (64) 05/05/18 14:50 49 94/51 (65) 05/05/18 11:43 Nasal Cannula 2.0 05/05/18 08:58 61 185/66 05/05/18 08:58 61 185/66 05/05/18 08:30 Nasal Cannula 2.0 05/05/18 07:00 98.1 61 18 185/66 (105) 95 Nasal Cannula 2.0 98.1 Laboratory Laboratory Laboratory Tests Test 05/05/18 21:07 05/06/18 07:23 05/06/18 07:50 05/06/18 10:54 Glucose (Fingerstick) 164 mg/dL (70-99) 131 mg/dL (70-99) 135 mg/dL (70-99) Sodium Level 143 mmol/L (136-145) Potassium Level 4.3 mmol/L (3.5-5.1) Chloride Level 106 mmol/L (98-107) Carbon Dioxide Level 27 mmol/L (21-32) Anion Gap 10 (6-14) Blood Urea Nitrogen 22 mg/dL (8-26) Creatinine 2.2 mg/dL (0.7-1.3) Estimated GFR (Cockcroft-Gault) 30.6 Glucose Level 151 mg/dL (70-99) Calcium Level 9.0 mg/dL (8.5-10.1) Test 05/06/18 16:44 Glucose (Fingerstick) 147 mg/dL (70-99) Microbiology 05/04/18 Blood Culture - Preliminary, Resulted NO GROWTH AFTER 2 DAYS 05/03/18 Urine Culture - Preliminary, Resulted 05/03/18 Urine Culture Result 1 (ANDREIA) - Preliminary, Resulted Medication Medications Current Medications Acetaminophen/ Hydrocodone Bitart (Lortab 5/325) 1 tab PRN Q4HRS PRN PO PAIN Last administered on 05/06/18at 18:17; Start 05/06/18 at 11:30 Ergocalciferol (Vitamin D2) 50,000 unit WEEKLY PO Last administered on at 13:54; Start 05/06/18 at 14:00 Gabapentin (Neurontin) 200 mg TID PO Last administered on 05/06/18at 13:54; Start 05/06/18 at 14:00 Isosorbide Dinitrate (Isordil) 10 mg PRN TID PRN PO HYPERTENSION, SEE COMMENTS Last administered on 05/06/18at 05:12; Start 05/05/18 at 23:45 Metoprolol Tartrate (Lopressor) 50 mg 1X ONCE PO Last administered on at 00:00; Start 05/05/18 at 23:55; Stop 05/05/18 at 23:56; Status DC Metoprolol Tartrate (Lopressor) 50 mg BID PO ; Start 05/06/18 at 21:00 Oxycodone HCl (Roxicodone) 10 mg 1X ONCE PO Last administered on 05/06/18at 11 :50; Start 05/06/18 at 12:00; Stop 05/06/18 at 12:01; Status DC Vancomycin HCl (Vancomycin Trough Level) 1 each 1X ONCE MC ; Start 05/06/18 at 00:30; Stop 05/06/18 at 00:30; Status DC Vitamin D (Vitamin D3) 2,000 unit DAILY PO Last administered on 05/06/18at 11: 49; Start 05/06/18 at 12:00; Stop 05/06/18 at 12:59; Status DC Comment Review of Relevant I have reviewed the following items rebeka (where applicable) has been applied. QUENTIN KHAN MD May 06, 2018 18:35
[2018-05-06 19:00] VITALS: BP 189/62
[2018-05-06] MEDS: ATORVASTATIN CALCIUM 40 MG TABLET. PO SCH (20:41)
[2018-05-06] MEDS: PARoxetine 20 MG TABLET PO SCH (20:41)
[2018-05-06] MEDS: INSULIN GLARGINE 300 UNITS/3 ML INSULN.PEN. SQ SCH (20:51)
[2018-05-06 23:00] VITALS: BP 206/61
[2018-05-07 03:00] VITALS: BP 214/77
[2018-05-07] MEDS: amLODIPine BESYLATE 5 MG TABLET PO SCH ×2 (03:41→08:17)
[2018-05-07] MEDS: PIPERACILLIN/TAZOBACTAM 2.25 GM in IV NORMAL SALINE 50ML 50 ML IV SCH ×2 (05:49→11:22)
[2018-05-07 07:00] VITALS: BP 229/77
[2018-05-07] MEDS: LACTOBACILLUS RHAMNOSUS GG 1 CAPSULE. PO SCH (08:14)
[2018-05-07] MEDS: cloNIDine HCL 0.1 MG TABLET PO SCH ×2 (08:14→15:02)
[2018-05-07] MEDS: METOPROLOL TART IMMED RELEASE 50 MG TABLET. PO SCH (08:15)
[2018-05-07] MEDS: GABAPENTIN 100 MG CAPSULE. PO SCH ×2 (08:16→15:02)
[2018-05-07] MEDS: ALLOPURINOL 100 MG TABLET. PO SCH (08:17)
[2018-05-07] MEDS: ISOSORBIDE DINITRATE 10 MG TABLET. PO PRN (08:18)
[2018-05-07] MEDS: ENOXAPARIN 40 MG/0.4 ML SYRINGE. SQ SCH (08:18)
[2018-05-07] MEDS: HYDROcodone/APAP 5/325MG 1 TAB TABLET PO PRN (08:19)
[2018-05-07] MEDS: ALPRAZolam 0.5 MG TABLET PO PRN ×2 (08:19→16:10)
[2018-05-07] MEDS: ASPIRIN ENTERIC COATED 81 MG TABLET.DR. PO SCH (08:29)
[2018-05-07] MEDS: INSULIN LISPRO 300 UNITS/3 ML INSULN.PEN. SQ SCH ×2 (08:35→13:47)
[2018-05-07] MEDS ORDERED: OXYC5TAB95 PO (10:16)
[2018-05-07] MEDS ORDERED: ALPR0.5T6 PO (10:16)
[2018-05-07] MEDS ORDERED: ACET325T9 PO (10:17)
--- NOTE | 2018-05-07 10:18 | DISCH ---
DISCHARGE DISCHARGE INFORMATION: DISCHARGE DATE: May 07, 2018 CONDITION ON DISCHARGE: Stable CODE STATUS: Code Status: Full SENIOR CARE: SNF STAY <30 DAYS: Yes POST DISCHARGE ORDERS: ACTIVITY ORDERS: Activity as tolerated WEIGHT BEARING STATUS: As tolerated DIET AFTER DISCHARGE: ADA FOLLOW-UP: PHYSICIAN FOLLOW-UP: < 2 weeks primary care TREATMENT/EQUIPMENT ORDERS: ADAPTIVE EQUIPMENT NEEDED: Front wheeled walker Physical Therapy For: Evalulation/Treatment Occupational Therapy For: Evaluation/Treatment DISCHARGE MEDICATIONS: Home Meds Active Scripts Hydralazine Hcl (HYDRALAZINE HCL) 50 Mg Tablet, 1 TAB PO TID, #90 TAB Prov:PHU MESA MD 05/07/18 Amlodipine Besylate (AMLODIPINE BESYLATE) 5 Mg Tablet, 5 MG PO DAILY, #30 TAB Prov:PHU MESA MD 05/07/18 Acetaminophen (TYLENOL) 325 Mg Tablet, 1 TAB PO PRN Q4HRS, #30 TAB Prov:PHU MESA MD 05/07/18 Oxycodone Hcl (OXYCODONE HCL) 5 Mg Tablet, 1 TAB PO QID PRN for PAIN, #30 TAB Prov:PHU MESA MD 05/07/18 Alprazolam (ALPRAZOLAM) 0.5 Mg Tablet, 1 TAB PO TID PRN PRN for ANXIETY / AGITATION, #30 TAB Prov:PHU MESA MD 05/07/18 Reported Medications Cholecalciferol (Vitamin D3) (VITAMIN D) 2,000 Unit Capsule, 1 CAP PO DAILY, # 30 CAP 3 Refills 05/04/18 Zinc Amino Acid Chelate (ZINC) 50 Mg Tablet, 50 MG PO, TAB 05/04/18 Temazepam (TEMAZEPAM) 7.5 Mg Capsule, 7.5 MG PO Q12 PRN for INSOMNIA, CAP 05/04/18 Paroxetine Hcl (PAROXETINE HCL) 40 Mg Tablet, 1 TAB PO HS, #30 TAB 5 Refills 05/04/18 Miconazole Nitrate (MICONAZORB AF) 71 Gm Powder, 71 GM TP, MISC 05/04/18 Multivitamin (MULTI-VITAMIN DAILY) 1 Each Tablet, 1 EACH PO, TAB 05/04/18 Metoprolol Tartrate (METOPROLOL TARTRATE) 100 Mg Tablet, 1 TAB PO BID, #60 TAB 5 Refills 05/04/18 Lidocaine (Lidocaine) 1 Each Adh..patch, 1 EACH TP, PATCH 05/04/18 Insulin Detemir (LEVEMIR) 100 Unit/1 Ml Vial, 25 UNIT SQ HS, VIAL 05/04/18 [place]-3 Fatty Acids/Fish Oil (FISH OIL 1,000 MG CAPSULE) 1 Each Capsule, 1 EACH PO, CAP 05/04/18 Clonidine Hcl (CLONIDINE HCL) 0.1 Mg Tablet, 0.1 MG PO TID, TAB 05/04/18 Allopurinol (ALLOPURINOL) 100 Mg Tablet, 2 TAB PO DAILY, #30 TAB 5 Refills 05/04/18 Hydrocodone/Acetaminophen (Lortab 5-325 mg Tablet) 1 Each Tablet, 1 TAB PO PRN Q6HRS PRN for PAIN, TAB 0 Refills 03/06/16 Fenofibrate (LOFIBRA) 54 Mg Tablet, 54 MG PO DAILY 03/06/16 Paroxetine Hcl (PAROXETINE HCL) 40 Mg Tablet, 1 TAB PO HS, #30 TAB 5 Refills 03/05/16 Tramadol Hcl (TRAMADOL HCL) 50 Mg Tablet, 1 TAB PO PRN Q6HRS, #30 TAB 03/05/16 Carboxymethylcellulos/Glycerin (REFRESH OPTIVE EYE DROPS) 15 Ml Drops, 1 DROP EACHEYE PRN BID PRN for DRY EYE, #30 ML 6 Refills 03/05/16 Atorvastatin Calcium (ATORVASTATIN CALCIUM) 40 Mg Tablet, 1 TAB PO DAILY, #30 TAB 5 Refills 03/05/16 Aspirin (ASPIRIN EC) 81 Mg Tablet.dr, 1 TAB PO DAILY, #30 TAB 3 Refills 03/05/16 Insulin Aspart (NOVOLOG FLEXPEN) 100 Unit/1 Ml Insuln.pen, 10 UNIT SQ TIDAC, SYR 03/05/16 Discontinued Reported Medications Carbamazepine (TEGRETOL) 200 Mg Tablet, 200 MG PO HS 03/06/16 Divalproex Sodium (DEPAKOTE ER) 500 Mg Tab.er.24h, 3 TAB PO QHS, #90 TAB 2 Refills 03/06/16 Hydralazine Hcl (HYDRALAZINE HCL) 25 Mg Tablet, 1 TAB PO TID, #90 TAB 5 Refills 03/06/16 Labetalol Hcl (LABETALOL HCL) 200 Mg Tablet, 1 TAB PO BID, #60 TAB 5 Refills 03/06/16 Amlodipine Besylate (NORVASC) 10 Mg Tablet, 10 MG PO DAILY, TAB 03/06/16 Polyethylene Glycol 3350 (POLYETHYLENE GLYCOL 3350) 17 Gm Powd.pack, 17 GM PO DAILY 03/05/16 Omeprazole (OMEPRAZOLE) 20 Mg Tablet.dr, 2 TAB PO DAILY07, #90 TAB 1 Refill 03/05/16 Metoprolol Tartrate (METOPROLOL TARTRATE) 25 Mg Tablet, 0.5 TAB PO BID, #180 TAB 1 Refill 03/05/16 Losartan Potassium (LOSARTAN POTASSIUM) 25 Mg Tablet, 25 MG PO DAILY, TAB 03/05/16 Isosorbide Mononitrate (ISOSORBIDE MONONITRATE ER) 30 Mg Tab.er.24h, 1 TAB PO DAILY, #30 TAB 5 Refills 03/05/16 PHU MESA MD May 07, 2018 10:18
[2018-05-07] MEDS ORDERED: HYDR-2869 PO (10:21)
[2018-05-07] MEDS ORDERED: AMLO5TAB7 PO (10:21)
[2018-05-07 11:11] VITALS: BP 167/59
--- NOTE | 2018-05-07 11:49 | PDOC ---
Infectious Disease Note Subjective Subjective Additional info from [facility]. [facility] PSA/Enterococcus faecalis/Prevotella/STCN/Diptheroids and was on Zosyn. Admitted to [facility] in September and underwent stenting to [facility] and underwent L heel I and D 10/13/[address] Jaime. - no positive cults. Treated initially with zyvox and Meropenem and cont the Meropenem for 6 weeks at [facility] and then unknown oral abx for 6 weeks. Underwent 30 HBO treatments. Wound cult 12/30/17 - Corynebacterium. Was discharged from wound care 02/[address] Sneed This morning patient says he is feeling better, denies pain Some diarrhea Appetite alright Denies N/V/cramps/bloating Denies F/C/S ROS ROS per HPI otherwise neg Vital Sign Vital Signs Vital Signs Date Time Temp Pulse Resp B/P (MAP) Pulse Ox O2 Delivery O2 Flow Rate FiO2 05/07/18 11:21 49 167/59 05/07/18 11:11 97.7 20 97 Room Air 97.7 05/07/18 00:23 2.0 Physical Exam PHYSICAL EXAM GENERAL: Lying down, alert, relaxed appearance HEENT: Normal conjunctivae. Oral cavity, pharynx is dry. NECK: Supple LUNGS: Clear to auscultation. HEART: S1, S2. ABDOMEN: Obese, soft, nontender, no guarding. EXTREMITIES: Without clubbing or cyanosis. His left ankle has trace to 1+ edema. There is no bruising associated with the ankle. He has a well-healed scar in the posterior aspect. Left shoulder sling NEUROLOGICAL: Alert, responds appropriately SKIN: Warm to touch without signs of rash. Labs Lab Laboratory Tests Test 05/06/18 16:44 05/06/18 20:46 05/07/18 07:24 05/07/18 11:18 Glucose (Fingerstick) 147 mg/dL (70-99) 252 mg/dL (70-99) 170 mg/dL (70-99) 113 mg/dL (70-99) MPRESSION: 1. Well-defined chronic appearing defect at the posteroinferior calcaneus, could be due to surgical resection or chronic osteomyelitis. 2. Fracture of the distal calcaneus, does not appear acute by MRI imaging. Fracture could be related to diabetic neuropathy if there is no history of appropriate trauma. Pathologic fracture due to calcaneal osteomyelitis is also possible. Heterogeneous calcaneal marrow signal marginating this fracture, is likely related to the fracture itself, although osteomyelitis is difficult to exclude. 3. There is a subtalar and tibiotalar joint effusion of uncertain sterility. Could be sterile fluid or infected content. 4. Moderate insertional Achilles tendinosis. 5. Patchy bone marrow edema at the talus, distal tibia and distal fibula, likely degenerative or reactive. #6 subluxation of the posterior subtalar joint. Micro 05/04/18 Blood Culture - Preliminary, Resulted NO GROWTH AFTER 3 DAYS URINE CULTURE Final Final report URINE CULTURE RES 1 Final Enterococcus faecalis Greater than 100,000 colony forming units per mL ANTIMICROBIAL SUSCEPTIBILITY Final Comment S = Susceptible; I = Intermediate; R = Resistant P = Positive; N = Negative MICS are expressed in micrograms per mL Antibiotic RSLT#1 RSLT#2 RSLT#3 RSLT#4 Ciprofloxacin S<=0.5 Levofloxacin S =0.5 Nitrofurantoin S<=16 Penicillin S =2 Tetracycline R>=16 Vancomycin S =2 Objective Assessment Leukocytosis - better - may be sec to UTI Left ankle fracture - h/o Osteomyelitis - appears chronic UTI -POA - Enterococcus PCN sensitive Encephalopathy - improving ALISON on CKD worse HTN LUE fracture - chronic Bipolar DM Plan Plan of Care Zosyn for now, change to po soon Discharge planning under way to SNF Ankle changes appear chronic. Appreciate Ortho eval D/w RN Attending Co-Sign The patient was seen and interviewed as well as examined at the bedside. The chart was reviewed. The case was discussed. Agree with the plan of care. calcaneal finding on MRI is old infection , he does not have any wound there. change antibiotics to po amox d/c to rehab ok ADAM FERRELL APRN May 07, 2018 11:49 MANSI OLSEN MD May 07, 2018 12:36
[2018-05-07 14:57] VITALS: BP 146/57
[2018-05-07 15:02] VITALS: BP 146/57
--- NOTE | 2018-05-07 15:32 | PDOC ---
SUBJECTIVE ROS Sleeping comfortable, No complaints/concerns by Pt OBJECTIVE Vital Signs Vital Signs Date Time Temp Pulse Resp B/P (MAP) Pulse Ox O2 Delivery O2 Flow Rate FiO2 05/07/18 15:02 50 146/57 05/07/18 14:57 97.7 20 92 Room Air 97.7 05/07/18 00:23 2.0 I & 0 Intake and Output 05/07/18 07:00 Intake Total 630 ml Output Total 100 ml Balance 530 ml Intake Oral 480 ml IV Total 150 ml Output Urine Total 100 ml # Voids 6 # Bowel Movements 3 PHYSICAL EXAM Physical Exam General- NAD , His left arm is in a sling. HEENT: OM Dryish NECK: Supple, no JVD. LUNGS: Clear to auscultation. HEART: S1, S2. ABDOMEN: Obese, soft, nontender, EXTREMITIES: left ankle has trace to 1+ edema. NEUROLOGICAL: He is alert and oriented. SKIN: No rash - No CA or SP tenderness , No Hardin DIAGNOSIS/ASSESSMENT Assessment & Plan ALISON - ATN , Hypotensive episodes as per vitals recorded , UTI Don't have accurate UOP as Pt Incontinent(hx of urinary retention in past) No Retention on bladder scan No labs done today If Not dced BMP tomorrow CKD stage 3 -Cr 1.5 in November at [facility] (Dr. Mendes) Creat has been 2-2.1 since 2013 as per Records available in [place]- Likely acute UTI - On Abx, ID following AMS- Hospitalized with Confusion Left ankle fracture - h/o Osteomyelitis - appears chronic DM- as per primary HTN- Hypotensive episodes, Now mildly above goal On multiple meds Continue to follow with nephrology post dc (Goes to [facility]) DC planning to [facility] COMMENT/RELEVANT DATA Meds Current Medications Medications (Trade) Dose Ordered Sig/Gema Start Time Stop Time Status Last Admin Dose Admin Acetaminophen/ Hydrocodone Bitart (Lortab 5/325) 1 tab PRN Q4HRS PRN 05/06/18 11:30 05/07/18 08:19 1 TAB Allopurinol (Zyloprim) 200 mg DAILY 05/04/18 10:00 05/07/18 08:17 200 MG Alprazolam (Xanax) 0.5 mg TID PRN PRN 05/04/18 08:45 10/19/18 08:19 0.5 MG Amlodipine Besylate (Norvasc) 5 mg DAILY 05/07/18 03:45 05/07/18 08:17 5 MG Amoxicillin (Amoxil) 500 mg BID 05/07/18 21:00 Artificial Tears (Artificial Tears) 1 drop PRN Q15MIN PRN 05/04/18 09:15 Aspirin (Ecotrin) 81 mg DAILY08 05/04/18 10:00 05/07/18 08:29 81 MG Atorvastatin Calcium (Lipitor) 40 mg QHS 05/04/18 21:00 05/06/18 20:41 40 MG Clonidine HCl (Catapres) 0.1 mg TID 05/04/18 10:00 05/07/18 15:02 0.1 MG Enoxaparin Sodium (Lovenox 40mg Syringe) 40 mg DAILY 05/04/18 10:00 05/07/18 08:18 40 MG Enoxaparin Sodium (Lovenox Per Pharmacy Prophylaxis Dosing) 1 each PRN DAILY PRN 05/05/18 17:00 Ergocalciferol (Vitamin D2) 50,000 unit WEEKLY 05/06/18 14:00 05/06/18 13:54 50,000 UNIT Fentanyl Citrate (Fentanyl 2ml Vial) 25 mcg PRN Q2MIN PRN 05/03/18 22:15 05/04/18 00:00 DC Gabapentin (Neurontin) 200 mg TID 05/06/18 14:00 05/07/18 15:02 200 MG Hydralazine HCl (Apresoline) 50 mg TID 05/07/18 10:30 05/07/18 15:02 50 MG Influenza Virus Vaccine (Afluria Trivalent [id number] Syringe) 0.5 ml ONCE ONCE 05/04/18 09:00 05/04/18 09:01 DC Insulin Glargine (Lantus) 25 units QHS 05/04/18 21:00 05/06/18 20:51 25 UNITS Insulin Human Lispro (HumaLOG) 10 units TIDWMEALS 05/04/18 12:00 05/07/18 13:47 10 UNITS Isosorbide Dinitrate (Isordil) 10 mg PRN TID PRN 05/05/18 23:45 05/07/18 08:18 10 MG Lactobacillus Rhamnosus (Culturelle) 1 cap BID 05/04/18 09:00 05/07/18 08:14 1 CAP Linezolid (Zyvox) 600 mg BID 05/04/18 10:30 05/06/18 07:52 DC 05/05/18 21:04 600 MG Metoprolol Tartrate (Lopressor) 50 mg BID 05/06/18 21:00 05/07/18 08:15 50 MG Ondansetron HCl (Zofran) 4 mg PRN Q8HRS PRN 05/03/18 22:15 05/04/18 22:14 DC 05/03/18 23:28 4 MG Oxycodone HCl (Roxicodone) 10 mg 1X ONCE 05/06/18 12:00 05/06/18 12:01 DC 05/06/18 11:50 10 MG Paroxetine HCl (Paxil) 40 mg QHS 05/04/18 21:00 05/06/18 20:41 40 MG Piperacillin Sod/ Tazobactam Sod (Zosyn Per Pharmacy) 1 each PRN DAILY PRN 05/03/18 22:30 05/07/18 12:36 DC Piperacillin Sod/ Tazobactam Sod 2.25 gm/Sodium Chloride 50 ml @ 100 mls/hr Q6HRS 05/05/18 12:00 05/07/18 12:36 DC 05/07/18 11:22 100 MLS/HR Piperacillin Sod/ Tazobactam Sod 3.375 gm/Sodium Chloride 50 ml @ 100 mls/hr Q6HRS 05/04/18 06:00 05/05/18 07:45 DC 05/05/18 05:18 100 MLS/HR Saliva Substitute (Biotene Moisturizing Mouth) 2 spray PRN Q15MIN PRN 05/04/18 09:15 Sodium Chloride 1,000 ml @ 150 mls/hr Q6H40M 05/03/18 22:30 05/04/18 22:29 DC 05/04/18 18:50 150 MLS/HR Temazepam (Restoril) 7.5 mg PRN QHS PRN 05/04/18 08:45 Tramadol HCl (Ultram) 50 mg PRN Q6HRS PRN 05/04/18 08:45 05/04/18 10:13 DC Vancomycin HCl (Vanco Per Pharmacy) 1 each PRN DAILY PRN 05/03/18 22:30 05/04/18 10:05 DC 05/04/18 01:50 1 EACH Vancomycin HCl (Vancomycin Trough Level) 1 each 1X ONCE 05/06/18 00:30 05/06/18 00:30 DC Vancomycin HCl 1.5 gm/Sodium Chloride 500 ml @ 250 mls/hr Q24H 05/05/18 01:00 05/05/18 01:00 DC Vancomycin HCl 2 gm/Sodium Chloride 500 ml @ 250 mls/hr 1X ONCE 05/03/18 23:00 05/04/18 00:59 DC 05/04/18 00:24 250 MLS/HR Vitamin D (Vitamin D3) 2,000 unit DAILY 05/06/18 12:00 05/06/18 12:59 DC 05/06/18 11:49 2,000 UNIT Lab Laboratory Tests Test 05/06/18 16:44 05/06/18 20:46 05/07/18 07:24 05/07/18 11:18 Glucose (Fingerstick) 147 mg/dL (70-99) 252 mg/dL (70-99) 170 mg/dL (70-99) 113 mg/dL (70-99) Results All relevant outside records, renal labs, imaging studies, telemetry/EKG's were reviewed. ALEXSANDRA WINSTON MD May 07, 2018 15:32
--- NOTE | 2018-05-07 16:06 | PDOC ---
PROGRESS NOTES Assessment Assessment Metabolic encephalopathy. Hallucinations. UTI. Leukocytosis. Elevated ESR, 103. Elevated CRP 99.8. Left LE cellulitis. Left shoulder fracture, 3 weeks ago. Left distal calcaneus fracture, chronic. Osteomyelitis. Renal failure. CKD. DM. Peripheral neuropathy. Anemia. Right C7 radiculopathy. CAD s/p CABG. Bipolar disorder. Vit D insufficiency. RECOMMENDATIONS/PLAN: Consulted ID. Treat medical diseases. Vit D supplement. OT/PT. Rehab as needed. Discussed with his at bedside on 05/06/18. EEG on 05/04/18: Mild encephalopathy. HISTORY OF THE PRESENT ILLNESS: 62-y-old male patient with above medical and orthopedic diseases was treated win outside hospital then went rehab. He was noted MS changes and hallucinations. After discontinued narcotics, but he still has hallucination, so he was brought to the ER of [facility]. Past Medical History Past Medical History [facility] patient with history of CVA, left shoulder fracture, left ankle/foot cellulitis Cardiovascular: CAD, CHF, HTN, NH, Hyperlipidemia Pulmonary: No pertinent hx CENTRAL NERVOUS SYSTEM: CVA, Other GI: GERD, Peptic Ulcer disease, Other Heme/Onc: No pertinent hx Hepatobiliary: No pertinent hx Psych: Anxiety Musculoskeletal: Osteoarthritis Rheumatologic: No pertinent hx Infectious disease: No pertinent hx Renal/: Chronic renal insuff Past Surgical History CABG, Total hip replacement, Colon Resection, Other Family History Coronary Artery Disease, Heart Disease Social History Smoke: No ALCOHOL: none Drugs: None ALLERGY: Reviewed. MEDICATIONS: Refer to MAR REVIEW OF SYSTEMS: Constitutional: No malnutrition, weight loss, cachexia. Head: No traumatic brain or head injury. Skin: No edema, or rash. Ear: No infection. Eyes: No vision loss or color blindness. Nose: No bleeding or purulent discharges. Hearing: No hearing decrease. Cardiac: CAD, s/p CABG, HTN. Pulmonary: No COPD. GI: No GI ulcer, GI bleeding. Urinary/genital: CKD. Endocrinologic: Diabetes Mellitus. Skeletomuscular: Fractures in shoulder and foot. Neurological: see HP. Psychiatric: Denies drug use/abuse. Otherwise, not [id number] review of systems. PHYSICAL EXAMINATION: General appearance is in subacute on chronic distress. HEENT: Normocephalic and nontraumatic. Eyes, nose, ears, and throat are unremarkable. Neck is supple. No lymphadenopathy. No crepitus. Cardiovascular: S1, S2, regular rate and rhythm. Pulmonary: Clear to auscultation bilaterally. Abdomen: Bowel sounds are positive. Abdomen is soft, nontender, and nondistended. Extremities: No rash, lesions, or edema. No restriction of range of motion NEUROLOGICAL EXAMINATION: Awake. Oriented to time, place and person. PERRL. EOMI. CN: no focal findings. Muscle tone: within normal. Muscle strength: 4+ UE, 4- LE DTR: 2- UE, 0 at knee. Plantar reflex: Flexor response at right side. Not able to access left side since wrapped. Gait: Able to walk. Sensory exam: no abnormal findings in UE, decreased vibration sense in LE. No cerebellar signs elicited. F-T-N test fine Objective Objective Vital Signs Date Time Temp Pulse Resp B/P (MAP) Pulse Ox O2 Delivery O2 Flow Rate FiO2 05/07/18 15:02 50 146/57 05/07/18 14:57 97.7 20 92 Room Air 97.7 05/07/18 00:23 2.0 Intake and Output 05/07/18 07:00 Intake Total 630 ml Output Total 100 ml Balance 530 ml Intake Oral 480 ml IV Total 150 ml Output Urine Total 100 ml # Voids 6 # Bowel Movements 3 Vitals Signs Vitals VS - Last 72 Hours, by Label Date Time Temp Pulse Resp B/P (MAP) Pulse Ox O2 Delivery O2 Flow Rate FiO2 05/07/18 15:02 50 146/57 05/07/18 15:02 50 146/57 05/07/18 14:57 97.7 50 20 146/57 (86) 92 Room Air 97.7 05/07/18 11:21 49 167/59 05/07/18 11:11 97.7 49 20 167/59 (95) 97 Room Air 97.7 05/07/18 09:19 20 100 Room Air 05/07/18 08:19 20 100 Room Air 05/07/18 08:18 52 229/77 05/07/18 08:17 52 229/77 05/07/18 08:15 52 229/77 05/07/18 08:14 52 229/77 05/07/18 08:00 Room Air 05/07/18 07:00 98.4 52 16 229/77 (127) 100 Room Air 98.4 05/07/18 03:41 54 214/77 05/07/18 03:00 98.4 54 18 214/77 (122) 96 Room Air 98.4 05/07/18 00:23 2.0 05/06/18 23:34 55 206/61 05/06/18 23:23 93 Room Air 2.0 05/06/18 23:00 97.9 55 18 206/61 (109) 97 Room Air 97.9 05/06/18 20:41 54 171/66 05/06/18 20:41 54 171/66 05/06/18 20:00 Room Air 2.0 05/06/18 19:00 99.0 65 18 189/62 (104) 93 Room Air 99.0 05/06/18 18:17 Room Air 05/06/18 15:00 98.5 54 18 171/66 (101) 96 Room Air 98.5 05/06/18 13:53 55 154/60 05/06/18 13:00 Room Air 05/06/18 11:50 Room Air 05/06/18 11:00 97.4 56 18 111/49 (69) 96 Room Air 97.4 05/06/18 08:22 57 177/68 05/06/18 08:12 57 177/68 05/06/18 08:00 Room Air 05/06/18 07:00 97.5 57 17 177/68 (104) 92 Room Air 97.5 Laboratory Laboratory Laboratory Tests Test 05/06/18 16:44 05/06/18 20:46 05/07/18 07:24 05/07/18 11:18 Glucose (Fingerstick) 147 mg/dL (70-99) 252 mg/dL (70-99) 170 mg/dL (70-99) 113 mg/dL (70-99) Microbiology 05/04/18 Blood Culture - Preliminary, Resulted NO GROWTH AFTER 3 DAYS 05/03/18 Urine Culture - Final, Complete 05/03/18 Urine Culture Result 1 (ANDREIA) - Final, Complete 05/03/18 Antimicrobic Susceptibility - Final, Complete Medication Medications Current Medications Amlodipine Besylate (Norvasc) 5 mg DAILY PO Last administered on 05/07/18at 08: 17; Start 05/07/18 at 03:45 Amoxicillin (Amoxil) 500 mg BID PO ; Start 05/07/18 at 21:00 Hydralazine HCl (Apresoline) 50 mg TID PO Last administered on 05/07/18at 15:02 ; Start 05/07/18 at 10:30 Metoprolol Tartrate (Lopressor) 50 mg BID PO Last administered on 05/07/18at 08 :15; Start 05/06/18 at 21:00 Comment Review of Relevant I have reviewed the following items rebeka (where applicable) has been applied. QUENTIN KHAN MD May 07, 2018 16:06
[2018-05-07] MEDS ORDERED: AMOXICILLIN 250 MG CAPSULE. PO SCH (21:00)
== END 2018-05-07 16:22 | DRG 871 ==
LOC: ER 19:30 → 5 NORTH 21:30
PROVIDERS: ADMIT Internal Medicine; ATTEND Internal Medicine
DX: A41.9 Sepsis, unspecified organism (principal); G93.41 Metabolic encephalopathy; N17.0 Acute kidney failure with tubular necrosis; S42.92XA Fracture of left shoulder girdle, part unspecified, initial encounter for closed fracture; N39.0 Urinary tract infection, site not specified; I13.0 Hypertensive heart and chronic kidney disease with heart failure and stage 1 through stage 4 chronic kidney disease, or unspecified chronic kidney disease; L03.116 Cellulitis of left lower limb; I50.32 Chronic diastolic (congestive) heart failure; F41.9 Anxiety disorder, unspecified; F31.9 Bipolar disorder, unspecified; Z86.73 Personal history of transient ischemic attack (TIA), and cerebral infarction without residual deficits; G89.29 Other chronic pain; E11.22 Type 2 diabetes mellitus with diabetic chronic kidney disease; M48.00 Spinal stenosis, site unspecified; I25.10 Atherosclerotic heart disease of native coronary artery without angina pectoris; E78.5 Hyperlipidemia, unspecified; K21.9 Gastro-esophageal reflux disease without esophagitis; M19.90 Unspecified osteoarthritis, unspecified site; Z96.649 Presence of unspecified artificial hip joint; D63.8 Anemia in other chronic diseases classified elsewhere; E11.42 Type 2 diabetes mellitus with diabetic polyneuropathy; E11.319 Type 2 diabetes mellitus with unspecified diabetic retinopathy without macular edema; G47.33 Obstructive sleep apnea (adult) (pediatric); H04.129 Dry eye syndrome of unspecified lacrimal gland; F17.201 Nicotine dependence, unspecified, in remission; M1A.00X0 Idiopathic chronic gout, unspecified site, without tophus (tophi); N40.0 Benign prostatic hyperplasia without lower urinary tract symptoms; N52.9 Male erectile dysfunction, unspecified; E11.51 Type 2 diabetes mellitus with diabetic peripheral angiopathy without gangrene; M54.12 Radiculopathy, cervical region; N18.3 Chronic kidney disease, stage 3 (moderate); R32 Unspecified urinary incontinence; I95.9 Hypotension, unspecified; E55.9 Vitamin D deficiency, unspecified; X58.XXXA Exposure to other specified factors, initial encounter; K59.00 Constipation, unspecified; Z95.1 Presence of aortocoronary bypass graft; Z88.6 Allergy status to analgesic agent; Z88.8 Allergy status to other drugs, medicaments and biological substances; I25.2 Old myocardial infarction; Z87.11 Personal history of peptic ulcer disease; Z82.49 Family history of ischemic heart disease and other diseases of the circulatory system; Y93.9 Activity, unspecified; Y92.89 Other specified places as the place of occurrence of the external cause; Y99.8 Other external cause status
CPT/HCPCS: 36415; 70450; 73610; 73721; 80048; 80053; 80307; 81001; 82306; 82607; 82962; 84443; 85007; 85025; 85379; 85651; 86140; 87040; 87086; 87186; 87641; 93005; 95816; 96374; G0480; J1650; J1815; J2405; J2543; J3010; J3370; J7030; J7040; 97530; 97535; 99285-25; G0479

== ENCOUNTER 2021-10-09 23:13 | Emergency (ER) | payer OTHER ==
[~2021-10-09] VITALS: Ht 182.9 cm; Wt 99.8 kg
[~2021-10-09 23:13] MED LIST changes: +ACET325T9 PO; +ALLO100T PO; +AMLO-186 PO; +AMLO-187 PO; +ASCO500C PO; -ASPI-612 PO; +ASPI-886 PO; +ASPI325T8 PO; +CARV6.2511 PO; +CHOL2000 PO; +CHOL500021 PO; +CLON0.1T PO; +CLON1PAT TD; +COLC0.6T34 PO; +CYCL100S4 PO; +DICL100G59 TP; +DIVA500T17 PO; +DIVA500T2 PO; +DONE10TA61 PO; +DOXY100C3 PO; +FERR325T14 PO; +GABA-585 PO; +GABA600T7 PO; +GUAI600T47 PO; +HYDR-2759 PO; +HYDR-2869 PO; +HYDR100T24 PO; +HYDR10TA2 PO; +HYDR28OI2 TP; +INSU100C SQ; +INSU100C4 SQ; +INSU100I13 SQ; +INSU100V13 SQ; +INSU200I SQ; +ISOS120T4 PO; +ISOS20TA6 PO; -ISOS30TA4 PO; +ISOS30TA68 PO; +LEVO25TA4 PO; +LIDO5JEL8 TP; +LIDO700A21 TP; +LORA0.5T96 PO; -LOSA25TA5 PO; +LOSA25TA54 PO; +METO100T7 PO; +MICO71PO TP; +MULT-246 PO; +OMEG1CAP6 PO; +ONDA-84 PO; +OXYC5TAB4 PO; -POLY17PO3 PO; +POLY17PO52 PO; +QUET25TA5 PO; +TEMA7.5C PO; +ZINC50TA33 PO; +ZINC50TA39 PO
--- NOTE | 2021-10-09 23:25 | PHYS DOC ---
Past Medical History Past Medical History: Anemia, Anxiety, Bipolar, CAD, CVA, Diabetes-Type II, Hypertension, Other Additional Past Medical Histor: CHRONIC BACK PAIN,OSTEOMYELITIS,SPINAL STENOSIS,CKD;PTSD (SCOTTY HUSTON APRN) Past Surgical History: Coronary Bypass Surgery, Other Additional Past Surgical Histo: L LEG,BACK,L FOOT (SCOTTY HUSTON APRN) Smoking Status: Unknown if ever smoked Alcohol Use: None Drug Use: None (SCOTTY HUSTON APRN) General Adult EDM: Chief Complaint: MECHANICAL FALL HPI: HPI: Patient is a 65-year-old male who presents to the emergency department via EMS after a fall that occurred at a [facility]. Patient was in bed when he rolled out of a bed. EMS reports that the bed was very low to the ground. Event occurred 1 hour prior to arrival. Patient hit the right side of his forehead on the floor. He denies any loss of consciousness, blood thinner use, nausea, vomiting, confusion, neck or back pain, saddle anesthesias, loss of bowel or bladder. Patient did denies any pain. Patient is on a daily aspirin. (SCOTTY HUSTON APRN) Review of Systems: Review of Systems: HENT: See HPI GI: See HPI : See HPI Musculoskeletal: See HPI Integument: Reports abrasion to right forehead Neurologic: See HPI (SCOTTY HUSTON APRN) Heart Score: C/O Chest Pain: N/A Risk Factors: Risk Factors: DM, Current or recent (<one month) smoker, HTN, HLP, family history of CAD, obesity. Risk Scores: Score 0 - 3: 2.5% MACE over next 6 weeks - Discharge Home Score 4 - 6: 20.3% MACE over next 6 weeks - Admit for Clinical Observation Score 7 - 10: 72.7% MACE over next 6 weeks - Early Invasive Strategies (SCOTTY HUSTON APRN) Allergies: Allergies: Allergies Coded Allergies Type Severity Reaction Last Updated Verified indomethacin Allergy Intermediate 03/05/16 Yes lisinopril Allergy Intermediate 03/05/16 Yes sertraline Allergy Intermediate 03/05/16 Yes (SCOTTY HUSTON APRN) Physical Exam: PE: Constitutional: Well developed, well nourished, no acute distress, non-toxic appearance. [] HENT: Normocephalic, abrasion and 2 cm hematoma noted to right forehead, no otorrhea, no raccoon or wheeler sign, bilateral external ears normal, oropharynx moist, no oral exudates, nose normal. [] Eyes: PERRL, EOMI, conjunctiva normal, no discharge. [] Neck: Normal range of motion, no bony spinal tenderness, no step-offs or deformities, supple, no stridor. [] Cardiovascular:Heart rate regular rhythm, no murmur, no chest wall tenderness with palpation [] Lungs & Thorax: Bilateral breath sounds clear to auscultation [] Abdomen: Bowel sounds normal, soft, no tenderness, no masses, no pulsatile masses. [] Skin: Warm, dry, no erythema, no rash. [] Back: No tenderness Extremities: No tenderness, no cyanosis, no clubbing, ROM intact, no edema, no pain with palpation of hips or pelvis, no shortening or rotation. [] Neurologic: Alert and oriented X 3, normal motor function, normal sensory function, no focal deficits noted. [] Psychologic: Affect normal, judgement normal, mood normal. [] (SCOTTY HUSTON APRN) EKG: EKG: [] (SCOTTY HUSTON APRN) Radiology/Procedures: Radiology/Procedures: []PROCEDURE: CT HEAD AND CERVICAL SPINE WO Exam Date: 10/09/2021 11:[address] HEAD AND C-SPINE WO Indication: Reason: fall from bed, contusion on right forehead / Spl. Inst ructions: / History: . One or more of the following dose reduction techniques were utilized: *Automated exposure control (AEC) *Adjustment of mA and/or kV according to patient size *Use of iterative reconstruction technique *CT scan done according to ALARA, or ALARA/IMAGE GENTLY EXAMINATION: CT OF THE HEAD WITHOUT CONTRAST INDICATION: Trauma, head injury, headache; TECHNIQUE: Noncontrast helical axial CT images of the head were obtained. FINDINGS: The ventricles and sulci are prominent consistent with cerebral volume loss. Patchy ill-defined low attenuation areas in the subcortical and periventricular white matter bilaterally are consistent with microvascular disease. There is no evidence of acute intracranial hemorrhage, extra-axial collection, mass effect, midline shift, or acute territorial infarct. No lesion of the skull base or the calvarium is seen. The visualized paranasal sinuses, left mastoid air cells, and orbits are normal in appearance. There is opacification of the right mastoid air cells which is nonspecific. IMPRESSION: No evidence for acute intracranial abnormality. Volume loss and microvascular disease. Opacification of the right mastoid air cells is nonspecific but may represent mastoiditis. Correlate clinically. EXAMINATION: CT OF THE CERVICAL SPINE WITHOUT CONTRAST Clinical Indication: Cervical spine pain after trauma Technique: Thin cut helical axial CT images through the cervical spine were obtained without contrast on a multi-detector CT scanner. Source data was then reconstructed into sagittal and coronal planes. Findings: Alignment is maintained without spondylolisthesis. Vertebral body heights are maintained without acute fracture. Mild multilevel degenerative changes noted. No significant prevertebral soft tissue swelling is demonstrated. No severe osseous central canal stenosis is seen. Impression: No evidence of acute cervical spine fracture or subluxation. Electronically signed by: Thaddeus Finch MD (10/10/2021 12:03 AM) [facility] DICTATED and SIGNED BY: THADDEUS FINCH MD DATE: 10/09/212351 (SCOTTY HUSTON APRN) Course & Med Decision Making: Course & Med Decision Making Pertinent Labs and Imaging studies reviewed. (See chart for details) [] Patient presents to the emergency department following a fall out of bed that occurred 1 hour prior to arrival the [facility]. Patient has no complaints but he is noted to have an abrasion and hematoma to his right forehead. CT imaging of head and neck was performed. Negative For any acute findings. VSS Patient advised to take Tylenol and ibuprofen for pain and follow-up with the primary care provider. I discussed with patient all findings and diagnostic testing as well as the need to follow-up with PCP for further evaluation and treatment or return to the ER if any new or worsening symptoms. Strict return precautions were also discussed at length. Patient voiced understanding and agreement with the plan. Patient is hemodynamically stable at the time of disposition. (SCOTTY HUSTON APRN) Course & Med Decision Making Patients Care and treatment plan provided by ER Nurse Practitioner. I was available for consult. Patient's chart reviewed. (LAUREL RAMOS DO) Dragon Disclaimer: Dragon Disclaimer: This electronic medical record was generated, in whole or in part, using a voice recognition dictation system. (SCOTTY HUSTON APRN) Departure Departure Impression: Primary Impression: Fall Qualified Codes: W19.XXXA - Unspecified fall, initial encounter Disposition: HOME / SELF CARE / HOMELESS Condition: GOOD Referrals: MARILEE BACH APRN (PCP) Patient Instructions: Fall Prevention and Home Safety, Head Injury, Adult, [id number] Additional Instructions: You are seen in the emergency department today following a fall with a head injury. Imaging was performed of your head and neck which showed no acute fin dings. You can take Tylenol at home for your pain you can also apply ice. Follow-up with your primary care provider tomorrow regarding your ER visit. Return to the emergency department if you develop worsening of your pain, confusion, seizure-like activity, intractable nausea or vomiting, vision changes, weakness, speech changes, poor coordination. SCOTTY HUSTON APRN Oct 09, 2021 23:25 LAUREL RAMOS DO Oct 10, 2021 04:11
--- NOTE | 2021-10-10 00:05 | RAD ---
Exam Date: 10/09/2021 11:[address] HEAD AND C-SPINE WO Indication: Reason: fall from bed, contusion on right forehead / Spl. Instructions: / History: . One or more of the following dose reduction techniques were utilized: *Automated exposure control (AEC) *Adjustment of mA and/or kV according to patient size *Use of iterative reconstruction technique *CT scan done according to ALARA, or ALARA/IMAGE GENTLY EXAMINATION: CT OF THE HEAD WITHOUT CONTRAST INDICATION: Trauma, head injury, headache; TECHNIQUE: Noncontrast helical axial CT images of the head were obtained. FINDINGS: The ventricles and sulci are prominent consistent with cerebral volume loss. Patchy ill-defined low attenuation areas in the subcortical and periventricular white matter bilaterally are consistent with microvascular disease. There is no evidence of acute intracranial hemorrhage, extra-axial collecti on, mass effect, midline shift, or acute territorial infarct. No lesion of the skull base or the calv arium is seen. The visualized paranasal sinuses, left mastoid air cells, and orbits are normal in anshul earance. There is opacification of the right mastoid air cells which is nonspecific. IMPRESSION: No evidence for acute intracranial abnormality. Volume loss and microvascular disease. Opacification of the right mastoid air cells is nonspecific but may represent mastoiditis. Correlate clinically. EXAMINATION: CT OF THE CERVICAL SPINE WITHOUT CONTRAST Clinical Indication: Cervical spine pain after trauma Technique: Thin cut helical axial CT images through the cervical spine were obtained without contrast on a multi-detector CT scanner. Source data was then reconstructed into sagittal and coronal planes. Findings: Alignment is maintained without spondylolisthesis. Vertebral body heights are maintained without acute fracture. Mild multilevel degenerative changes no blanco. No significant prevertebral soft tissue swelling is demonstrated. No severe osseous central kamron l stenosis is seen. Impression: No evidence of acute cervical spine fracture or subluxation. Electronically signed by: Sea Finch MD (10/10/2021 12:03 AM) [facility]
[2021-10-10 01:00] VITALS: BP 209/81
== END 2021-10-10 01:14 | disposition home or self-care (01) ==
LOC: ER 23:13
DX: S00.83XA Contusion of other part of head, initial encounter (principal); F31.9 Bipolar disorder, unspecified; E11.22 Type 2 diabetes mellitus with diabetic chronic kidney disease; I12.9 Hypertensive chronic kidney disease with stage 1 through stage 4 chronic kidney disease, or unspecified chronic kidney disease; N18.9 Chronic kidney disease, unspecified; I25.10 Atherosclerotic heart disease of native coronary artery without angina pectoris; Z86.73 Personal history of transient ischemic attack (TIA), and cerebral infarction without residual deficits; Z88.1 Allergy status to other antibiotic agents; Z88.8 Allergy status to other drugs, medicaments and biological substances; Z88.6 Allergy status to analgesic agent; W06.XXXA Fall from bed, initial encounter; Y93.89 Activity, other specified; Y92.89 Other specified places as the place of occurrence of the external cause; Y99.8 Other external cause status
CPT/HCPCS: 70450; 72125; 99284-25